=== PATIENT | female | born 1990 | race Caucasian/White ===

== ENCOUNTER 2020-05-23 05:09 | Outpatient (CLI) | payer BC, MEDICAID, OTHER ==
[~2020-05-23] VITALS: Ht 160 cm; Wt 60.9 kg
[~2020-05-23 05:09] MED LIST: CODE-54 PO; CPR500T PO; FERR325C PO; FRS325T PO; IBP600T1 PO; IBP800T PO; MUPI1OIN6 TP; NAPR-915 PO; ONDA4TAB11 PO; PREN1TAB39; PREN1TAB39 PO; SULF1TAB35 PO
--- NOTE | 2020-05-23 05:18 | NUR ---
TOMAS OGDEN presented to unit via ambulation from ED, accompanied by s/o, with c/o CONTRACTIONS. TOMAS OGDEN weighed, gowned, voided, and to bed. EFHM and TOCO applied, VS taken. TOMAS OGDEN oriented to bed controls, call light, TV, heat, and A/C controls. above details and further assessments carried out per VINH ARTHUR.
[2020-05-23 05:24] VITALS: BP 123/75
[2020-05-23 05:37] VITALS: BP 123/75
--- NOTE | 2020-05-23 06:33 | NUR ---
This RN called Dr Strickland to notify of patient arrival with complaints of contractions since 1999 last night. Notified of SVE upon arrival and latest SVE, contraction pattern, gestational age and FHR variability. New orders for discharge home received.
--- NOTE | 2020-05-23 06:50 | NUR ---
Discharge instructions reviewed and given to patient. Noted to patient that Dr Strickland would like her to schedule an appointment this week to be seen at this office. Patient verbalized understanding.
--- NOTE | 2020-05-23 06:56 | NUR ---
Patient and ambulating off of unit to private vehicle.
--- NOTE | 2020-05-24 08:53 | Physician Query-Final Dx ---
JANET CABRALES 05/24/20 0853: Clinic Account Progress/Dx Physician Query: Please give diagnosis Please include # weeks gestation Date of Service May 23, 2020 at 05:09 JESÚS SCHWARTZ DO 05/24/20 1345: Clinic Account Progress/Dx Physician Query: Please give diagnosis DIAGNOSIS: Diagnosis Intrauterine at 39 2/7 weeks 2. Contractions JANET CABRALES May 24, 2020 08:53 JESÚS SCHWARTZ DO May 24, 2020 13:45
== END 2020-05-23 06:56 | disposition home or self-care (01) ==
LOC: WSo 05:09 → LDRP 05:09 → WSo 06:56
PROVIDERS: ATTEND Obstetrics & Gynecology
DX: O62.9 Abnormality of forces of labor, unspecified (principal); Z3A.39 39 weeks gestation of pregnancy
CPT/HCPCS: 99213

== ENCOUNTER 2020-06-02 21:42 | Observation (INO) | payer MEDICAID ==
[~2020-06-02] VITALS: Ht 160 cm; Wt 59.6 kg
--- NOTE | 2020-06-02 21:50 | NUR ---
TOMAS OGDEN presented to unit via ambulatory from ED, accompanied by s.o., with c/o DECREASED MOVEMENT. TOMAS OGDEN weighed, gowned, voided, and to bed. EFHM and TOCO applied, VS taken. TOMAS OGDEN oriented to bed controls, call light, TV, heat, and A/C controls.
[2020-06-02 22:03] VITALS: BP 130/74
[2020-06-02 22:07] VITALS: BP 130/74
--- NOTE | 2020-06-02 22:14 | NUR ---
pt states she has not had care since dec 2019 due to covid-19.
[2020-06-02 22:22] LABS: BILIRUBIN,URINE NEGATIVE (NEGATIVE); COLOR,URINE YELLOW; GLUCOSE, URINE (UA) NEGATIVE (NEGATIVE); KETONES,URINE NEGATIVE (NEGATIVE); LEUKOCYTE ESTERASE ,URINE NEGATIVE (NEGATIVE); NITRITE,URINE NEGATIVE (NEGATIVE); PROTEIN,URINE NEGATIVE (NEGATIVE)
[2020-06-02 22:26] LABS: CLARITY,URINE SL CLOUDY
[2020-06-02 22:29] LABS: BACTERIA,URINE TRACE /HPF
[2020-06-02 23:00] VITALS: BP 114/72
--- NOTE | 2020-06-02 23:17 | NUR ---
Dr Strickland notified of pt arrival and status. Informed that she hasn't had PNC since dec. no GBS on file. New orders received. Will monitor pt overnight. Give IV fluids and notify him of any changes.
[2020-06-02] MEDS: D5 LR IV SOLUTION 1,000 ML IV SCH (23:42)
[2020-06-03] VITALS: BP 108/58
[2020-06-03 00:02] VITALS: BP 108/58
--- NOTE | 2020-06-03 00:15 | NUR ---
pt lying on left side. resting comfortably. states she feels occasional ctx
[2020-06-03 02:00] VITALS: BP 104/50
--- NOTE | 2020-06-03 02:00 | NUR ---
up to bathroom to void. denies any pain or ctx.
--- NOTE | 2020-06-03 05:45 | NUR ---
up to bathroom to void. no c/o of pain or ctx.
[2020-06-03 06:00] VITALS: BP 95/54
[2020-06-03] MEDS: D5 LR IV SOLUTION 1,000 ML IV SCH (06:07)
--- NOTE | 2020-06-03 06:30 | NUR ---
Dr Strickland called for update on pt. informed of sleeping all night with no c/o of ctx. Informed of variable decel at 0530 while pt sleeping. new orders received for pt to be dc'd and follow up with dr strickland in his clinic at 10. Pt states she is unable to drive to [facility]. dr strickland notified. instructed to go to [facility] at 10:00. pt informed and states she will go to clinic.
--- NOTE | 2020-06-03 06:55 | NUR ---
External monitors dc'd. IV removed, cath tip intact.
[2020-06-03 07:01] LABS: BASOPHILS % (AUTO) 0 % (0-10); EOSINOPHILS # (AUTO) 0.1 10^3/uL (0.0-0.3); EOSINOPHILS % (AUTO) 1 % (0-10); HEMATOCRIT 34 % (35-52); HEMOGLOBIN 10.9 G/DL (11.5-16.0); LYMPHOCYTES # (AUTO) 3.2 X 10^3 (1.0-4.0); LYMPHOCYTES % (AUTO) 29 % (12-44); MEAN CORPUSCULAR HEMOGLOBIN 29 PG (25-34); MEAN CORPUSCULAR HGB CONC 32 G/DL (32-36); MEAN CORPUSCULAR VOLUME 89 FL (80-99); MEAN PLATELET VOLUME 13.1 FL (7.4-10.4); MONOCYTES # (AUTO) 0.9 X 10^3 (0.0-1.0); MONOCYTES % (AUTO) 8 % (0-12); NEUTROPHILS # (AUTO) 6.7 X 10^3 (1.8-7.8); NEUTROPHILS % (AUTO) 61 % (42-75); PLATELET COUNT 216 10^3/uL (130-400); RED CELL DISTRIBUTION WIDTH 14.8 % (10.0-14.5); WHITE BLOOD COUNT 10.9 10^3/uL (4.3-11.0)
--- OUTSIDE RECORDS SUMMARY | 2020-06-03 08:34 | XMS REPORT ---
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 [employer] Address [address] [address] Care Team Providers Care Software Applications Designer Name Role Phone RAINER FOOTE Unavailable Unavailable LATOYA MICHELE Unavailable Unavailable KIA GRAYSON Unavailable Unavailable JIHAN, HAYLEE Unavailable Unavailable [facility] Unavailable [phone] LATOYA MICHELE Unavailable [facility] Unavailable SURAJ DUDLEY Unavailable JACK DO, NAILA C Unavailable Unavailable JACK DO, NAILA C Unavailable Unavailable Migration, Doctor Unavailable Unavailable Migration, Doctor Unavailable Unavailable Migration, Doctor Unavailable Unavailable DANILO [place] A BUSINESS ADMINISTRATION PROFESSOR Unavailable Unavailable SEAN CATES BUSINESS ADMINISTRATION PROFESSOR Unavailable Unavailable PEREA DO, DOMONIQUE K Unavailable Unavailable PEREA DO, DOMONIQUE K Unavailable Unavailable zzHEIMAN, HAYLEE Unavailable PEREA, DOMONIQUE Unavailable zzDANILO [place]FR[place] Unavailable zzHEIMAN, HAYLEE Unavailable PCP, OUTSIDE Unavailable Unavailable Unavailable Unavailable PEREA, DOMONIQUE Unavailable PEREA, DOMONIQUE Unavailable Migration, Doctor Unavailable Unavailable SEALS DO, JESÚS E Unavailable Unavailable JACK DO, NAILA C Unavailable Unavailable JACK DO, NAILA C Unavailable Unavailable ARUNA DO KATHY K Unavailable Unavailable VASU WEINSTEIN MD Unavailable Unavailable VASU WEINSTEIN MD Unavailable Unavailable Unavailable Unavailable Unavailable Unavailable Unavailable Unavailable Unavailable Unavailable Allergies The data below is from unstructured sources Substance Reaction Event Type N.K.D.A. Info Not Available Non Drug Allergy Allergen Type Severity Reaction Status Last Updated No Known Drug Allergies Active 12/11/07 No Information Encounters Encounter Date Encounter Type Encounter Diagnosis Care Provider Facility Start: Patient encounter JESÚS E SEALS DO [facility] 06-02-2020 procedure [facility] Start: Patient encounter JESÚS E SEALS DO [facility] 05-23-2020 procedure [facility] End: 05-23-2020 Start: Patient encounter NA NA [facility] 01-06-2020 procedure [facility] Start: [facility] Encounter for JESÚS SEALS [facility] 01-06-2020 supervision of other normal , first trimester Start: Telephone encounter JESÚS SEALS [facility] 12-24-2019 Start: Telephone [facility] 12-16-2019 Start: Patient encounter NA NA [facility] 12-01-2019 procedure [facility] ([id number]) Start: [facility] Encounter for JESÚS SEALS [facility] 12-01-2019 supervision of other normal , first trimester Start: Emergency department KATHY Robison ARUNA Not Avai lable ([id number]) 07-09-2018 patient visit End: 07-09-2018 Start: Patient encounter NA NA Not Availab le ([id number]) 07-09-2018 procedure Start: Emergency department KATHY VALDOVINOS DO [facility] 07-08-2018 patient visit [facility] End: 07-08-2018 Start: Patient encounter OUTSIDE [facility] 05-13-2018 procedure [facility] ([id number]) Start: Evaluation and DOMONIQUE PEREA DO Not Available ([id number]) 05-23-2012 management of inpatient End: 05-24-2012 Start: Patient encounter SEAN CATES Not Availab le ([id number]) 03-21-2012 procedure Start: Patient encounter AFRICA AQUILINOLATOYAMarlon Not Availab le ([id number]) 02-05-2012 procedure Start: Evaluation and VASU WEINSTEIN MD Not Availab le ([id number]) 08-01-2010 management of inpatient End: 08-02-2010 Start: Evaluation and VASU WEINSTEIN MD [facility] 08-01-2010 management of [facility] inpatient End: 08-01-2010 Medical Equipment No Information Goals No Information Immunizations Immunizatio Immunization Notes Care Provider Facility n Date Vaccination ; [facility] aguilera Translations: Work Phone: Marisol ([id number]) [vaccine] Interventions No Information Medications Medication Drug Dates Sig Sig (Original) Class(es) (Normalized) Ferrous Sulfate (Iron) Start: take 1 capsule Ferrou s Sulfate (Iron) 325 ( 65 )Mg 325 ( 65 )Mg Capsule.sa 05-13-2015 by mouth once Capsu le.sa 325 Mg ORAL Daily 90 Cap (1 source) daily 05/13/15 Ibuprofen (Motrin End: Ibuprofen (Motrin T ablet) 800 Mg Tablet, Tablet) 800 Mg Tablet, 1 05-23-2012 1 Each Oral As Needed Discontinued Each Oral (1 source) mupirocin 0.02 mg/mg RNA Start: apply 1 g Mupir ocin 1 Gm Oin.pf.juan 1 Gm TOPICAL topical ointment Synthetase 07-09-2018 topically twice Twice A Day 22 Tube 07/09/18 (1 source) Inhibitor daily Antibacter ial Start: 07-09-2018 apply 1 g Mupirocin 1 Gm topically Oin.pf.juan 1 twice Gm TOPICAL daily Twice A Day 22 Tube 07/09/18 naproxen 500 mg oral Nonsteroid Start: take 1 tablet Nap roxen 500 Mg Tablet 500 Mg ORAL Twice tablet al 07-09-2018 by mouth twice A Day 20 Ta b 07/09/18 (1 source) Anti-infla daily mmatory Drug Start: 07-09-2018 take 1 Naproxen 500 tablet by Mg Tablet 500 mouth Mg ORAL Twice twice A Day 20 Tab daily 07/09/18 Ondansetron (Ondansetron Start: Ondansetron (Ondansetron Odt) 4 Mg Odt) 4 Mg Tab.rapdis, 4 11-21-2010 Tab.rapdis, 4 Mg Oral Every 6 Hours as Mg Oral needed 11/21/10 Discontinued (1 source) End: 05-23-2012 Vits Vits W-Ca,Fe,Fa( N OT APPLICABLE W-Ca,Fe,Fa(<1MG) () 1 Each Tablet (1 source) sulfamethoxazole 800 mg Dihydrofol Start: Sulfam ethoxazole/Trimethoprim (Bactrim / trimethoprim 160 mg ate 07-09-2018 Ds Table t) 1 Each Tablet 1 Each ORAL oral tablet Reductase Twice A Day 20 Tab 07/09/18 (1 source) Inhibitor Antibacter ial, Sulfonamid e Antimicrob ial Start: 07-09-2018 Sulfamethoxazo le/Trimethopri m (Bactrim Ds Tablet) 1 Each Tablet 1 Each ORAL Twice A Day 20 Tab 07/09/18 Payers No Information Plan of Treatment Date Care Activity Detail Author Start: Radiography of hand X-ray of left hand, three [facility] 07-09-2018 views [place] ([id number]) Problems Active Problems Problem Problem Date Last Documented Episodic/Chr Provider Classificati Recorded Date onic on E Codes: Contact with other sharp object(s), 05-23-2020 Epi sodic KATHY ARUNA DO Cut/pierceb not elsewhere classified, i nitial (6 sources) encounter Early or Threatened premature labor, 06-02-2020 Pieter LEONE threatened antepartum condition or JS SANTIAGO labor complication (2 sources) Abnormality of forces of labor, 05-24-2020 Episodi c JESÚS SEALS distress and unspecified DO abnormal forces of labor (1 source) Fluid and Dehydration 06-02-2020 Episodic VASU electrolyte JS SANTIAGO disorders (2 sources) Open wounds Laceration without foreign body of 05-23-2020 Epis odic KATHY ARUNA DO of left hand, initial encounte r ; extremities Translations: [Puncture wou nd (9 sources) without foreign body of lef t hand, initial encounter] Other Anemia of mother, delivered, with Chronic DOMONIQUE PEREA complication mention of complication DO s of ; puerperium affecting management of mother (3 sources) Other Other specified complications of 06-02-2020 Episod ic VASU complication , antepartum condition or JS SANTIAGO s of complication (2 sources) Residual 39 weeks gestation of 05-24-2020 Episodi c JESÚS SEALS codes; DO unclassified (1 source) Substance-re Nicotine dependence, unspecified, 05-23-2020 Roll Scale Worker karen KATHY ARUNA DO lated uncomplicated disorders (6 sources) Past or Other Problems Problem Problem Date Last Documented Episodic/Chr Provider Classificati Recorded Date onic on Deficiency Anemia, unspecified Episodic DOMONIQUE BE AN and other DO anemia (3 sources) Fetopelvic Shoulder (girdle) dystocia, Episodic DOMONIQUE PEREA disproportio delivered, with or without mention DO n; of antepartum condition obstruction (3 sources) OB-related Second-degree perineal laceration, Episodic DOMONIQUE PEREA trauma to delivered, with or without mention DO perineum and of antepartum condition vulva (3 sources) Procedures Date Procedure Procedure Detail Performing Cl inician Start: Other manually NAILA JACK DO 05-12-2015 assisted delivery Start: Urnls dip Doctor Migration 05-21-2012 stick/tablet rgnt non-auto w/o micrscp Start: Urnls dip DOMONIQUE PEREA 05-14-2012 stick/tablet rgnt Other Phone: non-auto w/o micrscp Start: Urnls dip DOMONIQUE PEREA 05-01-2012 stick/tablet rgnt Other Phone: non-auto w/o micrscp Other manually NAILA JACK DO assisted delivery Repair of other DOMONIQUE PEREA DO current obstetric laceration Results Test Name Value Interpreta Reference Facilit Date tion Range y Time not yet categorized on 2020-06-03 WRISTBAND NUMBER [id number] Invalid PENDING Interpreta LOCATIO 020 tion Code [facility] 03:34-0 ([id number]) 400 laboratory on 2020-06-03 ABO and Rh group Nom OP Invalid PENDING 06-03 (Bld) Interpreta LOCATIO 020 tion Code N [facility] 03:35-0 ([id number]) 400 Blood group antibody Negative Invalid PENDING 06-03 screen Ql Interpreta LOCATIO 020 tion Code N [facility] 03:44-0 ([id number]) 400 laboratory on 2020-06-02 Bacteria LM Ql TRACE Invalid PENDING (Urine sed) Interpreta LOCATIO 020 tion Code N [facility] 17:50-0 ([id number]) 400 Basophils (Bld) 0.0 10*3/uL Negative 0.0-0.1 PENDING 06-02 [#/Vol] 10*3/uL LOCATIO 020 [facility] 19:30-0 ([id number]) 400 Basophils/100 WBC 0 % Negative 0-10 % PENDING 06-02 (Bld) LOCATIO 020 [facility] 19:30-0 ([id number]) 400 Bilirubin Ql (U) Negative Invalid NEGATIVE PENDING Interpreta LOCATIO 020 tion Code N [facility] 17:50-0 ([id number]) 400 Casts LM Ql (Urine NONE Invalid PENDING sed) Interpreta LOCATIO 020 tion Code N [facility] 17:50-0 ([id number]) 400 Clarity (U) SL CLOUDY Invalid PENDING Interpreta LOCATIO 020 tion Code N [facility] 17:50-0 ([id number]) 400 Color (U) YELLOW Invalid PENDING Interpreta LOCATIO 020 tion Code N [facility] 17:50-0 ([id number]) 400 Crystals LM Ql NONE Invalid PENDING (Urine sed) Interpreta LOCATIO 020 tion Code N [facility] 17:50-0 ([id number]) 400 Eosinophils (Bld) 0.1 10*3/uL Negative 0.0-0.3 PENDING [#/Vol] 10*3/uL LOCATIO 020 [facility] 19:30-0 ([id number]) 400 Eosinophils/100 WBC 1 % Negative 0-10 % PENDING (Bld) LOCATIO 020 [facility] 19:30-0 ([id number]) 400 Epithelial 10-25 Abnormal PENDING cells.squamous LM Ql LOCATIO 020 (Urine sed) N [facility] 17:50-0 ([id number]) 400 Erythrocyte 14.8 % High 10.0-14.5 PENDING distribution width % LOCATIO 020 (RBC) [Ratio] N [facility] 19:30-0 ([id number]) 400 Glucose Auto test Negative Invalid NEGATIVE PENDING 06-02 strip Ql (U) Interpreta LOCATIO 020 tion Code N [facility] 17:50-0 ([id number]) 400 Hematocrit (Bld) 34 % Low 35-52 % PENDING [Volume fraction] LOCATIO 020 [facility] 19:30-0 ([id number]) 400 Hemoglobin (Bld) 10.9 g/dL Low 11.5-16.0 PENDING [Mass/Vol] g/dL LOCATIO 020 [facility] 19:30-0 ([id number]) 400 Ketones Auto test Negative Invalid NEGATIVE PENDING 06-02 strip Ql (U) Interpreta LOCATIO 020 tion Code N [facility] 17:50-0 ([id number]) 400 Leukocyte esterase Negative Invalid NEGATIVE PENDING 05-19 Test strip Ql (U) Interpreta LOCATIO Tres tion Code N [facility] 17:50-0 ([id number]) 400 Lymphocytes (Bld) 3.2 10*3/uL Negative 1.0-4.0 PENDING [#/Vol] 10*3 LOCATIO Tres [facility] 19:30-0 ([id number]) 400 Lymphocytes/100 WBC 29 % Negative 12-44 % PENDING (Bld) LOCATIO 020 [facility] 19:30-0 ([id number]) 400 MCH (RBC) [Entitic 29 pg Negative 25-34 pg PENDING 05-19- mass] [place] 020 [facility] 19:30-0 ([id number]) 400 MCHC (RBC) 32 g/dL Negative 32-36 g/dL PENDING [Mass/Vol] [facility] 19:30-0 ([id number]) 400 MCV (RBC) [Entitic 89 Negative 80-99 PENDING 05-19-2 vol] [foz_us] [facility] 19:30-0 ([id number]) 400 Monocytes (Bld) 0.9 10*3/uL Negative 0.0-1.0 PENDING 06-02 [#/Vol] 10*3 [facility] 19:30-0 ([id number]) 400 Monocytes/100 WBC 8 % Negative 0-12 % PENDING 06-02 (Bld) [place] Tres [facility] 19:30-0 ([id number]) 400 Mucus Ql (Urine sed) SMALL Abnormal PENDING 06-02 LOCATIO Tres [facility] 17:50-0 ([id number]) 400 Neutrophils (Bld) 6.7 10*3/uL Negative 1.8-7.8 PENDING [#/Vol] 10*3 LOCATIO Tres [facility] 19:30-0 ([id number]) 400 Neutrophils/100 WBC 61 % Negative 42-75 % PENDING - (Bld) LOCATIO Tres [facility] 19:30-0 ([id number]) 400 Nitrite Ql (U) Negative Invalid NEGATIVE PENDING Interpreta LOCATIO 020 tion Code N [facility] 17:50-0 ([id number]) 400 pH (U) 7.0 [pH] Invalid 5-9 PENDING Interpreta LOCATIO 020 tion Code N [facility] 17:50-0 ([id number]) 400 Platelet mean volume 13.1 High 7.4-10.4 PENDING (Bld) [Entitic vol] [foz_us] LOCATIO 020 [facility] 19:30-0 ([id number]) 400 Platelets (Bld) 216 10*3/uL Negative 130-400 PENDING 06-02 [#/Vol] 10*3/uL LOCATIO 020 [facility] 19:30-0 ([id number]) 400 Protein Ql (U) Negative Invalid NEGATIVE PENDING Interpreta LOCATIO 020 tion Code N [facility] 17:50-0 (15394) 400 RBC (Bld) [#/Vol] 3.79 10*6/uL Low 4.35-5.85 PENDING 10*6/uL LOCATIO 020 [facility] 19:30-0 (17614) 400 RBC LM.HPF (Urine NONE Invalid PENDING sed) [#/Area] Interpreta LOCATIO 020 tion Code N [facility] 17:50-0 ([id number]) 400 RBC Ql (U) Negative Invalid NEGATIVE PENDING Interpreta LOCATIO 020 tion Code N [facility] 17:50-0 ([id number]) 400 Specific gravity (U) 1.010 Low 1.016-1.02 PENDING 0 [Rel density] 2 LOCATIO 020 [facility] 17:50-0 ([id number]) 400 Urinalysis complete NO Invalid PENDING W Reflex Culture Interpreta LOCATIO 020 panel - Urine tion Code N [facility] 17:50-0 ([id number]) 400 Urobilinogen (U) 0.2 mg/dL Invalid < = 1.0 PENDING [Mass/Vol] Interpreta mg/dL LOCATIO 020 tion Code N [facility] 17:50-0 (84022) 400 WBC (Bld) [#/Vol] 10.9 10*3/uL Negative 4.3-11.0 PENDING 10*3/uL LOCATIO 020 [facility] 19:30-0 (16925) 400 WBC LM.HPF (Urine Invalid [HPF] PENDING sed) [#/Area] Interpreta LOCATIO 020 tion Code N [facility] 17:50-0 ([id number]) 400 not yet categorized on 2019-12-01 CLINICAL Communi INFORMATION: ty [facility] (32975) COMMENT Invalid Communi Interpreta ty tion Code [facility] (29168) COMMENT Invalid Communi Interpreta ty tion Code [facility] (85890) Date of previous Communi biopsy [facility] (47716) Date of previous PAP Communi smear [facility] (52548) Last menstrual Communi period start date [facility] (29159) laboratory on 2019-12-01 ABO group Nom (Bld) O Invalid Communi Interpreta ty tion [facility] (33154) Basophils (Bld) 0.028 10*3/uL Normal 0-200 Communi [#/Vol] cells/uL [facility] (89919) Basophils/100 WBC 0.3 % Normal % Communi (Bld) [facility] (79258) Blood group antibody Detected Normal Communi screen Ql [facility] (49685) C. trachomatis rRNA Not detected Normal NOT Commu ni MACARIO+probe Ql (Unsp DETECTED ty spec) [facility] (56784) Seals Engraver Cyto Communi stain Nom (Cvx/Vag) ty [ID] [facility] (33571) Cytology study Invalid Communi comment Cyto stain Interpreta ty Eric (Cvx/Vag) tion [facility] [Interp] [facility] (61417) Eosinophils (Bld) 0.084 10*3/uL Normal 15-500 Commun i [#/Vol] cells/uL [facility] (47037) Eosinophils/100 WBC 0.9 % Normal % Commun i (Bld) [facility] (59712) Erythrocyte 12.5 % Normal 11.0-15.0 Communi distribution width % ty (RBC) [Ratio] [facility] (11916) General categories Invalid Communi Cyto stain (Cvx/Vag) Interpreta ty [Interp] tion Code [facility] (01296) HAV IgM IA Ql NON-REACTIVE Normal NON-REACTI Communi VE [facility] (16899) HBV core IgM IA Ql NON-REACTIVE Normal NON-REACTI Commun i VE [facility] (54838) HBV surface Ag IA Ql NON-REACTIVE Normal NON-REACTI Comm uni VE [facility] (37133) HCV Ab IA Ql NON-REACTIVE Normal NON-REACTI Communi VE [facility] (56578) HCV Ab Signal/Cutoff 0.02 {ratio} Normal <1.00 Comm uni IA [Rel units/Vol] [facility] (03045) Hematocrit (Bld) 37.9 % Normal 35.0-45.0 Communi [Volume fraction] % [facility] (20111) Hemoglobin (Bld) 13.0 g/dL Normal 11.7-15.5 Communi [Mass/Vol] g/dL [facility] (66912) HIV 1+2 Ab+HIV1 p24 NON-REACTIVE Normal NON-REACTI Commu ni Ag IA Ql VE [facility] (40622) Lymphocytes (Bld) 2.502 10*3/uL Normal 850-3900 Commun i [#/Vol] cells/uL [facility] (58991) Lymphocytes/100 WBC 26.9 % Normal % Commun i (Bld) [facility] (45471) MCH (RBC) [Entitic 31.6 pg Normal 27.0-33.0 Communi mass] pg [facility] (65751) MCHC (RBC) 34.3 g/dL Normal 32.0-36.0 Communi [Mass/Vol] g/dL ty [facility] (62973) MCV (RBC) [Entitic 92.2 fL Normal 80.0-100.0 Communi vol] fL ty [facility] (33160) Microorganism Invalid Communi identified Cyto Interpreta ty stain [facility] Microscopic Communi observation Cyto ty stain Nom (Cvx) [facility] (43583) Monocytes (Bld) 0.558 10*3/uL Normal 200-950 Communi [#/Vol] cells/uL ty [facility] (75172) Monocytes/100 WBC 6.0 % Normal % Communi (Bld) [facility] (85095) N. gonorrhoeae rRNA Not detected Normal NOT Commu ni MACARIO+probe Ql (Unsp DETECTED ty spec) [facility] (84590) Neutrophils (Bld) 6.129 10*3/uL Normal 4092-3385 Commun i [#/Vol] cells/uL ty [facility] (39785) Neutrophils/100 WBC 65.9 % Normal % Commun i (Bld) [facility] (23021) Pathologist Cyto Invalid Communi stain Nom (Cvx/Vag) Interpreta ty [ID] [facility] (77635) Platelet mean volume 12.2 fL Normal 7.5-12.5 Commu ni (Bld) [Entitic vol] fL ty [facility] (63739) Platelets (Bld) 231 10*3/uL Normal 140-400 Communi [#/Vol] Thousand/u ty L [facility] (17923) RBC (Bld) [#/Vol] 4.11 10*6/uL Normal 3.80-5.10 Communi Million/uL [facility] (49477) Reagin Ab RPR Ql (S) NON-REACTIVE Normal NON-REACTI Comm uni VE [facility] (43303) Rh Nom (Bld) Positive Invalid Communi Interpreta ty [facility] (76929) Rubella virus IgG Qn 6.84 Normal index Commu ni (S) ty [facility] (80242) Service comment Invalid Communi (Unsp spec) [Interp] Interpreta ty tion Code [facility] (86309) Specimen source Cyto Communi stain Nom (Cvx/Vag) ty [facility] (66961) Statement of Communi adequacy Cyto stain ty (Cvx/Vag) [Interp] [facility] (78709) WBC (Bld) [#/Vol] 9.3 10*3/uL Normal 3.8-10.8 Communi Thousand/u ty L [facility] (80353) Social History No Information Vital Signs Date Time Vital Sign Value Performing Clinician Facil it 05-21-2012 Body height 160.02 cm Doctor Migration [facility] 11:15-0400 [facility] (85446) 05-21-2012 Body temperature 98.3 [degF] Doctor Migration [facility] 11:15 [facility] (99547) 05-21-2012 Body weight 54.43 kg Doctor Migration [facility] 11:150 [facility] (97752) 05-14-2012 Body height 160.02 cm Pure [employer] [facility] 11:57-0400 Other Phone: [facility] (34886) 05-14-2012 Body temperature 97.9 [degF] [facility] [employer] [facility] 11:57-0400 Other Phone: [facility] ([id number]) 05-14-2012 Body weight 54.66 kg DOMONIQUEAdsame [facility] 11:57-0400 Other Phone: [facility] ([id number]) 05-01-2012 Body height 160.02 cm [employer] [facility] 15:-0400 Other Phone: [facility] ([id number]) 05-01-2012 Body temperature 99.1 [degF] DOMONIQUE [employer] [facility] [id number] Other Phone: [facility] ([id number]) 05-01-2012 Body weight 53.98 kg DOMONIQUE PEREA [facility] [id number] Other Phone: [facility] ([id number]) Functional Status The data below is from unstructured sourcesNo functional status results.No functional status information available.No functional status information available. Mental Status No Information Summary Purpose eClinicalWorks SubmissioneClinicalWorks SubmissioneClinicalWorks SubmissioneClinicalWorks SubmissioneClinicalWorks SubmissioneClinicalWorks SubmissioneClinicalWorks Submission Advance Directives Directive Response Recor ded Date/Time Advance Directives No 9:50pm Health Care Power of Area Relief Pilot No 05/11/15 9:50pm Organ Donor Yes 05/11/15 9:50pm Resuscitation Status Full Code 05/11/15 9:50pm Directive Response Recor ded Date/Time Advance Directives No 11:56pm Health Care Power of Area Relief Pilot No 07/08/18 11:56pm Organ Donor Yes 07/08/18 11:56pm Resuscitation Status Full Code 07/08/18 11:56pm Discharge Instructions Patient Instructions Physician Instructions New, Converted or Re-Newed RX: RX on Chart Additional Follow Up: Yes (6 weeks with Jack/Cyndee. No care. Needs contraception) Activity: Activity as Tolerated Driving Instructions: You May Drive NO SMOKING: NO SMOKING Nothing Inside Vagina: No Douching, No [place], No Tampons Discharge Diet: No Restrictions Symptoms to Report to : Swelling Increased, Bleeding Excessive, Fever Over 101 Degrees F, Cramps in Feet or Legs, Vaginal Discharge Foul For Any Problems or Questions: Contact Your Physician No hospital discharge instruction information available. Additional Source Comments This clinical document has been generated using [employer] software that has been certified by the Office of the National Coordinator for Health Information Technology (ONC 15.99.04.3023.Diam.31.00.0.614900) and the National Committee for Gaming Associate (NCQA, as an eMeasure certified technology). FOR RECORDS PERTAINING TO PATIENTS WHO ARE OR HAVE BEEN ENROLLED IN A CHEMICAL D EPENDENCY/SUBSTANCE ABUSE PROGRAM, SOME INFORMATION MAY BE OMITTED. This clinica l summary was aggregated from multiple sources. Caution should be exercised in using it in the provision of clinical care. This summary normalizes information from multiple sources, and as a consequence, information in this document may ma terially change the coding, format and clinical context of patient data. In bran tion, data may be omitted in some cases. CLINICAL DECISIONS SHOULD BE BASED ON T HE PRIMARY CLINICAL RECORDS. [employer] provides no warranty or guara ntee of the accuracy or completeness of information in this document.The followi information is based on time limited clinical information UNRECOGNIZED CONTENT PROVIDED BELOW FOR UNRECOGNIZED SECTION REASON FOR VISIT right lower back dental pain since yesterday. pt has had a broken tooth for [facility] hs...but just got bad yesterday. [id number]
--- OUTSIDE RECORDS SUMMARY | 2020-06-03 08:35 | XMS REPORT ---
Author Author Alfreda Cooper Doctor Organization [facility] Address Unknown Phone Unavailable Care Team Providers Care Jewelry Consultant Name Role Phone Migration, Doctor Unavailable Unavailable PROBLEMS Type Condition ICD9-CM Code AFU39-OD Code Onset Dates Condition S tatus SNOMED Code Problem Supervision of other normal V22.1 Active 664047597 Problem Maternal anemia of mother, c omplicating , childbirth, or the puerperium, unspecified as to episode of care 648.20 Active 05924298 Problem Screening for diabetes mellitus V77.1 Active 349334819 Problem Screening examination for venereal disease V74.5 Active 315538518 Problem Routine gynecological examination V72.31 Active 274401517721906 Problem Insufficient care V23.7 Act evelyn [id number] ALLERGIES No Information ENCOUNTERS Encounter Location Date Diagnosis [facility] [address] [id number] [address] [place] [address] Apr, Jaw pain R68.84 and Open fra cture of tooth, initial encounter S02.5XXB [place] [address] [place] [address] Oct, Encounter for Depo-Provera c ontraception Z30.42 [place] [address] [address] [id number] [address] [place] [address] Aug, Encounter for Depo-Provera c ontraception Z30.42 [place] [address] [place] [address] Aug, [place] [address] [place] [address] [id number] [place] [address] Aug, control counseling Z30 .9 [facility] [address] [id number] [address] [place] [address] Jun, Sore throat J02.9 and Strep pharyngitis J02.0 [facility] [address] [place] [id number] 57 Oct, Hematuria R31.9 [facility] [address] [id number] [address] [place] [address] Jul, [facility] [address] [facility] [id number] [address] [place] [address] Jul, Headache 784.0 and Back pain 724.5 [facility] [address] [id number] [address] [place] [address] Jun, Routine follow-up V24.2 [facility] [address] [id number] [address] [place] [address] Feb, [facility] [address] [id number] [address] [place] [address] Feb, [facility] [address] [id number] [address] [place] [address] Dec, [facility] [address] [id number] [address] [place] [address] Dec, [facility] [address] [id number] [address] [place] [address] Jun, [facility] [address] [facility] [id number] [address] [place] [address] Jun, [facility] [address] [id number] [address] [place] [address] Jun, [facility] [address] [id number] [address] [place] [address] May, [facility] [address] [id number] [address] [place] [address] Apr, [facility] [address] [id number] [address] [place] [address] Apr, [facility] [address] [id number] [address] [place] [address] Apr, [facility] [address] [id number] [address] [place] [address], [place] [address] 07 Apr, 2012 [facility] [address] [id number] [address] [place] [address], [place] [address] 05 Apr, 2012 [facility] [address] [id number] [address] [place] [address], [place] [address] March, [facility] [address] [id number] [address] [place] [address], [place] [address] March, [facility] [address] [id number] [address] [place] [address], [place] [address] March, [facility] [address] [id number] [address] [place] [address], [place] [address] March, [facility] [address] [id number] [address] [place] [address], [place] [address] Feb, [facility] [address] [id number] [address] [place] [address], [place] [address] 04 Feb, 2012 [facility] [address] [id number] [address] [place] [address], [place] [address] 03 Feb, 2012 [facility] [address] [id number] [address] [place] [address], [place] [address] 23 Jan, 2012 [facility] [address] [id number] [address] [place] [address], [place] [address] 16 Jan, 2012 [facility] [address] [id number] [address] [place] [address], [place] [address] 15 Jan, 2012 [facility] [address] [id number] [address] [place] [address], [place] [address] 14 Jan, 2012 [facility] [address] [id number] [address] [place] [address], [place] [address] 13 Jan, 2012 [facility] [address] [id number] [address] [place] [address], [place] [address] 13 Jan, 2012 [facility] [address] [id number] [address] [place] [address] Oct, [facility] [address] [facility] [id number] [address] [place] [address] Oct, [facility] [address] [facility] [id number] [address] [place] [address] Aug, [facility] [address] [facility] [id number] [address] [place] [address] Aug, [facility] [address] [facility] [id number] [address] [place] [address] Jun, [facility] [address] [facility] [id number] [address] [place] [address] May, [facility] [address] [facility] [id number] [address] [place] [address] Apr, IMMUNIZATIONS No Known Immunizations SOCIAL HISTORY Never Assessed REASON FOR VISIT EMR-[facility] PLAN OF CARE VITAL SIGNS MEDICATIONS Unknown Medications RESULTS No Results PROCEDURES No Known procedures INSTRUCTIONS MEDICATIONS ADMINISTERED No Known Medications MEDICAL (GENERAL) HISTORY Type Description Date Medical History Depression Medical History ADHD Hospitalization History childbirth x 3
--- OUTSIDE RECORDS SUMMARY | 2020-06-03 08:35 | XMS REPORT ---
Author Author Alfreda Robbins Organization [facility] Address [address] [place] [address] Care Team Providers Care Aviation Consultant Name Role Phone HAYLEE Robbins Unavailable PROBLEMS Type Condition ICD9-CM Code KHX18-NM Code Onset Dates Condition S tatus SNOMED Code Problem Supervision of other normal V22.1 Active 103162493 Problem Maternal anemia of mother, c omplicating , childbirth, or the puerperium, unspecified as to episode of care 648.20 Active 92430909 Problem Screening for diabetes mellitus V77.1 Active 279665768 Problem Screening examination for venereal disease V74.5 Active 386983799 Problem Routine gynecological examination V72.31 Active 644830440508278 Problem Insufficient care V23.7 Act evelyn [id number] ALLERGIES No Information ENCOUNTERS Encounter Location Date Diagnosis [facility] [address] [address] Apr, Jaw pain R68.84 and Open fra cture of tooth, initial encounter S02.5XXB [facility] [address] [place] [address] [id number] [address] [place] [address] Oct, Encounter for Depo-Provera c ontraception Z30.42 [facility] [address] [id number] [address] [place] [address] Aug, Encounter for Depo-Provera c ontraception Z30.42 [facility] [address] [place] [address] [id number] [address] [place] [address] Aug, [facility] [address] [place] [address] [id number] [address] [place] [address] Aug, control counseling Z30 .9 [facility] [address] [id number] [address] [place] [address] Jun, Sore throat J02.9 and Strep pharyngitis J02.0 [facility] [address] [place] [id number] Oct, Hematuria R31.9 [facility] [address] [id number] [address] [place] [address] Jul, [facility] [address] [id number] [address] [place] [address] Jul, Headache 784.0 and Back pain 724.5 [facility] [address] [id number] [address] [place] [address] Jun, Routine follow-up V24.2 [facility] [address] [id number] [address] [place] [address] Feb, [facility] [address] [id number] [address] [place] [address] Feb, [facility] [address] [id number] [address] [place] [address] Dec, [facility] [address] [id number] [address] [place] [address] Dec, [facility] [address] [id number] [address] [place] [address] Jun, [facility] [address] [id number] [address] [place] [address] Jun, [facility] [address] [id number] [address] [place] [address] Jun, [facility] [address] [id number] [address] [place] [address] May, [facility] [address] [id number] [address] [place] [address] Apr, [facility] [address] [id number] [address] [place] [address] Apr, [facility] [address] [id number] [address] [place] [address], [place] [address] 13 Apr, 2012 [facility] [address] [id number] [address] [place] [address], [place] [address] 07 Apr, 2012 [facility] [address] [id number] [address] [place] [address], [place] [address] 05 Apr, 2012 [facility] [address] [id number] [address] [place] [address], [place] [address] March, [facility] [address] [id number] [address] [place] [address], [place] [address] March, [facility] [address] [id number] [address] [place] [address], [place] [address] March, [facility] [address] [id number] [address] [place] [address], [place] [address] March, [facility] [address] [id number] [address] [place] [address], [place] [address] 25 Feb, 2012 [facility] [address] [id number] [address] [place] [address], [place] [address] 04 Feb, 2012 [facility] [address] [id number] [address] [place] [address], [place] [address] 03 Feb, 2012 [facility] [address] [id number] [address] [place] [address], [place] [address] 23 Jan, 2012 [facility] [address] [id number] [address] [place] [address], [place] [address] 16 Jan, 2012 [facility] [address] [id number] [address] [place] [address], [place] [address] 15 Jan, 2012 [facility] [address] [id number] [address] [place] [address], [place] [address] 14 Jan, 2012 [facility] [address] [id number] [address] [place] [address], [place] [address] 13 Jan, 2012 [facility] [address] [id number] [address] [place] [address] Jan, [facility] [address] [id number] [address] [place] [address] Oct, [facility] [address] [facility] [id number] [address] [place] [address] Oct, [facility] [address] [facility] [id number] [address] [place] [address] Aug, [facility] [address] [facility] [id number] [address] [place] [address] Aug, [facility] [address] [facility] [id number] [address] [place] [address] Jun, [facility] [address] [facility] [id number] [address] [place] [address] May, [facility] [address] [facility] [id number] [address] [place] [address] Apr, IMMUNIZATIONS No Known Immunizations SOCIAL HISTORY Never Assessed REASON FOR VISIT PLAN OF CARE VITAL SIGNS MEDICATIONS Unknown Medications RESULTS No Results PROCEDURES No Known procedures INSTRUCTIONS MEDICATIONS ADMINISTERED No Known Medications MEDICAL (GENERAL) HISTORY Type Description Date Medical History Depression Medical History ADHD Hospitalization History childbirth x 3
--- OUTSIDE RECORDS SUMMARY | 2020-06-03 08:35 | XMS REPORT ---
Author Author Alfreda Cooper Doctor Organization [facility] Address Unknown Phone Unavailable Care Team Providers Care Computer Peripheral Equipment Operator Name Role Phone Migration, Doctor Unavailable Unavailable PROBLEMS Type Condition ICD9-CM Code WRP21-IQ Code Onset Dates Condition S tatus SNOMED Code Problem Supervision of other normal V22.1 Active 002058140 Problem Maternal anemia of mother, c omplicating , childbirth, or the puerperium, unspecified as to episode of care 648.20 Active 56722905 Problem Screening for diabetes mellitus V77.1 Active 560751049 Problem Screening examination for venereal disease V74.5 Active 097593900 Problem Routine gynecological examination V72.31 Active 277231636017382 Problem Insufficient care V23.7 Act evelyn [id number] ALLERGIES No Information ENCOUNTERS Encounter Location Date Diagnosis [facility] [address] [place] [id number] [address] [place] [address] Apr, Jaw pain R68.84 and Open fra cture of tooth, initial encounter S02.5XXB [place] [address] [place] [address] Oct, Encounter for Depo-Provera c ontraception Z30.42 [place] [address] [place] [id number] [address] [place] [address] Aug, Encounter for Depo-Provera c ontraception Z30.42 [place] [address] [place] [address] Aug, [place] [address] [place] [address] [id number] [address] [place] [address] Aug, control counseling Z30 .9 [facility] [address] [id number] [address] [place] [address] Jun, Sore throat J02.9 and Strep pharyngitis J02.0 [facility] [address] [place] [id number] Oct, Hematuria R31.9 [facility] [address] [id number] [address] [place] [address] Jul, [facility] [address] [facility] [id number] [address] [place] [address] Jul, Headache 784.0 and Back pain 724.5 [facility] [address] [id number] [address] [place] [address] Jun, Routine follow-up V24.2 [facility] [address] [id number] [address] [place] [address] Feb, [facility] [address] [id number] [address] [place] [address] Feb, [facility] [address] [id number] [address] [place] [address] Dec, [facility] [address] [id number] [address] [place] [address] Dec, [facility] [address] [id number] [address] [place] [address] Jun, [facility] [address] [facility] [id number] [address] [place] [address] Jun, [facility] [address] [id number] [address] [place] [address] Jun, [facility] [address] [id number] [address] [place] [address] May, [facility] [address] [id number] [address] [place] [address] Apr, [facility] [address] [id number] [address] [place] [address] Apr, [facility] [address] [id number] [address] [place] [address] Apr, [facility] [address] [id number] [address] [place] [address], [place] [address] 07 Apr, 2012 [facility] [address] [id number] [address] [place] [address], [place] [address] 05 Apr, 2012 [facility] [address] [id number] [address] [place] [address], [place] [address] March, [facility] [address] [id number] [address] [place] [address], [place] [address] March, [facility] [address] [id number] [address] [place] [address], [place] [address] March, [facility] [address] [id number] [address] [place] [address], [place] [address] March, [facility] [address] [id number] [address] [place] [address], [place] [address] Feb, [facility] [address] [id number] [address] [place] [address], [place] [address] 04 Feb, 2012 [facility] [address] [id number] [address] [place] [address], [place] [address] 03 Feb, 2012 [facility] [address] [id number] [address] [place] [address], [place] [address] 23 Jan, 2012 [facility] [address] [id number] [address] [place] [address], [place] [address] 16 Jan, 2012 [facility] [address] [id number] [address] [place] [address], [place] [address] 15 Jan, 2012 [facility] [address] [id number] [address] [place] [address], [place] [address] 14 Jan, 2012 [facility] [address] [id number] [address] [place] [address], [place] [address] 13 Jan, 2012 [facility] [address] [id number] [address] [place] [address], [place] [address] 13 Jan, 2012 [facility] [address] [id number] [address] [place] [address] Oct, [facility] [address] [facility] [id number] [address] [place] [phone] Oct, [facility] [address] [facility] [id number] [address] [place] [phone] Aug, [facility] [address] [facility] [id number] [address] [place] [phone] Aug, [facility] [address] [facility] [id number] [address] [place] [address] Jun, [facility] [address] [facility] [id number] [address] [place] [phone] May, [facility] [address] [facility] [id number] [address] [place] [phone] Apr, IMMUNIZATIONS No Known Immunizations SOCIAL HISTORY Never Assessed REASON FOR VISIT [facility] [place] C[place] VITAL SIGNS MEDICATIONS Medication Instructions Dosage Frequency Start Date End Date Duration S tatus Ferrous Sulfate 325 mg (65 mg iron) 1 tablet by Oral r oute 2 times per day Apr, Active RESULTS No Results PROCEDURES No Known procedures INSTRUCTIONS MEDICATIONS ADMINISTERED No Known Medications MEDICAL (GENERAL) HISTORY Type Description Date Medical History Depression Medical History ADHD Hospitalization History childbirth x 3
--- OUTSIDE RECORDS SUMMARY | 2020-06-03 08:35 | XMS REPORT ---
Author Author Alfreda PEREA [facility] Address [address] [place] [address] Care Team Providers Care Medical Office Representative Name Role Phone DOMONIQUE PEREA Unavailable PROBLEMS Type Condition ICD9-CM Code PAW23-SU Code Onset Dates Condition S tatus SNOMED Code Problem Supervision of other normal V22.1 Active 806613428 Problem Maternal anemia of mother, c omplicating , childbirth, or the puerperium, unspecified as to episode of care 648.20 Active 81662710 Problem Screening for diabetes mellitus V77.1 Active 279478027 Problem Screening examination for venereal disease V74.5 Active 991389478 Problem Routine gynecological examination V72.31 Active [id number] Problem Insufficient care V23.7 Act evelyn [id number] ALLERGIES No Information ENCOUNTERS Encounter Location Date Diagnosis [facility] [address] [id number] [address] [place] [address] Apr, Jaw pain R68.84 and Open fra cture of tooth, initial encounter S02.5XXB [facility] [address] [id number] [address] [place] [address] Oct, Encounter for Depo-Provera c ontraception Z30.42 [facility] [address] [facility] [id number] [address] [place] [address] Aug, Encounter for Depo-Provera c ontraception Z30.42 [facility] [address] [facility] [id number] [address] [place] [address] Aug, [facility] [address] [id number] [address] [place] [address] Aug, control counseling Z30 .9 [facility] [address] [id number] [address] [place] [address] Jun, Sore throat J02.9 and Strep pharyngitis J02.0 [facility] [address] [place] [id number] 57 Oct, Hematuria R31.9 [facility] [address] [facility] [id number] [address] [place] [address] Jul, [facility] [address] [facility] [id number] [address] [place] [address] Jul, Headache 784.0 and Back pain 724.5 [facility] [address] [facility] [id number] [address] [place] [address] Jun, Routine follow-up V24.2 [facility] [address] [facility] [id number] [address] [place] [address] Feb, [facility] [address] [facility] [id number] [address] [place] [address] Feb, [facility] [address] [facility] [id number] [address] [place] [address] Dec, [facility] [address] [facility] [id number] [address] [place] [address] Dec, [facility] [address] [facility] [id number] [address] [place] [address] Jun, [facility] [address] [facility] [id number] [address] [place] [address] Jun, [facility] [address] [facility] [id number] [address] [place] [address] Jun, [facility] [address] [id number] [address] [place] [address] May, [facility] [address] [facility] [id number] [address] [place] [address] Apr, [facility] [address] [id number] [address] [place] [address] Apr, [facility] [address] [id number] [facility] [address] 13 Apr, 2012 [facility] [address] [id number] [address] [place] [address], [place] [address] Apr, [facility] [address] [id number] [address] [place] [address], [place] [address] Apr, [facility] [address] [id number] [address] [place] [address], [place] [address] March, [facility] [address] [id number] [address] [place] [address], [place] [address] March, [facility] [address] [id number] [address] [place] [address], [place] [address] March, [facility] [address] [id number] [address] [place] [address], [place] [address] March, [facility] [address] [id number] [address] [place] [address], [place] [address] Feb, [facility] [address] [id number] [address] [place] [address], [place] [address] Feb, [facility] [address] [id number] [address] [place] [address], [place] [address] Feb, [facility] [address] [id number] [address] [place] [address], [place] [address] 23 Jan, 2012 [facility] [address] [id number] [address] [place] [address], [place] [address] 16 Jan, 2012 [facility] [address] [id number] [address] [place] [address], [place] [address] 15 Jan, 2012 [facility] [address] [id number] [address] [place] [address], [place] [address] 14 Jan, 2012 [facility] [address] [id number] [address] [place] [address], [place] [address] 13 Jan, 2012 [facility] [address] [id number] [address] [place] [address], [place] [address] 13 Jan, 2012 [facility] [address] [id number] [address] [place] [address] 08 Oct, 2010 [facility] [address] [id number] [address] [place] [address] Oct, [facility] [address] [id number] [address] [place] [address] Aug, [facility] [address] [id number] [address] [place] [address] Aug, [facility] [address] [id number] [address] [place] [address] Jun, [facility] [address] [id number] [address] [place] [address] May, [facility] [address] [id number] [address] [place] [address] Apr, IMMUNIZATIONS No Known Immunizations SOCIAL HISTORY Never Assessed REASON FOR VISIT PLAN OF CARE VITAL SIGNS Height 63 in 2012-05-07 Weight 121 lbs 2012-05-07 Temperature 98.2 degrees Fahrenheit 2012-05-07 Heart Rate 90 bpm 2012-05-07 Respiratory Rate 18 2012-05-07 Blood pressure systolic 90 mmHg 2012-05-07 Blood pressure diastolic 60 mmHg 2012-05-07 MEDICATIONS Unknown Medications RESULTS No Results PROCEDURES Procedure Date Ordered Result Body Site URINE-NO MICRO May 07, 2012 INSTRUCTIONS MEDICATIONS ADMINISTERED No Known Medications MEDICAL (GENERAL) HISTORY Type Description Date Medical History Depression Medical History ADHD Hospitalization History childbirth x 3
--- OUTSIDE RECORDS SUMMARY | 2020-06-03 08:35 | XMS REPORT ---
Author Author Alfreda Cooper Doctor Organization [facility] Address Unknown Phone Unavailable Care Team Providers Care Rabbit Fancier Name Role Phone Migration, Doctor Unavailable Unavailable PROBLEMS Type Condition ICD9-CM Code PNS63-FU Code Onset Dates Condition S tatus SNOMED Code Problem Supervision of other normal V22.1 Active 897637770 Problem Maternal anemia of mother, c omplicating , childbirth, or the puerperium, unspecified as to episode of care 648.20 Active 12256119 Problem Screening for diabetes mellitus V77.1 Active 504219782 Problem Screening examination for venereal disease V74.5 Active 806451936 Problem Routine gynecological examination V72.31 Active 489698297585977 Problem Insufficient care V23.7 Act evelyn [id number] ALLERGIES No Information ENCOUNTERS Encounter Location Date Diagnosis [facility] [address] [id number] [address] [place] [address] Apr, Jaw pain R68.84 and Open fra cture of tooth, initial encounter S02.5XXB [place] [address] [place] [address] Oct, Encounter for Depo-Provera c ontraception Z30.42 [place] [address] [id number] [address] [place] [address] Aug, Encounter for Depo-Provera c ontraception Z30.42 [place] [address] [place] [address] Aug, [place] [address] [id number] [address] [place] [address] Aug, control counseling Z30 .9 [facility] WALK IN [facility] [address] [id number] [address] [place] [address] Jun, Sore throat J02.9 and Strep pharyngitis J02.0 [facility] [address] [place] [id number] 57 Oct, Hematuria R31.9 [facility] [address] [id number] [address] [place] [address] Jul, [facility] [address] [facility] [id number] [address] [place] [address] Jul, Headache 784.0 and Back pain 724.5 [facility] [address] [id number] [address] [place] [address] Jun, Routine follow-up V24.2 [facility] [address] [id number] [address] [place] [address] Feb, [facility] [address] [id number] [address] [place] [address] Feb, [facility] [address] [id number] [address] [place] [address] Dec, [facility] [address] [id number] [address] [place] [address] Dec, [facility] [address] [id number] [address] [place] [address] Jun, [facility] [address] [facility] [id number] [address] [place] [address] Jun, [facility] [address] [id number] [address] [place] [address] Jun, [facility] [address] [id number] [address] [place] [address] May, [facility] [address] [id number] [address] [place] [address] Apr, [facility] [address] [id number] [address] [place] [address] Apr, [facility] [address] [id number] [address] [place] [address] Apr, [facility] [address] [id number] [address] [place] [address], [place] [address] 07 Apr, 2012 [facility] [address] [id number] [address] [place] [address], [place] [address] 05 Apr, 2012 [facility] [address] [id number] [address] [place] [address], [place] [address] March, [facility] [address] [id number] [address] [place] [address], [place] [address] March, [facility] [address] [id number] [address] [place] [address], [place] [address] March, [facility] [address] [id number] [address] [place] [address], [place] [address] March, [facility] [address] [id number] [address] [place] [address], [place] [address] Feb, [facility] [address] [id number] [address] [place] [address], [place] [address] 04 Feb, 2012 [facility] [address] [id number] [address] [place] [address], [place] [address] 03 Feb, 2012 [facility] [address] [id number] [address] [place] [address], [place] [address] 23 Jan, 2012 [facility] [address] [id number] [address] [place] [address], [place] [address] 16 Jan, 2012 [facility] [address] [id number] [address] [place] [address], [place] [address] 15 Jan, 2012 [facility] [address] [id number] [address] [place] [address], [place] [address] 14 Jan, 2012 [facility] [address] [id number] [address] [place] [address], [place] [address] 13 Jan, 2012 [facility] [address] [id number] [address] [place] [address], [place] [address] 13 Jan, 2012 [facility] [address] [id number] [address] [place] [address] Oct, [facility] [address] [facility] [id number] [address] [place] [phone] Oct, [facility] [address] [facility] [id number] [address] [place] [address] Aug, [facility] [address] [facility] [id number] [address] [place] [address] Aug, [facility] [address] [facility] [id number] [address] [place] [address] Jun, [facility] [address] [facility] [id number] [address] [place] [address] May, [facility] [address] [facility] [id number] [address] [place] [address] Apr, IMMUNIZATIONS No Known Immunizations SOCIAL HISTORY Never Assessed REASON FOR VISIT [facility]MR[facility] PLAN OF CARE VITAL SIGNS MEDICATIONS Unknown Medications RESULTS No Results PROCEDURES No Known procedures INSTRUCTIONS MEDICATIONS ADMINISTERED No Known Medications MEDICAL (GENERAL) HISTORY Type Description Date Medical History Depression Medical History ADHD Hospitalization History childbirth x 3
--- OUTSIDE RECORDS SUMMARY | 2020-06-03 08:35 | XMS REPORT ---
Author Author Alfreda PEREA [facility] Address [address] [place] [address] Care Team Providers Care Parts Puller Name Role Phone DOMONIQUE PEREA Unavailable PROBLEMS Type Condition ICD9-CM Code AIS65-VR Code Onset Dates Condition S tatus SNOMED Code Problem Supervision of other normal V22.1 Active 117972340 Problem Maternal anemia of mother, c omplicating , childbirth, or the puerperium, unspecified as to episode of care 648.20 Active 52010797 Problem Screening for diabetes mellitus V77.1 Active 219344121 Problem Screening examination for venereal disease V74.5 Active 177375744 Problem Routine gynecological examination V72.31 Active 851339400718579 Problem Insufficient care V23.7 Act evelyn [id number] ALLERGIES No Information ENCOUNTERS Encounter Location Date Diagnosis [place] [address] [id number] [address] [place] [address] 18 Dec, 2019 Encounter for supervision of other normal in first trimester Z34.81 [place] [address] [id number] [address] [place] [address] 05 Dec, 2019 [place] [address] [place] [address] Nov, [place] [address] [address] [id number] [address] [place] [address] Nov, Encounter for supervision of other normal in first trimester Z34.81 [facility] [address] [id number] [address] [place] [address] Apr, Jaw pain R68.84 and Open fra cture of tooth, initial encounter S02.5XXB [facility] [address] [id number] [address] [place] [address] Oct, Encounter for Depo-Provera c ontraception Z30.42 [facility] [address] [facility] [id number] [address] [place] [address] Aug, Encounter for Depo-Provera c ontraception Z30.42 [facility] [address] [facility] [id number] [address] [place] [address] Aug, [facility] [address] [facility] [id number] [address] [place] [address] Aug, control counseling Z30 .9 [facility] [address] [facility] [id number] [address] [place] [address] Jun, Sore throat J02.9 and Strep pharyngitis J02.0 [facility] [address] [place], [place] [id number] 57 Oct, Hematuria R31.9 [facility] [address] [facility] [id number] [address] [place] [address] Jul, [facility] [address] [facility] [id number] [address] [place] [address] Jul, Headache 784.0 and Back pain 724.5 [facility] [address] [facility] [id number] [address] [place] [address] Jun, Routine follow-up V24.2 [facility] [address] [facility] [id number] [address] [place] [address] Feb, [facility] [address] [facility] [id number] [address] [place] [phone] Feb, [facility] [address] [facility] [id number] [address] [place] [address] Dec, [facility] [address] [facility] [id number] [address] [place] [address] Dec, [facility] [address] [facility] [id number] [address] [place] [address] Jun, [facility] [address] [id number] [address] [place] [address], [place] [address] Jun, [facility] [address] [id number] [address] [place] [address], [place] [address] Jun, [facility] [address] [id number] [address] [place] [address], [place] [address] May, [facility] [address] [id number] [address] [place] [address], [place] [address] Apr, [facility] [address] [id number] [address] [place] [address], [place] [address] Apr, [facility] [address] [id number] [address] [place] [address], [place] [address] Apr, [facility] [address] [id number] [address] [place] [address], [place] [address] Apr, [facility] [address] [id number] [address] [place] [address], [place] [address] Apr, [facility] [address] [id number] [address] [place] [address], [place] [address] March, [facility] [address] [id number] [address] [place] [address], [place] [address] March, [facility] [address] [id number] [address] [place] [address], [place] [address] March, [facility] [address] [id number] [address] [place] [address], [place] [address] March, [facility] [address] [id number] [address] [place] [address], [place] [address] Feb, [facility] [address] [id number] [address] [place] [address], [place] [address] Feb, [facility] [address] [id number] [address] [place] [address], [place] [address] Feb, [facility] [address] [id number] [address] [place] [address] [address] 23 Jan, 2012 [facility] [address] [id number] [address] [place] [address] 16 Jan, 2012 [facility] [address] [id number] [address] [place] [address] 15 Jan, 2012 [facility] [address] [id number] [address] [place] [address] 14 Jan, 2012 [facility] [address] [id number] [address] [place] [address] 13 Jan, 2012 [facility] [address] [id number] [address] [place] [address] 13 Jan, 2012 [facility] [address] [id number] [address] [place] [address] 08 Oct, 2010 [facility] [address] [id number] [address] [place] [phone] Oct, [facility] [address] [id number] [address] [place] [phone] Aug, [facility] [address] [id number] [address] [place] [phone] Aug, [facility] [address] [id number] [address] [place] [phone] Jun, [facility] [address] [id number] [address] [place] [phone] 15 May, 2010 [facility] [address] [id number] [address] [place] [phone] 15 Apr, 2010 IMMUNIZATIONS No Known Immunizations SOCIAL HISTORY Never Assessed REASON FOR VISIT PLAN OF CARE VITAL SIGNS Height 63 in 2012-05-01 Weight 119 lbs 2012-05-01 Temperature 99.1 degrees Fahrenheit 2012-05-01 Heart Rate 92 bpm 2012-05-01 Respiratory Rate 16 2012-05-01 Blood pressure systolic 110 mmHg 2012-05-01 Blood pressure diastolic 58 mmHg 2012-05-01 MEDICATIONS Unknown Medications RESULTS No Results PROCEDURES Procedure Date Ordered Result Body Site URINE-NO MICRO May 01, 2012 INSTRUCTIONS MEDICATIONS ADMINISTERED No Known Medications MEDICAL (GENERAL) HISTORY Type Description Date Medical History Depression Medical History ADHD Hospitalization History childbirth x 3
--- OUTSIDE RECORDS SUMMARY | 2020-06-03 08:35 | XMS REPORT ---
Author Author Alfreda Cooper Doctor Organization [facility] Address Unknown Phone Unavailable Care Team Providers Care Clinical Medical Assistant Name Role Phone Migration, Doctor Unavailable Unavailable PROBLEMS Type Condition ICD9-CM Code [id number] Code Onset Dates Condition S tatus SNOMED Code Problem Supervision of other normal V22.1 Active 254493601 Problem Maternal anemia of mother, c omplicating , childbirth, or the puerperium, unspecified as to episode of care 648.20 Active 02714861 Problem Screening for diabetes mellitus V77.1 Active 391424715 Problem Screening examination for venereal disease V74.5 Active 333630854 Problem Routine gynecological examination V72.31 Active [id number] Problem Insufficient care V23.7 Act evelyn [id number] ALLERGIES No Information ENCOUNTERS Encounter Location Date Diagnosis [place] [address] [place] [id number] [address] [place] [phone] 18 Dec, 2019 Encounter for supervision of other normal in first trimester Z34.81 [place] [address] [place] [id number] [address] [place] [address] 05 Dec, 2019 [place] [address] [place] [id number] [address] [place] [address] 28 Nov, 2019 [place] [address] [place] [id number] [address] [place] [address] 13 Nov, 2019 Encounter for supervision of other normal in first trimester Z34.81 [facility] [address] [id number] [address] [place] [address] Apr, Jaw pain R68.84 and Open fra cture of tooth, initial encounter S02.5XXB [place] [address] [place] [id number] [address] [place] [address] Oct, Encounter for Depo-Provera c ontraception Z30.42 [place] [address] [facility] [id number] [address] [place] [phone] Aug, Encounter for Depo-Provera c ontraception Z30.42 [facility] [address] [id number] [address] [place] [phone] 06 Aug, 2016 [facility] [address] [facility] [id number] [address] [place] [phone] Aug, control counseling Z30 .9 [facility] [address] [facility] [id number] [address] [place] [phone] Jun, Sore throat J02.9 and Strep pharyngitis J02.0 [facility] [address] [place], [place] [id number] 57 Oct, Hematuria R31.9 [facility] [address] [facility] [id number] [address] [place] [phone] Jul, [facility] [address] [facility] [id number] [address] [place] [phone] Jul, Headache 784.0 and Back pain 724.5 [facility] [address] [id number] [address] [place] [phone] Jun, Routine follow-up V24.2 [facility] [address] [facility] [id number] [address] [place] [phone] Feb, [facility] [address] [facility] [id number] [address] [place] [phone] Feb, [facility] [address] [facility] [id number] [address] [place] [phone] Dec, [facility] [address] [facility] [id number] [address] [place] [phone] Dec, [facility] [address] [facility] [id number] [address] [place] [phone] Jun, [facility] [address] [facility] [id number] [address] [place] [address] Jun, [facility] [address] [id number] [address] [place] [address], [place] [address] Jun, [facility] [address] [id number] [address] [place] [address], [place] [address] May, [facility] [address] [id number] [address] [place] [address], [place] [address] Apr, [facility] [address] [id number] [address] [place] [address], [place] [address] Apr, [facility] [address] [id number] [address] [place] [address], [place] [address] Apr, [facility] [address] [id number] [address] [place] [address], [place] [address] Apr, [facility] [address] [id number] [address] [place] [address], [place] [address] Apr, [facility] [address] [id number] [address] [place] [address], [place] [address] March, [facility] [address] [id number] [address] [place] [address], [place] [address] March, [facility] [address] [id number] [address] [place] [address], [place] [address] March, [facility] [address] [id number] [address] [place] [address], [place] [address] March, [facility] [address] [id number] [address] [place] [address], [place] [address] Feb, [facility] [address] [id number] [address] [place] [address], [place] [address] Feb, [facility] [address] [id number] [address] [place] [address], [place] [address] Feb, [facility] [address] [id number] [address] [place] [address], [place] [address] Jan, [facility] [address] [id number] [address] [place] [phone] 16 Jan, 2012 [facility] [address] [id number] [address] [place] [phone] 15 Jan, 2012 [facility] [address] [id number] [address] [place] [address] 14 Jan, 2012 [facility] [address] [id number] [address] [place] [address] 13 Jan, 2012 [facility] [address] [id number] [address] [place] [address] 13 Jan, 2012 [facility] [address] [id number] [address] [place] [address] 08 Oct, 2010 [facility] [address] [id number] [address] [place] [address] Oct, [facility] [address] [id number] [address] [place] [phone] Aug, [facility] [address] [id number] [address] [place] [phone] Aug, [facility] [address] [id number] [address] [place] [phone] Jun, [facility] [address] [id number] [address] [place] [address] May, [facility] [address] [id number] [address] [place] [address] Apr, IMMUNIZATIONS No Known Immunizations SOCIAL HISTORY Never Assessed REASON FOR VISIT PLAN OF CARE VITAL SIGNS Height 63 in 2012-05-21 Weight 120 lbs 2012-05-21 Temperature 98.3 degrees Fahrenheit 2012-05-21 Heart Rate 92 bpm 2012-05-21 Respiratory Rate 16 2012-05-21 Blood pressure systolic 110 mmHg 2012-05-21 Blood pressure diastolic 70 mmHg 2012-05-21 MEDICATIONS Unknown Medications RESULTS No Results PROCEDURES Procedure Date Ordered Result Body Site URINE-NO MICRO May 21, 2012 INSTRUCTIONS MEDICATIONS ADMINISTERED No Known Medications MEDICAL (GENERAL) HISTORY Type Description Date Medical History Depression Medical History ADHD Hospitalization History childbirth x 3
--- OUTSIDE RECORDS SUMMARY | 2020-06-03 08:35 | XMS REPORT ---
Author Author Alfreda Gutiérrez [facility] Address [address] [place] [address] Care Team Providers Care Hedge Fund Trader Name Role Phone AFRICA Gutiérrez Unavailable PROBLEMS Type Condition ICD9-CM Code [id number] Code Onset Dates Condition S tatus SNOMED Code Problem Supervision of other normal V22.1 Active 564536995 Problem Maternal anemia of mother, c omplicating , childbirth, or the puerperium, unspecified as to episode of care 648.20 Active 35184206 Problem Screening for diabetes mellitus V77.1 Active 813247315 Problem Screening examination for venereal disease V74.5 Active 965285002 Problem Routine gynecological examination V72.31 Active 543098844085124 Problem Insufficient care V23.7 Act evelyn [id number] ALLERGIES No Information ENCOUNTERS Encounter Location Date Diagnosis [facility] [address] [place] [id number] [address] [place] [phone] Apr, Jaw pain R68.84 and Open fra cture of tooth, initial encounter S02.5XXB [facility] [address] [place] [address] [id number] [address] [place] [address] Oct, Encounter for Depo-Provera c ontraception Z30.42 [facility] [address] [place] [address] [id number] [address] [place] [address] Aug, Encounter for Depo-Provera c ontraception Z30.42 [facility] [address] [place] [id number] [address] [place] [phone] Aug, [facility] [address] [place] [id number] [address] [place] [phone] Aug, control counseling Z30 .9 [facility] [address] [place] [address] [id number] [address] [place] [phone] Jun, Sore throat J02.9 and Strep pharyngitis J02.0 [facility] [address] [place] [id number] 57 Oct, Hematuria R31.9 [facility] [address] [facility] [id number] [address] [place] [phone] Jul, [facility] [address] [id number] [address] [place] [phone] Jul, Headache 784.0 and Back pain 724.5 [facility] [address] [id number] [address] [place] [phone] Jun, Routine follow-up V24.2 [facility] [address] [facility] [id number] [address] [place] [phone] Feb, [facility] [address] [id number] [address] [place] [phone] Feb, [facility] [address] [id number] [address] [place] [phone] Dec, [facility] [address] [id number] [address] [place] [phone] Dec, [facility] [address] [facility] [id number] [address] [place] [phone] Jun, [facility] [address] [id number] [address] [place] [phone] Jun, [facility] [address] [id number] [address] [place] [phone] Jun, [facility] [address] [id number] [address] [place] [phone] May, [facility] [address] [facility] [id number] [address] [place] [phone] Apr, [facility] [address] [id number] [address] [place] [phone] Apr, [facility] [address] [id number] [address] [place] [address], [place] [address] 13 Apr, 2012 [facility] [address] [id number] [address] [place] [address], [place] [address] 07 Apr, 2012 [facility] [address] [id number] [address] [place] [address], [place] [address] 05 Apr, 2012 [facility] [address] [id number] [address] [place] [address], [place] [address] March, [facility] [address] [id number] [address] [place] [address], [place] [address] March, [facility] [address] [id number] [address] [place] [address], [place] [address] March, [facility] [address] [id number] [address] [place] [address], [place] [address] March, [facility] [address] [id number] [address] [place] [address], [place] [address] Feb, [facility] [address] [id number] [address] [place] [address], [place] [address] 04 Feb, 2012 [facility] [address] [id number] [address] [place] [address], [place] [address] 03 Feb, 2012 [facility] [address] [id number] [address] [place] [address], [place] [address] 23 Jan, 2012 [facility] [address] [id number] [address] [place] [address], [place] [address] 16 Jan, 2012 [facility] [address] [id number] [address] [place] [address], [place] [address] 15 Jan, 2012 [facility] [address] [id number] [address] [place] [address], [place] [address] 14 Jan, 2012 [facility] [place] [facility] [address] [id number] [address] [place] [address], [place] [address] 13 Jan, 2012 [facility] [address] [id number] [address] [place] [phone] 13 Jan, 2012 [facility] [address] [facility] [id number] [address] [place] [phone] Oct, [facility] [address] [facility] [id number] [address] [place] [phone] Oct, [facility] [address] [facility] [id number] [address] [place] [phone] Aug, [facility] [address] [facility] [id number] [address] [place] [phone] Aug, [facility] [address] [facility] [id number] [address] [place] [phone] Jun, [facility] [address] [facility] [id number] [address] [place] [phone] May, [facility] [address] [facility] [id number] [address] [place] [address] Apr, IMMUNIZATIONS No Known Immunizations SOCIAL HISTORY Never Assessed REASON FOR VISIT PLAN OF CARE VITAL SIGNS MEDICATIONS Unknown Medications RESULTS No Results PROCEDURES No Known procedures INSTRUCTIONS MEDICATIONS ADMINISTERED No Known Medications MEDICAL (GENERAL) HISTORY Type Description Date Medical History Depression Medical History ADHD Hospitalization History childbirth x 3
--- OUTSIDE RECORDS SUMMARY | 2020-06-03 08:35 | XMS REPORT ---
Author Author Alfreda DUDLEY Organization [facility] Address [address] [place] [address] Care Team Providers Care Truck Chauffeur Name Role Phone SURAJ DUDLEY Unavailable PROBLEMS Type Condition ICD9-CM Code FCH63-GI Code Onset Dates Condition S tatus SNOMED Code Problem Maternal anemia of mother, c omplicating , childbirth, or the puerperium, unspecified as to episode of care 648.20 Active 08465866 Problem Supervision of other normal V22.1 Active 352976601 Problem Screening examination for venereal disease V74.5 Active 497736450 Problem Screening for diabetes mellitus V77.1 Active 239061706 Problem Insufficient care V23.7 Act evelyn 7531746973488 Problem Routine gynecological examination V72.31 Active [id number] ALLERGIES No Known Allergies ENCOUNTERS Encounter Location Date Diagnosis [facility] [address] [address] Apr, Jaw pain R68.84 and Open fra cture of tooth, initial encounter S02.5XXB [facility] [address] [place] [id number] [address] [place] [address] Oct, Encounter for Depo-Provera c ontraception Z30.42 [facility] [address] [place] [address] [id number] [address] [place] [address] Aug, Encounter for Depo-Provera c ontraception Z30.42 [facility] [address] [place] [address] [id number] [address] [place] [address] Aug, [facility] [address] [place] [address] [id number] [address] [place] [address] Aug, control counseling Z30 .9 [facility] [address] [place] [id number] [place] [address] Jun, Sore throat J02.9 and Strep pharyngitis J02.0 [facility] [address] [place] [id number] 57 Oct, Hematuria R31.9 [facility] [address] [facility] [id number] [address] [place] [address] Jul, [facility] [address] [id number] [address] [place] [address] Jul, Headache 784.0 and Back pain 724.5 [facility] [address] [id number] [address] [place] [address] Jun, Routine follow-up V24.2 [facility] [address] [id number] [address] [place] [phone] Feb, [facility] [address] [id number] [address] [place] [address] Feb, [facility] [address] [id number] [address] [place] [phone] Dec, [facility] [address] [id number] [address] [place] [phone] Dec, [facility] [address] [facility] [id number] [address] [place] [address] Jun, [facility] [address] [id number] [address] [place] [phone] Jun, [facility] [address] [id number] [address] [place] [phone] Jun, [facility] [address] [id number] [address] [place] [phone] May, [facility] [address] [facility] [id number] [address] [place] [phone] Apr, [facility] [address] [id number] [address] [place] [phone] Apr, [facility] [address] [id number] [address] [place] [address], [place] [address] 13 Apr, 2012 [facility] [address] [id number] [address] [place] [address], [place] [address] 07 Apr, 2012 [facility] [address] [id number] [address] [place] [address], [place] [address] 05 Apr, 2012 [facility] [address] [id number] [address] [place] [address], [place] [address] March, [facility] [address] [id number] [address] [place] [address], [place] [address] March, [facility] [address] [id number] [address] [place] [address], [place] [address] March, [facility] [address] [id number] [address] [place] [address], [place] [address] March, [facility] [address] [id number] [address] [place] [address], [place] [address] Feb, [facility] [address] [id number] [address] [place] [address], [place] [address] 04 Feb, 2012 [facility] [address] [id number] [address] [place] [address], [place] [address] 03 Feb, 2012 [facility] [address] [id number] [address] [place] [address], [place] [address] 23 Jan, 2012 [facility] [address] [id number] [address] [place] [address], [place] [address] 16 Jan, 2012 [facility] [address] [id number] [address] [place] [address], [place] [address] 15 Jan, 2012 [facility] [address] [id number] [address] [place] [address], [place] [address] 14 Jan, 2012 [facility] [address] [id number] [address] [place] [address], [place] [address] 13 Jan, 2012 [facility] [address] [id number] [address] [place] [phone] Jan, [facility] [address] [id number] [address] [place] [phone] Oct, [facility] [address] [id number] [address] [place] [phone] Oct, [facility] [address] [facility] [id number] [address] [place] [phone] Aug, [facility] [address] [id number] [address] [place] [phone] Aug, [facility] [address] [facility] [id number] [address] [place] [phone] Jun, [facility] [address] [facility] [id number] [address] [place] [address] May, [facility] [address] [facility] [id number] [address] [place] [phone] Apr, IMMUNIZATIONS Vaccine Route Administration Date Status ROCEPHIN 1 GM (IM) IM Intramuscular May 13, 2018 Administered SOCIAL HISTORY Never Assessed REASON FOR VISIT right lower back dental pain since yesterday. pt has had a broken tooth for jordan hs...but just got bad yesterday. kori PLAN OF CARE Activity Details Follow Up get in to see Dental Reason: VITAL SIGNS Height 63 in 2018-05-13 Weight 102.0 lbs 2018-05-13 Temperature 98.2 degrees Fahrenheit 2018-05-13 Heart Rate 90 bpm 2018-05-13 Respiratory Rate 20 2018-05-13 BMI 18.07 kg/m2 2018-05-13 Blood pressure systolic 110 mmHg 2018-05-13 Blood pressure diastolic 68 mmHg 2018-05-13 MEDICATIONS Medication Instructions Dosage Frequency Start Date End Date Duration S tatus One Daily 27-0.8 MG Not-Taking Ferrous Sulfate 325 mg (65 mg iron) 1 tablet by Oral r oute 2 times per day Apr, Not-Taking Wellbutrin 100 MG Orally Twice a day 1 tablet 12h Not-Taking Amoxicillin 500 mg Orally twice a day 2 capsules 12h Apr, 201 8 5 May, 2018 10 day(s) Active Trazodone HCl 100 MG Orally Once a day 1 tablet at bedtime 24h Not-Taking Topamax 50 MG Orally at bedtime 1 tablet Jul, 30 day(s) Not-Taking RESULTS No Results PROCEDURES Procedure Date Ordered Result Body Site ROCEPHIN 1 GM (IM) May 13, 2018 THER/PROPH/DIAG INJ, SC/IM May 13, 2018 INSTRUCTIONS MEDICATIONS ADMINISTERED No Known Medications MEDICAL (GENERAL) HISTORY Type Description Date Medical History Depression Medical History ADHD Hospitalization History childbirth x 3
--- OUTSIDE RECORDS SUMMARY | 2020-06-03 08:35 | XMS REPORT ---
Author Author Alfreda PEREA [facility] Address [address] [place] [address] Care Team Providers Care Shovel Operator Name Role Phone DOMONIQUE PEREA Unavailable PROBLEMS Type Condition ICD9-CM Code [id number] Code Onset Dates Condition S tatus SNOMED Code Problem Supervision of other normal V22.1 Active 552892192 Problem Maternal anemia of mother, c omplicating , childbirth, or the puerperium, unspecified as to episode of care 648.20 Active 58452337 Problem Screening for diabetes mellitus V77.1 Active 138910279 Problem Screening examination for venereal disease V74.5 Active 335708740 Problem Routine gynecological examination V72.31 Active [id number] Problem Insufficient care V23.7 Act evelyn [id number] ALLERGIES No Information ENCOUNTERS Encounter Location Date Diagnosis [place] [address] [place] [id number] [address] [place] [phone] 18 Dec, 2019 Encounter for supervision of other normal in first trimester Z34.81 [place] [address] [place] [id number] [address] [place] [phone] Dec, [place] [id number] [place] [phone] Nov, [place] [address] [place] [id number] [address] [place] [phone] Nov, Encounter for supervision of other normal in first trimester Z34.81 [facility] [address] [place] [id number] [address] [place] [phone] Apr, Jaw pain R68.84 and Open fra cture of tooth, initial encounter S02.5XXB [facility] [address] [place] [id number] [address] [place] [phone] Oct, Encounter for Depo-Provera c ontraception Z30.42 [facility] [address] [facility] [place] [id number] [address] [place] [phone] Aug, Encounter for Depo-Provera c ontraception Z30.42 [facility] [address] [facility] [place] [id number] [address] [place] [phone] Aug, [facility] [address] [facility] [place] [id number] [address] [place] [phone] Aug, control counseling Z30 .9 [facility] [address] [facility] [place] [id number] [address] [place] [phone] Jun, Sore throat J02.9 and Strep pharyngitis J02.0 [facility] [address] [place], [place] [id number] [address] Oct, [address]31[address] [facility] [address] [facility] [place] [id number] [address] [place] [phone] Jul, [facility] [address] [facility] [place] [id number] [address] [place] [phone] Jul, Headache 784.[address] [facility] [address] [facility] [place] [id number] [address] [place] [phone] Jun, Routine follow-up V24.2 [facility] [address] [facility] [place] [id number] [address] [place] [phone] Feb, [facility] [address] [facility] [place] [id number] [address] [place] [phone] Feb, [facility] [address] [facility] [place] [id number] [address] [place] [phone] Dec, [facility] [address] [facility] [place] [id number] [address] [place] [phone] Dec, [facility] [address] [facility] [place] [id number] [address] [place] [phone] Jun, [facility] [address] [id number] [address] [place] [address], [place] [address] Jun, [facility] [address] [id number] [address] [place] [address], [place] [address] Jun, [facility] [address] [id number] [address] [place] [address], [place] [address] May, [facility] [address] [id number] [address] [place] [address], [place] [address] Apr, [facility] [address] [id number] [address] [place] [address], [place] [address] Apr, [facility] [address] [id number] [address] [place] [address], [place] [address] Apr, [facility] [address] [id number] [address] [place] [address], [place] [address] Apr, [facility] [address] [id number] [address] [place] [address], [place] [address] Apr, [facility] [address] [id number] [address] [place] [address], [place] [address] March, [facility] [address] [id number] [address] [place] [address], [place] [address] March, [facility] [address] [id number] [address] [place] [address], [place] [address] March, [facility] [address] [id number] [address] [place] [address], [place] [address] March, [facility] [address] [id number] [address] [place] [address], [place] [address] Feb, [facility] [address] [id number] [address] [place] [address], [place] [address] Feb, [facility] [address] [id number] [address] [place] [address], [place] [address] Feb, [facility] [address] [id number] [address] [place] [address] [address] [address], [address] [facility] [address] [id number] [address] [place] [phone] [address], [address] [facility] [address] [id number] [address] [place] [phone] [address], [address] [facility] [address] [id number] [address] [place] [phone] [address], [address] [facility] [address] [id number] [address] [place] [phone] [address], [address] [facility] [address] [id number] [address] [place] [phone] [address], [address] [facility] [address] [id number] [address] [place] [phone] [address], [address] [facility] [address] [id number] [address] [place] [phone] Oct, [facility] [address] [id number] [address] [place] [phone] Aug, [facility] [address] [id number] [address] [place] [phone] Aug, [facility] [address] [id number] [address] [place] [phone] Jun, [facility] [address] [id number] [address] [place] [phone] [address], [address] [facility] [address] [id number] [address] [place] [phone] 15 Apr, 2010 IMMUNIZATIONS No Known Immunizations SOCIAL HISTORY Never Assessed REASON FOR VISIT PLAN OF CARE VITAL SIGNS Height 63 in 2012-05-14 Weight 120.5 lbs 2012-05-14 Temperature 97.9 degrees Fahrenheit 2012-05-14 Heart Rate 80 bpm 2012-05-14 Respiratory Rate 18 2012-05-14 Blood pressure systolic 94 mmHg 2012-05-14 Blood pressure diastolic 62 mmHg 2012-05-14 MEDICATIONS Unknown Medications RESULTS No Results PROCEDURES Procedure Date Ordered Result Body Site URINE-NO MICRO May 14, 2012 INSTRUCTIONS MEDICATIONS ADMINISTERED No Known Medications MEDICAL (GENERAL) HISTORY Type Description Date Medical History Depression Medical History ADHD Hospitalization History childbirth x 3
--- OUTSIDE RECORDS SUMMARY | 2020-06-03 08:35 | XMS REPORT ---
Author Author Alfreda Robbins Organization [facility] Address [address] [place] [address] Care Team Providers Care Clay Mixer Name Role Phone HAYELE Robbins Unavailable PROBLEMS Type Condition ICD9-CM Code LXF50-QS Code Onset Dates Condition S tatus SNOMED Code Problem Supervision of other normal V22.1 Active 999392872 Problem Maternal anemia of mother, c omplicating , childbirth, or the puerperium, unspecified as to episode of care 648.20 Active 25989740 Problem Screening for diabetes mellitus V77.1 Active 492370619 Problem Screening examination for venereal disease V74.5 Active 025862270 Problem Routine gynecological examination V72.31 Active 259558183190207 Problem Insufficient care V23.7 Act evelyn [id number] ALLERGIES No Information ENCOUNTERS Encounter Location Date Diagnosis [facility] [address] [address] Apr, Jaw pain R68.84 and Open fra cture of tooth, initial encounter S02.5XXB [facility] [address] [place] [id number] [address] [place] [phone] Oct, Encounter for Depo-Provera c ontraception Z30.42 [facility] [address] [place] [id number] [address] [place] [phone] Aug, Encounter for Depo-Provera c ontraception Z30.42 [facility] [address] [place] [id number] [address] [place] [address] Aug, [facility] [address] [place] [id number] [address] [place] [phone] Aug, control counseling Z30 .9 [facility] [address] [place] [id number] [address] [place] [phone] Jun, Sore throat J02.9 and Strep pharyngitis J02.0 [facility] [address] [place] [id number] Oct, Hematuria R31.9 [facility] [address] [id number] [address] [place] [phone] Jul, [facility] [address] [id number] [address] [place] [phone] Jul, Headache 784.0 and Back pain 724.5 [facility] [address] [id number] [address] [place] [phone] Jun, Routine follow-up V24.2 [facility] [address] [id number] [address] [place] [phone] Feb, [facility] [address] [id number] [address] [place] [phone] Feb, [facility] [address] [id number] [address] [place] [phone] Dec, [facility] [address] [id number] [address] [place] [phone] Dec, [facility] [address] [id number] [address] [place] [phone] Jun, [facility] [address] [id number] [address] [place] [phone] Jun, [facility] [address] [id number] [address] [place] [phone] Jun, [facility] [address] [id number] [address] [place] [phone] May, [facility] [address] [id number] [address] [place] [phone] Apr, [facility] [address] [id number] [address] [place] [phone] Apr, [facility] [address] [id number] [address] [place] [address], [place] [id number] 13 Apr, 2012 [facility] [address] [id number] [address] [place] [address], [place] [id number] 07 Apr, 2012 [facility] [address] [id number] [address] [place] [address], [place] [id number] 05 Apr, 2012 [facility] [address] [id number] [address] [place] [address], [place] [id number] March, [facility] [address] [id number] [address] [place] [address], [place] [id number] March, [facility] [address] [id number] [address] [place] [address], [place] [id number] March, [facility] [address] [id number] [address] [place] [address], [place] [id number] March, [facility] [address] [id number] [address] [place] [address], [place] [id number] 25 Feb, 2012 [facility] [address] [id number] [address] [place] [address], [place] [id number] 04 Feb, 2012 [facility] [address] [id number] [address] [place] [address], [place] [id number] 03 Feb, 2012 [facility] [address] [id number] [address] [place] [address], [place] [id number] 23 Jan, 2012 [facility] [address] [id number] [address] [place] [address], [place] [id number] 16 Jan, 2012 [facility] [address] [id number] [address] [place] [address], [place] [id number] 15 Jan, 2012 [facility] [address] [id number] [address] [place] [address], [place] [id number] 14 Jan, 2012 [facility] [address] [id number] [address] [place] [address], [place] [id number] 13 Jan, 2012 [facility] [address] [id number] [address] [place] [id number] Jan, [facility] [address] [id number] [address] [place] [phone] Oct, [facility] [address] [facility] [id number] [address] [place] [phone] Oct, [facility] [address] [facility] [id number] [address] [place] [phone] Aug, [facility] [address] [facility] [id number] [address] [place] [phone] Aug, [facility] [address] [facility] [id number] [address] [place] [phone] Jun, [facility] [address] [facility] [id number] [address] [place] [phone] May, [facility] [address] [facility] [id number] [address] [place] [phone] Apr, IMMUNIZATIONS No Known Immunizations SOCIAL HISTORY Never Assessed REASON FOR VISIT PLAN OF CARE VITAL SIGNS MEDICATIONS Unknown Medications RESULTS No Results PROCEDURES No Known procedures INSTRUCTIONS MEDICATIONS ADMINISTERED No Known Medications MEDICAL (GENERAL) HISTORY Type Description Date Medical History Depression Medical History ADHD Hospitalization History childbirth x 3
--- OUTSIDE RECORDS SUMMARY | 2020-06-03 08:36 | XMS REPORT | Continuity of Care Document ---
Author Organization Unknown Address Unknown Phone Unavailable Allergies Active Description Code Type Severity Reaction Onset Reported/Identified Relationship to Patient Clinical Status Yes No Known Drug Allergies [id number] Drug Allergy Unknown N/A 07/09/2018 Medications There is no data. Problems Date Dx Coded Attending Type Code Diagnosis Diagnosed By 05/27/2008 DOMONIQUE PEREA DO V20.2 Well Child, Routine 08/14/2008 DOMONIQUE PEREA DO 784.0 Headache 08/14/2008 DOMONIQUE PEREA DO 787.01 Nausea With Vomiting 08/18/2008 DOMONIQUE PEREA DO 309.4 AD ADJ D/O W DIST OF EMOT 08/27/2008 DOMONIQUE PEREA DO 079.99 Viral Syndrome 09/09/2008 DOMONIQUE PEREA DO 789.00 Abdominal Pain Unspecified Site 03/12/2009 DOMONIQUE PEREA DO 787.03 Vomiting 01/21/2010 DOMONIQUE PEREA DO V72.42 Test Positive Result 01/25/2010 DOMONIQUE PEREA DO V22.0 Pc Normal First 03/14/2010 Ot 625.9 03/14/2010 Ot 646.83 08/02/2010 Ot 276.51 DEH YDRATION 08/02/2010 Ot 644.03 THR T KERON LABOR- ANTEPART 08/02/2010 Ot 646.83 PRE G COMPL NEC- ANTEPART 08/09/2010 Ot 644.13 08/09/2010 Ot 655.73 08/26/2010 Ot 644.13 09/02/2010 Ot 285.9 09/02/2010 Ot 645.11 09/02/2010 Ot 648.22 09/02/2010 Ot V27.0 10/21/2010 DOMONIQUE PEREA DO V24.2 Routine Follow-up 11/21/2010 Ot 599.0 11/21/2010 Ot 787.03 11/21/2010 Ot 787.91 01/30/2012 DOMONIQUE PEREA DO V23.7 , HIGH RISK W/ INSUFFICIENT CARE 02/02/2012 PEREA DOMONIQUE 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, 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 02/02/2012 DOMONIQUE PEREA DO V74.5 Std Screen 03/27/2012 DOMONIQUE PEREA DO 648.20 COMPL OF - ANEMIA 03/27/2012 BRIT ERNSTDOMONIQUE V77.1 Diabetes Screening 05/01/2012 PEREA DOMONIQUE V22.1 , NORMAL OTHER 05/24/2012 Ot 285.9 ANEM IA NOS 05/24/2012 Ot 648.22 ANE AMANUEL-DELIVERED W P/P 05/24/2012 Ot 660.41 RADHA ULDER DYSTOCIA-DELIV 05/24/2012 Ot 664.11 DEL W 2 DEG LACERAT-DEL 05/24/2012 Ot V06.1 [id number], COMBINED [ 05/24/2012 Ot V27.0 DELI JAMES-SINGLE LIVEBORN 05/13/2015 NAILA JACK DO Ot 650 NORMAL DELIVERY 05/13/2015 NAILA JACK DO Ot V06.1 [id number], COMBINED [ 05/13/2015 NAILA JACK DO Ot V23.7 INSUFFICIENT CARE 05/13/2015 NAILA JACK DO Ot V27.0 DELIVER-SINGLE LIVEBORN 05/17/2015 Ot V28.89 05/17/2015 Ot V22.0 05/17/2015 Ot V89.03 07/06/2015 Ot V28.89 07/06/2015 Ot V22.0 07/06/2015 Ot V89.03 02/05/2017 Ot V23.7 INSU FFICIENT CARE 02/05/2017 Ot V23.7 INSU FFICIENT CARE 02/05/2017 Ot V28.89 OT ER SPECIFIED SCREENING 05/21/2017 Ot V23.7 INSU FFICIENT CARE 05/21/2017 Ot V23.7 INSU FFICIENT CARE 05/21/2017 Ot V28.89 OT ER SPECIFIED SCREENING 06/14/2017 Ot V23.7 INSU FFICIENT CARE 06/14/2017 Ot V23.7 INSU FFICIENT CARE 06/14/2017 Ot V28.89 OT ER SPECIFIED SCREENING 07/09/2018 ARUNA DO, KATHY K Ot F17.200 NICOTINE DEPENDENCE, UNSPECIFIED, UNCOMP 07/09/2018 ARUNA DO, KATHY K Ot S61.412 A LACERATION WITHOUT FOREIGN BODY OF LEFT 07/09/2018 ARUNA DO, KATHY K Ot S61.432 A PUNCTURE WOUND W/O FOREIGN BODY OF LEFT 07/09/2018 ARUNA DO, KATHY K Ot W26.8XX A CONTACT WITH OTHER SHARP OBJECT(S), NEC, 07/10/2018 ARUNA DO, KATHY K Ot F17.200 NICOTINE DEPENDENCE, UNSPECIFIED, UNCOMP 07/10/2018 ARUNA DO, KATHY K Ot S61.412 A LACERATION WITHOUT FOREIGN BODY OF LEFT 07/10/2018 ARUNA DO, KATHY K Ot S61.432 A PUNCTURE WOUND W/O FOREIGN BODY OF LEFT 07/10/2018 ARUNA DO, KATHY K Ot W26.8XX A CONTACT WITH OTHER SHARP OBJECT(S), NEC, 07/10/2018 ARUNA DO, KATHY K Ot F17.200 NICOTINE DEPENDENCE, UNSPECIFIED, UNCOMP 07/10/2018 ARUNA DO, KATHY K Ot S61.412 A LACERATION WITHOUT FOREIGN BODY OF LEFT 07/10/2018 ARUNA DO, KATHY K Ot S61.432 A PUNCTURE WOUND W/O FOREIGN BODY OF LEFT 07/10/2018 ARUNA DO, KATHY Robison Ot W26.8XX A CONTACT WITH OTHER SHARP OBJECT(S), NEC, 05/24/2020 SEALS JSEÚS ERNST Ot O62.9 ABNORMALITY OF FORCES OF LABOR, UNSPECIF 05/24/2020 SEALS DOJESÚS Ot Z3A.3 9 39 WEEKS GESTATION OF Procedures Code Description Performed By Per formed On 75.69 REPA IR OB LACERATION NEC 05/23/2012 73.59 MANU AL ASSIST DELIV NEC 05/12/2015 Results Test Result Range Pap Lb, rfx HPV ASCU - 08/22/16 15:15 DIAGNOSIS: Comment Specimen adequacy: Comment Clinician provided ICD10: Comment Performed by: Comment Electronically signed by: Comment . . Pathologist provided ICD10: Comment Note: Comment . Comment Genital Culture, Routine - 08/22/16 15:1 5 Genital Culture, Routine Note SYPHILIS (RPR W/ REFLEX CONFIRMATION) - 12/01/19 16:03 RPR (DX) W/REFL TITER AND CONFIRMATORY TESTING NON-REACTIVE NON-REACTIVE RUBELLA IMMUNE STATUS - 12/01/19 16:03 RUBELLA ANTIBODY (IGG) 6.84 index NRG GC/CHLAMYDIA (SWAB OR URINE)-RAPID - 16:10 CHLAMYDIA TRACHOMATIS RNA, TMA NOT DETECTED NOT DETECTED NEISSERIA GONORRHOEAE RNA, TMA NOT DETECTED NOT DETECTED COMMENT NRG SUREPATH PAP RFX HPV mRNA E6/E7 - 16:10 CLINICAL INFORMATION: NRG LMP: NONE GIVEN NRG PREV. PAP: NONE GIVEN NRG PREV. BX: NONE GIVEN NRG SOURCE: Cervix NRG STATEMENT OF ADEQUACY: NRG INTERPRETATION/RESULT: NRG PROCESS EXCELLENCE MANAGER: NRG COMMENT NRG Blood type T Indirect antibody screen pa livia - 06/02/20 00:00 WRISTBAND NUMBER [id number] NRG ABO+Rh group OP NRG Blood group antibody screen NEGATIVE NR G Complete urinalysis with reflex to cultu re - 06/02/20 21:50 Urine color determination YELLOW NRG Urine clarity determination SL CLOUDY N RG Urine pH measurement by test strip 7.0 5-9 Specific gravity of urine by test strip 1.010 1.016-1.022 Urine protein assay by test strip, semi-quantitative NEGATIVE NEGATIVE Urine glucose detection by automated test strip NE GATIVE NEGATIVE Erythrocytes detection in urine sediment by light micr oscopy NEGATIVE NEGATIVE Urine ketones detection by automated test strip NE GATIVE NEGATIVE Urine nitrite detection by test strip NEGATIVE NEGATIVE Urine total bilirubin detection by test strip NEGA TIVE NEGATIVE Urine urobilinogen measurement by automated test strip (mass/volume) 0.2 mg/dL < = 1.0 Urine leukocyte esterase detection by dipstick NEG ATIVE NEGATIVE Automated urine sediment erythrocyte cou nt by microscopy (number/high power field) NONE NRG Automated urine sediment leukocyte count by microscopy (number/high power field) [HPF] NRG Bacteria detection in urine sediment by light microsco py TRACE NRG Squamous epithelial cells detection in u rine sediment by light microscopy 10-25 NRG Crystals detection in urine sediment by light microsco py NONE NRG Casts detection in urine sediment by light microscopy NONE NRG Mucus detection in urine sediment by light microscopy SMALL NRG Complete urinalysis with reflex to culture NO NRG Complete blood count (CBC) with automate d white blood cell (WBC) differential - 06/02/20 23:30 Blood leukocytes automated count (number/volume) 10.9 10*3/uL 4.3-11.0 Blood erythrocytes automated count (number/volume) 3.79 10*6/uL 4.35-5.85 Venous blood hemoglobin measurement (mass/volume) 10.9 g/dL 11.5-16.0 Blood hematocrit (volume fraction) 34 % 35-52 Automated erythrocyte mean corpuscular volume 89 [ foz_us] 80-99 Automated erythrocyte mean corpuscular h emoglobin (mass per erythrocyte) 29 pg 25-34 Automated erythrocyte mean corpuscular h emoglobin concentration measurement (mass/volume) 32 g/dL 32-36 Automated erythrocyte distribution width ratio 14. 8 % 10.0- 14.5 Automated blood platelet count (count/volume) 216 10*3/uL 130-400 Automated blood platelet mean volume measurement 13.1 [foz_us] 7.4-10.4 Automated blood neutrophils/100 leukocytes 61 % 42-75 Automated blood lymphocytes/100 leukocytes 29 % 12-44 Blood monocytes/100 leukocytes 8 % 0-12 Automated blood eosinophils/100 leukocytes 1 % 0-10 Automated blood basophils/100 leukocytes 0 % 0-10 Blood neutrophils automated count (number/volume) 6.7 10*3 1.8-7.8 Blood lymphocytes automated count (number/volume) 3.2 10*3 1.0-4.0 Blood monocytes automated count (number/volume) 0. 9 10*3 0.0-1.0 Automated eosinophil count 0.1 10*3/uL 0 .0-0.3 Automated blood basophil count (count/volume) 0.0 10*3/uL 0.0-0.1 Encounters ACCT No. Visit Date/Time Discharge Status Pt. Type Provider Facility Loc./Unit Complaint [id number] 06/26/2012 15:11:00 06/26/2012 23:59: 59 CLS Outpatient BRIT ERNST DOMONIQUE Robison [id number] 08/26/2016 13:05:00 Document Registration [id number] 08/26/2016 13:05:00 Document Registration [id number] 12/01/2019 14:45:00 12/01/2019 23:59:5 9 CLS Outpatient [facility] [id number] 12/01/2019 14:45:00 Document Registration [id number] 05/23/2020 05:09:00 020 06:56:00 DIS Outpatient JESÚS SCHWARTZ DO Via [facility] WSo CONTRACTIONS [id number] 07/08/2018 23:47:00 018 01:49:00 DIS Emergency ARUNAKATHY Granados DO Vi [facility] ER L HAND PAIN [id number] 05/12/2015 00:00:00 015 19:00:00 DIS Inpatient NAILA JACK DO [facility] LDRP LABOR [id number] 06/02/2020 22:29:00 Document Registration [id number] 05/17/2015 15:39:00 Document Registration [id number] 05/17/2015 15:39:00 Document Registration [id number] 05/17/2015 15:39:00 Document Registration [id number] 05/17/2015 15:39:00 Document Registration [id number] 05/17/2015 15:39:00 Document Registration [id number] 05/23/2012 17:55:00 Document Registration [id number] 03/21/2012 10:50:00 Document Registration [id number] 02/05/2012 11:20:00 Document Registration [id number] 11/20/2010 22:58:00 Document Registration [id number] 08/31/2010 17:50:00 Document Registration [id number] 08/09/2010 19:35:00 Document Registration [id number] 01/28/2010 09:42:00 Document Registration
--- NOTE | 2020-06-03 09:55 | Physician Query-Final Dx ---
MASOUD RUIZ 06/03/20 0955: Final Diagnosis Give Final Diagnosis Please give Final Diagnosis JESÚS SCHWARTZ DO 06/03/20 1907: Final Diagnosis Give Final Diagnosis Intrauterine at 39 6/7 weeks 2. Contractions 3. Poor Care 4. Dehydration MASOUD RUIZ Jun 03, 2020 09:55 JESÚS SCHWARTZ DO Jun 03, 2020 19:07
[2020-06-03] MEDS ORDERED: OXYTOCIN PRE-MIX DRIP 500 ML IV SCH (20:52)
[2020-06-03] MEDS ORDERED: BENZOCAINE/MENTHOL (DERMOPLAST) 60 ML CAN TP PRN (21:00)
[2020-06-03] MEDS ORDERED: WITCH HAZEL(TUCKS) 40 EA JAR TOP PRN (21:00)
[2020-06-03] MEDS ORDERED: TETANUS,DIPTH,PERTUSS P/F (BOOSTRIX) 0.5 ML VIAL IM ONE (21:00)
[2020-06-03] MEDS ORDERED: MEASLES,MUMPS,RUBELLA 1 EA INJ SQ ONE (21:00)
[2020-06-03] MEDS ORDERED: DIBUCAINE (NUPERCAINAL) 1% OINT 30 GM TOP PRN (21:00)
[2020-06-03] MEDS ORDERED: DOCUSATE SODIUM 100 MG (COLACE) CAP PO SCH (21:00)
[2020-06-03] MEDS ORDERED: CATHETER FLUSH 10 ML SYR IV SCH (22:00)
[2020-06-03] MEDS ORDERED: IBUPROFEN 800 MG (MOTRIN) TAB PO SCH (22:00)
[2020-06-04] MEDS ORDERED: ACETAMINOPHEN 500 MG TAB (TYLENOL) PO SCH
[2020-06-04 05:42] LABS: BASOPHILS % (AUTO) 0 % (0-10); EOSINOPHILS # (AUTO) 0.1 10^3/uL (0.0-0.3); EOSINOPHILS % (AUTO) 1 % (0-10); HEMATOCRIT 29 % (35-52); HEMOGLOBIN 9.6 G/DL (11.5-16.0); LYMPHOCYTES # (AUTO) 2.2 X 10^3 (1.0-4.0); LYMPHOCYTES % (AUTO) 17 % (12-44); MEAN CORPUSCULAR HEMOGLOBIN 29 PG (25-34); MEAN CORPUSCULAR HGB CONC 33 G/DL (32-36); MEAN CORPUSCULAR VOLUME 88 FL (80-99); MEAN PLATELET VOLUME 12.3 FL (7.4-10.4); MONOCYTES # (AUTO) 0.8 X 10^3 (0.0-1.0); MONOCYTES % (AUTO) 6 % (0-12); NEUTROPHILS # (AUTO) 9.6 X 10^3 (1.8-7.8); NEUTROPHILS % (AUTO) 76 % (42-75); PLATELET COUNT 176 10^3/uL (130-400); RED CELL DISTRIBUTION WIDTH 14.7 % (10.0-14.5); WHITE BLOOD COUNT 12.6 10^3/uL (4.3-11.0)
[2020-06-04] MEDS ORDERED: OXYC5TAB96 PO (06:15)
[2020-06-04] MEDS ORDERED: ACET-93 PO (06:15)
[2020-06-04] MEDS ORDERED: DCS100C PO (06:15)
[2020-06-04] MEDS ORDERED: IBUP-1780 PO (06:15)
[2020-06-04] MEDS ORDERED: PRENATAL VITAMIN 1 EA TAB PO SCH (07:00)
== END 2020-06-03 07:10 | disposition home or self-care (01) ==
LOC: WSo 21:42 → LDRP 21:43 → WSo 21:50 → LDRP 21:50
PROVIDERS: ADMIT Obstetrics & Gynecology; ATTEND Obstetrics & Gynecology
DX: O36.8191 Decreased fetal movements, unspecified trimester, fetus 1 (principal)
CPT/HCPCS: 81000; 85025 ×2; 86762; 86780; 86850; 86900; 86901; 87340; 87491; 87591; 96360; 96361; G0378; G0379; 36415; 99211

== ENCOUNTER 2020-06-03 10:29 | Inpatient (IN) | payer MEDICAID ==
[~2020-06-03] VITALS: Ht 160 cm; Wt 59.9 kg
[2020-06-03] VITALS (76 sets, daily range): BP systolic 72–144; BP diastolic 37–91
--- NOTE | 2020-06-03 10:35 | NUR ---
TOMAS OGDEN presented to unit via AMBULATORY from HOME, accompanied by S/O FOR INDUCTION OF LABOR. TOMAS OGDEN weighed, gowned, voided, and to bed. EFHM and TOCO applied, VS taken. TOMAS OGDEN oriented to bed controls, call light, TV, heat, and A/C controls.
[2020-06-03] MEDS ORDERED: D5 LR IV SOLUTION 1,000 ML IV SCH (11:20)
[2020-06-03 12:33] LABS: BASOPHILS % (AUTO) 0 % (0-10); EOSINOPHILS # (AUTO) 0.1 10^3/uL (0.0-0.3); EOSINOPHILS % (AUTO) 1 % (0-10); HEMATOCRIT 31 % (35-52); LYMPHOCYTES # (AUTO) 2.3 X 10^3 (1.0-4.0); LYMPHOCYTES % (AUTO) 26 % (12-44); MEAN CORPUSCULAR HEMOGLOBIN 28 PG (25-34); MEAN CORPUSCULAR HGB CONC 33 G/DL (32-36); MEAN CORPUSCULAR VOLUME 88 FL (80-99); MEAN PLATELET VOLUME 12.9 FL (7.4-10.4); MONOCYTES # (AUTO) 0.6 X 10^3 (0.0-1.0); MONOCYTES % (AUTO) 7 % (0-12); NEUTROPHILS # (AUTO) 5.9 X 10^3 (1.8-7.8); NEUTROPHILS % (AUTO) 66 % (42-75); PLATELET COUNT 190 10^3/uL (130-400); RED CELL DISTRIBUTION WIDTH 14.6 % (10.0-14.5); WHITE BLOOD COUNT 8.9 10^3/uL (4.3-11.0)
[2020-06-03] MEDS ORDERED: OXYTOCIN PRE-MIX DRIP 500 ML IV SCH ×2 (12:34→20:59)
[2020-06-03] MEDS ORDERED: fentaNYL 2 mcg/ml BUPIVA 0.125 100 ML ONE (13:34)
--- NOTE | 2020-06-03 13:51 | NUR ---
1351 Nikole LOPEZ CRNA here for epidural placement. Procedure explained, consent reviewed and signed by anesthesia. Questions answered to patient's satisfaction. Time out taken to verify correct patient/procedure. 1358 Patient up to side of bed, assisted into sitting position. 1401 Betadine prep done x3 and sterile drape applied. 1404 Local done, see anesthesia record. 1407 Test dose given, see anesthesia record for drug and dosage. 1409 Test dose #2 given, see anesthesia record for drug and dosage. Epidural catheter secured in place. Epidural placement complete. 1412 Assisted back into bed, monitors adjusted. Epidural dosed, see anesthesia record. Epidural infusing @12cc/hr stated per pump; see EMAR for further. Patient tolerated procedure well.
[2020-06-03] MEDS ORDERED: CATHETER FLUSH 10 ML SYR IV SCH ×2 (14:00→22:00)
[2020-06-03] MEDS ORDERED: LACTATED RINGERS 1,000 ML IV SCH (14:19)
[2020-06-03] MEDS ORDERED: NALOXONE 0.4 MG/ML 1 ML (NARCAN) VIAL IV PRN ×2 (14:30)
[2020-06-03] MEDS ORDERED: METOCLOPRAMIDE INJ 10 MG/2 ML (REGLAN) IV PRN (14:30)
[2020-06-03] MEDS ORDERED: ONDANSETRON 4 MG/2 ML (SDV) Z0FRAN IV PRN (14:30)
[2020-06-03] MEDS ORDERED: diphenhydrAMINE 50 MG/ML INJ (BENADRYL) IV PRN (14:30)
[2020-06-03] MEDS ORDERED: EPIDURAL (fentaNYL 2 MCG/ML BUPIVA 0.125%)100 ML BAG EPI SCH (14:30)
[2020-06-03] MEDS ORDERED: AMPICILLIN FOR IV USE 2,000 MG in WATER (STERILE) FOR INJECTION 14.8 ML IV SCH (14:32)
[2020-06-03] MEDS ORDERED: AMPICILLIN FOR IV USE 2,000 MG VIAL ONE (14:34)
[2020-06-03] MEDS ORDERED: WATER (STERILE) FOR INJECTION 20 ML ONE (14:35)
[2020-06-03] MEDS ORDERED: AMPICILLIN FOR IV USE 1,000 MG in WATER (STERILE) FOR INJECTION 7.4 ML IV SCH (18:45)
--- NOTE | 2020-06-03 19:04 | History & Physical-OB/GYN ---
History of Present Illness History of Present Illness Reason for visit/HPI Ms. Tierney, 39 6/7 weeks, presents to Labor & Delivery for Pitocin Induction of Labor. Ms. Tierney has had very poor Care (one visit) and an unknown GBS status. Date of Admission Jun 03, 2020 at 10:29 Date Seen by a Provider: Jun 03, 2020 Time Seen by a Provider: 18:50 I consulted on this patient on 06/03/20 18:59 Attending Physician Ancelmo Strickland DO Admitting Physician Ancelmo Strickland DO Consult Allergies and Home Medications Allergies Coded Allergies: No Known Drug Allergies (Verified , 06/02/20) Patient Home Medication List Home Medication List Reviewed: Yes Past Qguactd-Akebhi-Gnghwv Hx Patient Social History Number of Children: 3 Number of living children: 3 Alcohol Use: Denies Use Recreational Drug Use: No Smoking Status: Current Everyday Smoker Type Used: Cigarettes 2nd Hand Smoke Exposure: Yes Physical Abuse Screen: No Sexual Abuse: No Recent Foreign Travel: No Contact w/other who traveled: No Recent Hopitalizations: No Immunizations Up To Date Tetanus Booster (TDap): Unknown Pediatric: Yes Seasonal Allergies Seasonal Allergies: No Surgeries No Respiratory No Cardiovascular No Neurological No Reproductive System Expected Date of Delivery: Jun 03, 2020 Hx Reproductive Disorders: No Sexually Transmitted Disease: No HIV/AIDS: No Gastrointestinal No Musculoskeletal No Endocrine History of Endocrine Disorders: No HEENT History of HEENT Disorders: Yes (contacts/glasses) Cancer No Psychosocial History of Psychiatric Problem: No Integumentary History of Skin or Integumenta: No Blood Transfusions History of Blood Disorders: No Adverse Reaction to a Blood Tr: No Family Medical History Family Hx: Cardiovascular disease 19 FATHER Myocardial infarction 19 FATHER Review of Systems Constitutional: see HPI Physical Exam Physical Exam Vital Signs Vital Signs Date Time Temp Pulse Resp B/P (MAP) Pulse Ox O2 Delivery O2 Flow Rate FiO2 06/03/20 17:10 68 18 107/76 (86) 98 Room Air 06/03/20 17:05 75 18 105/73 (84) 99 Room Air 06/03/20 17:00 71 18 106/74 (85) 99 Room Air 06/03/20 16:55 66 18 103/74 (84) 99 Room Air 06/03/20 16:50 67 18 102/74 (83) 100 Room Air 06/03/20 16:45 65 18 106/75 (85) 100 Room Air 06/03/20 16:40 61 18 117/77 (90) 100 Room Air 06/03/20 16:35 69 18 107/76 (86) 100 Room Air 06/03/20 16:31 74 18 105/71 (82) 98 Room Air 06/03/20 16:27 69 18 107/68 (81) Room Air 06/03/20 16:25 35.0 64 18 100/65 (77) 97 Room Air 06/03/20 16:18 78 18 85/59 (68) 91 Room Air 06/03/20 16:12 78 18 101/65 (77) Room Air 06/03/20 16:08 72 18 99/67 (78) Room Air 06/03/20 16:05 84 18 92/66 (75) 100 Room Air 06/03/20 15:59 84 18 113/77 (89) 99 Room Air 06/03/20 15:54 63 18 101/70 (80) 100 Room Air 06/03/20 15:50 73 18 97/66 (76) 99 Room Air 06/03/20 15:44 70 18 108/74 (85) 100 Room Air 06/03/20 15:38 77 18 103/72 (82) 100 Room Air 06/03/20 15:34 72 18 100/60 (73) 99 Room Air 06/03/20 15:30 85 18 123/60 (81) 98 Room Air 06/03/20 15:25 76 18 112/77 (89) 99 Room Air 06/03/20 15:18 70 18 101/69 (80) 100 Room Air 06/03/20 15:15 69 18 106/74 (85) 100 Room Air 06/03/20 15:08 75 18 106/70 (82) 100 Room Air 06/03/20 15:03 72 18 100/67 (78) 99 Room Air 06/03/20 14:59 76 18 110/76 (87) 99 Room Air 06/03/20 14:53 62 18 108/67 (81) Room Air 06/03/20 14:52 67 18 108/65 (79) Room Air 06/03/20 14:48 65 18 72/37 (49) Room Air 06/03/20 14:45 68 18 88/44 (59) 99 Room Air 06/03/20 14:41 72 18 91/55 (67) 99 Room Air 06/03/20 14:38 61 18 99/56 (70) Room Air 06/03/20 14:34 75 18 105/66 (79) 99 Room Air 06/03/20 14:27 36.8 78 18 106/71 (83) Room Air 06/03/20 14:24 81 18 104/69 (81) 98 Room Air 06/03/20 14:21 85 18 93/55 (68) 98 Room Air 06/03/20 14:18 90 18 93/58 (70) Room Air 06/03/20 14:15 91 18 115/75 (88) 99 Room Air 06/03/20 14:12 87 18 117/76 (90) Room Air 06/03/20 14:09 87 18 125/72 (89) 99 Room Air 06/03/20 14:06 99 18 127/83 (98) 98 Room Air 06/03/20 14:03 88 18 120/79 (93) Room Air 06/03/20 14:00 87 18 133/91 (105) 98 Room Air 06/03/20 13:43 63 18 110/65 (80) Room Air 06/03/20 13:28 36.6 73 18 122/61 (81) Room Air 06/03/20 11:06 36.8 90 18 109/75 (86) 98 Room Air Capillary Refill : Labs Laboratory Tests 06/03/20 12:20: White Blood Count 8.9, Red Blood Count 3.52L, Hemoglobin 10.0L, Hematocrit 31L, Mean Corpuscular Volume 88, Mean Corpuscular Hemoglobin 28, Mean Corpuscular Hemoglobin Concent 33, Red Cell Distribution Width 14.6H, Platelet Count 190, Mean Platelet Volume 12.9H, Neutrophils (%) (Auto) 66, Lymphocytes (%) (Auto) 26, Monocytes (%) (Auto) 7, Eosinophils (%) (Auto) 1, Basophils (%) (Auto) 0, Neutrophils # (Auto) 5.9, Lymphocytes # (Auto) 2.3, Monocytes # (Auto) 0.6, Eosinophils # (Auto) 0.1, Basophils # (Auto) 0.0 General Appearance: No Apparent Distress, WD/WN Respiratory: Chest Non Tender, Lungs Clear, Normal Breath Sounds Cardiovascular: Regular Rate, Rhythm, No Murmur Abdominal: normal bowel sounds, non tender, soft Labia: WNL Vagina: WNL Cervix: WNL Cervix OS: open (Cervix 6 cm/80%/-2 Vertex/Intact) Uterus: WNL, Enlarged (Gravid) Extremity: Normal Inspection, Non Tender, No Calf Tenderness Assessment/Plan Assessment and Plan Assessment: Intrauterine at 39 6/7 weeks 2. Poor Care 3. Unknown GBS Status Plan: Pitocin Induction of Labor. Artificial Rupture of Membranes. Epidural for antepartum pain management. IV antibiotics (Ampicillin). Expectant vaginal delivery Admission Diagnosis Admission Status: Inpatient Order (span 2 midnights) Reason for Inpatient Admission: Pitocin Induction of Labor Clinical Quality Measures DVT/VTE Risk/Contraindication: Risk Factor Score Per Nursin RFS Level Per Nursing on Admit: 2=Moderate ANCELMO STRICKLAND DO Jun 03, 2020 19:04
--- NOTE | 2020-06-03 20:35 | NUR ---
OF MALE OVER INTACT PERINEUM. TO MOM'S ABD AND TO SKIN TO SKIN ON PT'S CHEST AFTER CORD CUT. MOM VERY ANXIOUS AND IS WORRIED THAT THE DOCTOR OR NURSE IS GOING TO DROP THE BABY. PT GIVEN MUCH REASSURANCE.
--- NOTE | 2020-06-03 20:55 | NUR ---
ATTEMPTED ASSIST WITH . PT ASKED ME TO STOP TOUCHING THE 'S HEAD AND TO STOP TRYING TO GET HIM TO BREASTFEED, BECAUSE HE DOESN'T WANT TO. STRESSED THE IMPORTANCE OF INFANT FEEDING IN THE FIRST HOUR OF LIFE. ALSO POINTED OUT INFANT'S CONSTANT ROOTING. PT STATES THAT SHE HASN'T EATEN ALL DAY AND IS MORE CONCERNED AT THIS TIME WITH HER EATING.
[2020-06-03] MEDS: DOCUSATE SODIUM 100 MG (COLACE) CAP PO SCH (21:00)
[2020-06-03] MEDS ORDERED: WITCH HAZEL(TUCKS) 40 EA JAR TOP PRN (21:00)
[2020-06-03] MEDS ORDERED: BENZOCAINE/MENTHOL (DERMOPLAST) 60 ML CAN TP PRN (21:00)
[2020-06-03] MEDS ORDERED: DIBUCAINE (NUPERCAINAL) 1% OINT 30 GM TOP PRN (21:00)
--- NOTE | 2020-06-03 21:06 | OB Labor & Delivery Record ---
Vag Delivery Note Vag Delivery Note Date of Delivery: 06/03/20 Preoperative Diagnosis: Alfreda Tierney is a (29 /Para / ,Gestational Age (wks)40with [Poor Care (one office visit), Unknown GBS Status] Postoperative Diagnosis: Same Surgeon: JESÚS SCHWARTZ Heel Packer: [] Anesthesia: Epidural] Delivery Type: [Normal Spontaneous Vaginal Delivery] Findings: [Male in cephalic presentation] Viable [Male] infant, apgars [], weight [7 lb 12 oz] Lacerations: None Intact placenta with 3 vessel cord. No nuchal cord, body cord or shoulder dystocia Estimated Blood Loss: [300] ml Complications: None Condition: Stable Description of Procedure: The patient is a 29 year old female who presented [for Pitocin Induction of Labor]. She was admitted and informed consent was obtained. Her labor course was unremarkable. She progressed to complete dilatation and began to push. She was then set up for delivery. The infant's head was delivered atraumatically in the [OA] position. The shoulders and remainder of the 's body were then delivered without difficulty. Upon delivery, the head was held below the level of the perineum and the mouth and nares were bulb suctioned. The cord was doubly clamped and cut and the was handed off to the pediatric staff where NRP protocol was followed. An intact placenta with 3-vessel cord delivered via Davion and there was found to be minimal bleeding.~ Vigorous fundal massage was performed and the fundus was found to be firm. IV oxytocin was given. Examination of the vagina and perineum revealed no lacerations. Following the delivery, sponge, instrument and needle counts were correct. Mom and baby were both in stable condition in the labor suite. Vitals - Labs Vital Signs - I&O Vital Signs Date Time Temp Pulse Resp B/P (MAP) Pulse Ox O2 Delivery O2 Flow Rate FiO2 06/03/20 19:00 35.8 68 18 102/65 (77) 100 Room Air 06/03/20 18:55 75 18 114/74 (87) 100 Room Air 06/03/20 18:50 88 18 120/67 (84) 99 Room Air 06/03/20 18:45 78 18 112/78 (89) 99 Room Air 06/03/20 18:40 78 18 104/73 (83) 100 Room Air 06/03/20 18:35 72 18 101/68 (79) 100 Room Air 06/03/20 18:30 75 18 113/74 (87) 100 Room Air 06/03/20 18:25 74 18 107/73 (84) 100 Room Air 06/03/20 18:20 62 18 103/72 (82) 100 Room Air 06/03/20 18:15 84 18 105/73 (84) 99 Room Air 06/03/20 18:05 72 18 119/72 (88) 99 Room Air 06/03/20 18:00 68 18 108/75 (86) 100 Room Air 06/03/20 17:55 90 18 112/75 (87) 99 Room Air 06/03/20 17:50 82 18 104/73 (83) 99 Room Air 06/03/20 17:45 65 18 107/71 (83) 100 Room Air 06/03/20 17:40 77 18 108/71 (83) 100 Room Air 06/03/20 17:35 66 18 122/73 (89) 100 Room Air 06/03/20 17:30 63 18 110/75 (87) 100 Room Air 06/03/20 17:25 65 18 112/73 (86) 100 Room Air 06/03/20 17:20 66 18 118/78 (91) 100 Room Air 06/03/20 17:10 68 18 107/76 (86) 98 Room Air 06/03/20 17:05 75 18 105/73 (84) 99 Room Air 06/03/20 17:00 71 18 106/74 (85) 99 Room Air 06/03/20 16:55 66 18 103/74 (84) 99 Room Air 06/03/20 16:50 67 18 102/74 (83) 100 Room Air 06/03/20 16:45 65 18 106/75 (85) 100 Room Air 06/03/20 16:40 61 18 117/77 (90) 100 Room Air 06/03/20 16:35 69 18 107/76 (86) 100 Room Air 06/03/20 16:31 74 18 105/71 (82) 98 Room Air 06/03/20 16:27 69 18 107/68 (81) Room Air 06/03/20 16:25 35.0 64 18 100/65 (77) 97 Room Air 06/03/20 16:18 78 18 85/59 (68) 91 Room Air 06/03/20 16:12 78 18 101/65 (77) Room Air 06/03/20 16:08 72 18 99/67 (78) Room Air 06/03/20 16:05 84 18 92/66 (75) 100 Room Air 06/03/20 15:59 84 18 113/77 (89) 99 Room Air 06/03/20 15:54 63 18 101/70 (80) 100 Room Air 06/03/20 15:50 73 18 97/66 (76) 99 Room Air 06/03/20 15:44 70 18 108/74 (85) 100 Room Air 06/03/20 15:38 77 18 103/72 (82) 100 Room Air 06/03/20 15:34 72 18 100/60 (73) 99 Room Air 06/03/20 15:30 85 18 123/60 (81) 98 Room Air 06/03/20 15:25 76 18 112/77 (89) 99 Room Air 06/03/20 15:18 70 18 101/69 (80) 100 Room Air 06/03/20 15:15 69 18 106/74 (85) 100 Room Air 06/03/20 15:08 75 18 106/70 (82) 100 Room Air 06/03/20 15:03 72 18 100/67 (78) 99 Room Air 06/03/20 14:59 76 18 110/76 (87) 99 Room Air 06/03/20 14:53 62 18 108/67 (81) Room Air 06/03/20 14:52 67 18 108/65 (79) Room Air 06/03/20 14:48 65 18 72/37 (49) Room Air 06/03/20 14:45 68 18 88/44 (59) 99 Room Air 06/03/20 14:41 72 18 91/55 (67) 99 Room Air 06/03/20 14:38 61 18 99/56 (70) Room Air 06/03/20 14:34 75 18 105/66 (79) 99 Room Air 06/03/20 14:27 36.8 78 18 106/71 (83) Room Air 06/03/20 14:24 81 18 104/69 (81) 98 Room Air 06/03/20 14:21 85 18 93/55 (68) 98 Room Air 06/03/20 14:18 90 18 93/58 (70) Room Air 06/03/20 14:15 91 18 115/75 (88) 99 Room Air 06/03/20 14:12 87 18 117/76 (90) Room Air 06/03/20 14:09 87 18 125/72 (89) 99 Room Air 06/03/20 14:06 99 18 127/83 (98) 98 Room Air 06/03/20 14:03 88 18 120/79 (93) Room Air 06/03/20 14:00 87 18 133/91 (105) 98 Room Air 06/03/20 13:43 63 18 110/65 (80) Room Air 06/03/20 13:28 36.6 73 18 122/61 (81) Room Air 06/03/20 11:06 36.8 90 18 109/75 (86) 98 Room Air Labs Laboratory Tests 06/03/20 12:20: White Blood Count 8.9, Red Blood Count 3.52L, Hemoglobin 10.0L, Hematocrit 31L, Mean Corpuscular Volume 88, Mean Corpuscular Hemoglobin 28, Mean Corpuscular Hemoglobin Concent 33, Red Cell Distribution Width 14.6H, Platelet Count 190, Mean Platelet Volume 12.9H, Neutrophils (%) (Auto) 66, Lymphocytes (%) (Auto) 26, Monocytes (%) (Auto) 7, Eosinophils (%) (Auto) 1, Basophils (%) (Auto) 0, Neutrophils # (Auto) 5.9, Lymphocytes # (Auto) 2.3, Monocytes # (Auto) 0.6, Eosinophils # (Auto) 0.1, Basophils # (Auto) 0.0 JESÚS SCHWARTZ DO Jun 03, 2020 21:06
--- NOTE | 2020-06-03 21:40 | NUR ---
S/O REPORTS INFANT AT THIS TIME.
[2020-06-03] MEDS: IBUPROFEN 800 MG (MOTRIN) TAB PO SCH (22:00)
--- NOTE | 2020-06-03 23:15 | NUR ---
PT UP TO BATHROOM WITH NO DIFFICULTY. VOIDED AND PERICARE DONE. PT REQUESTS BE TAKEN TO NSY SO SHE MAY REST.
[2020-06-04 01:45] VITALS: BP 110/70
[2020-06-04] MEDS ORDERED: DCS100C PO (06:15)
[2020-06-04] MEDS ORDERED: IBUP-1780 PO (06:15)
[2020-06-04] MEDS ORDERED: ACET-93 PO (06:15)
[2020-06-04] MEDS ORDERED: OXYC5TAB96 PO (06:15)
--- NOTE | 2020-06-04 06:21 | Discharge Summary ---
Diagnosis/Chief Complaint Date of Admission Jun 03, 2020 at 10:29 Date of Discharge June 04, 2020 Discharge Date: Jun 04, 2020 Discharge Time: 21:00 Admission Diagnosis Admission Diagnosis Intrauterine at 39 6/7 weeks 2. Poor Care 3. Unknown GBS Status Discharge Diagnosis Intrauterine at 39 6/7 weeks--delivered 2. Poor Care 3. Unknown GBS Status Reason Hospital Visit Ms. Tierney, 39 6/7 weeks, presents to Labor & Delivery for Pitocin Induction of Labor. Ms. Tierney has had very poor Care (one visit) and an unknown GBS status. Discharge Summary Hospital Course Was the Problem List Reviewed?: Yes Hospital Course Ms. Tierney presented to the hospital for Pitocin Induction of Labor. I artificially ruptured her membranes. She received an epidural for antepartum pain management. She progressed to complete. After a short course of pushing delivered a healthy viable . , she was started on pain management and comfort. care. Her vital signs remained stable throughout her hospitalization. The remainder of her hospital stay was unremarkable. I will discharge her to home with prescriptions, instructions and a follow up appointment. Labs Laboratory Tests 06/03/20 12:20: Red Blood Count 3.52L, Hemoglobin 10.0L, Hematocrit 31L, Red Cell Distribution Width 14.6H, Mean Platelet Volume 12.9H Procedures None. Discharge Physical Examination Allergies: Coded Allergies: No Known Drug Allergies (Verified , 06/02/20) Vitals & I&Os Vital Signs Date Time Temp Pulse Resp B/P (MAP) Pulse Ox O2 Delivery O2 Flow Rate FiO2 06/04/20 01:45 36.4 88 16 110/70 (83) Room Air 06/03/20 20:15 100 General Appearance: Alert, Oriented X3, Cooperative HEENT: Atraumatic Respiratory: Clear to Auscultation, Normal Air Movement Cardiovascular: Regular Rate, No Murmurs Abdominal: Normal Bowel Sounds, Soft, No Tenderness Extremities: No Clubbing, No Cyanosis Skin: No Rashes Neuro: Normal Gait, Normal Speech Psych/Mental Status: Mental Status NL Discharge Home Medications Reviewed and agree with Discharge Medication list on patient's Discharge Instruction sheet Instructions to Patient/Family Please see electronic discharge instructions given to patient. Clinical Quality Measures DVT/VTE Risk/Contraindication: Risk Factor Score Per Nursin RFS Level Per Nursing on Admit: 2=Moderate JESÚS SCHWARTZ DO Jun 04, 2020 06:21
[2020-06-04] MEDS ORDERED: PRENATAL VITAMIN 1 EA TAB PO SCH (07:00)
--- NOTE | 2020-06-04 08:54 | NUR ---
CM/SS visited with patient for social service consult for little care. The patient, significant other, and baby (Shaggy) were present in the room during visit. The patient picked baby up to work on breast feeding. Appeared to reed well and appropriately with baby. The patients significant other rolled over and slept during the visit. The patient reports that she has 3 additional children (10, 8, 5) that lives with her mother. After further questioning from this sw, she states that they all live with the patients mother Selin ([phone]). According to the patient she has custody of all children and has not had any in foster care. The patients significant other also has a 5-year-old who he shares custody of. The patient reports that they may stay with her significant others mom after leaving the hospital for a while. care: The patient reports she is a [facility] patient and follows with Dr. Strickland. She reports that she was going to her appointments; however, after the virus hit she did not want to risk going to the doctors office for appointments. She stated "well if you think about it, that's where the sick people are going to go". Therefore, she did not finish her care. CM/SS discussed new born check ups and if she felt comfortable taking baby to appointments. She verbalized that she will and does not have a problem with it. 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 She did not give a time frame of her time in residential. The patient verbalized that she did relapse but found out she was and stopped using. She denies any current substance use. A urinary toxicology is being ran. Resources: The patient reports that she "has everything she needs" for baby. She states that she has plenty of clothes and diapers. She states she has a crib and car seat. The patient has Medicaid as insurance but is not receiving any food stamps or anna assistance. She is not currently on [facility] but gave this sw verbal permission to make a referral. CM/SS will contact [facility] to speak with patient. MIRIAN/SS discussed different resources such as parents as teachers, to three, healthy families, and [facility] diaper stock. She states she does not want this sw to make any referrals for those resources at this time. The patient is not currently employed and reports that her significant other is not working either. The significant other is not receiving any assistance at this time according to patient. CM/SS will continue to follow for UDS screen results. Addendum: 06/04/20 at 0928 by KARINA GUERRA CM/SS received call from patients nurse in OB reporting UDS was negative. No DCF report needed at this time. No further needs.
[2020-06-04 09:21] LABS: AMPHETAMINE SCREEN, URINE NEGATIVE (NEGATIVE); BARBITURATE SCREEN URINE NEGATIVE (NEGATIVE); BENZODIAZEPINES SCREEN URINE NEGATIVE (NEGATIVE); CANNABINOID SCREEN, URINE NEGATIVE (NEGATIVE); COCAINE SCREEN URINE NEGATIVE (NEGATIVE); METHADONE STAT NEGATIVE (NEGATIVE); METHAMPHETAMINE SCREEN URINE S NEGATIVE (NEGATIVE); OPIATE SCREEN URINE NEGATIVE (NEGATIVE); OXYCODONE STAT NEGATIVE (NEGATIVE); PROPOXYPHENE STAT NEGATIVE (NEGATIVE); TRICYCLIC ANTIDEPRESSANTS SCRE NEGATIVE (NEGATIVE)
[2020-06-04 10:14] VITALS: BP 114/62
[2020-06-04] MEDS: DOCUSATE SODIUM 100 MG (COLACE) CAP PO SCH (10:18)
[2020-06-04] MEDS: IBUPROFEN 800 MG (MOTRIN) TAB PO SCH ×2 (10:32→13:20)
[2020-06-04] MEDS: ACETAMINOPHEN 500 MG TAB (TYLENOL) PO SCH ×3 (10:33→14:10)
[2020-06-04 12:55] VITALS: BP 108/68
--- NOTE | 2020-06-04 15:25 | NUR ---
PT CALLED OUT REQUESTING A SANDWICH TRAY. NO FURTHER NEEDS VOICED.
--- NOTE | 2020-06-04 15:49 | Anesthesia-Regional Post-Op ---
Regional Patient Condition Mental Status: Alert, Oriented x3 Circulation: Same as Pre-Op Headache: Absent Sensation: Full Recovery Motor Block: Absent Post Op Complications Complications None Follow Up Care/Instructions Patient Instructions None needed. Anesthesia/Patient Condition Patient is doing well, no complaints, stable vital signs, no apparent adverse anesthesia problems. TIANA GRANGER DO Jun 04, 2020 15:49
[2020-06-04 19:00] VITALS: BP 109/68
--- NOTE | 2020-06-04 19:07 | NUR ---
DISCHARGE PAPERS PROVIDED AND REVIEWED WITH PT, PT VERBALIZES UNDERSTANDING. QUESTIONS ANSWERED. PAPER SIGNED.
--- NOTE | 2020-06-04 19:10 | NUR ---
PT DISCHARGED FROM -[facility] TO [facility] STATUS IN STABLE CONDITION.
== END 2020-06-04 19:10 | disposition home or self-care (01) | DRG 807 ==
LOC: LDRP 10:29
PROVIDERS: ADMIT Obstetrics & Gynecology; ATTEND Obstetrics & Gynecology
PROC: 10E0XZZ Delivery of Products of Conception, External Approach (ICD-10-PCS; principal; 2020-06-03)
DX: O80 Encounter for full-term uncomplicated delivery (principal); Z37.0 Single live birth; Z3A.39 39 weeks gestation of pregnancy
CPT/HCPCS: 36415; 80306; 85025; 86703; 86850; 86900; 86901

== ENCOUNTER 2022-05-09 17:31 | Outpatient (CLI) | payer MEDICAID ==
[~2022-05-09] VITALS: Ht 163 cm; Wt 60.7 kg
[~2022-05-09 17:31] MED LIST changes: +ACET-93 PO; +DOCU-239 PO; +IBUP-1780 PO; +OXC5T PO; -SULF1TAB35 PO; +SULF1TAB38 PO
[2022-05-09 17:49] VITALS: BP 115/70
[2022-05-09 18:26] VITALS: BP 113/71
[2022-05-09 18:30] VITALS: BP 113/71
[2022-05-09 18:30] LABS: BILIRUBIN,URINE NEGATIVE (NEGATIVE); CLARITY,URINE CLOUDY; COLOR,URINE YELLOW; GLUCOSE, URINE (UA) NEGATIVE (NEGATIVE); KETONES,URINE NEGATIVE (NEGATIVE); LEUKOCYTE ESTERASE ,URINE TRACE (NEGATIVE); NITRITE,URINE NEGATIVE (NEGATIVE); PH,URINE 5.5 (5-9); PROTEIN,URINE NEGATIVE (NEGATIVE)
[2022-05-09 18:40] VITALS: BP 113/71
[2022-05-09 18:42] LABS: AMPHETAMINE SCREEN, URINE POSITIVE (NEGATIVE); BARBITURATE SCREEN URINE NEGATIVE (NEGATIVE); BENZODIAZEPINES SCREEN URINE NEGATIVE (NEGATIVE); CANNABINOID SCREEN, URINE NEGATIVE (NEGATIVE); COCAINE SCREEN URINE NEGATIVE (NEGATIVE); METHADONE STAT NEGATIVE (NEGATIVE); OPIATE SCREEN URINE NEGATIVE (NEGATIVE); OXYCODONE STAT NEGATIVE (NEGATIVE); PROPOXYPHENE STAT NEGATIVE (NEGATIVE); TRICYCLIC ANTIDEPRESSANTS SCRE NEGATIVE (NEGATIVE)
[2022-05-09 18:48] LABS: BACTERIA,URINE MODERATE /HPF
== END 2022-05-09 18:40 | disposition home or self-care (01) ==
LOC: WSo 17:31 → LDRP 17:31 → WSo 18:40
PROVIDERS: ATTEND Family Medicine
DX: O36.8130 Decreased fetal movements, third trimester, not applicable or unspecified (principal); Z3A.38 38 weeks gestation of pregnancy
CPT/HCPCS: 80306; 81000; 87088

== ENCOUNTER 2022-05-16 21:09 | Inpatient (IN) | payer MEDICAID ==
[~2022-05-16] VITALS: Ht 160 cm; Wt 61.7 kg
[2022-05-16 21:20] VITALS: BP 116/79
[2022-05-16 21:42] LABS: BILIRUBIN,URINE NEGATIVE (NEGATIVE); CLARITY,URINE CLEAR; COLOR,URINE YELLOW; GLUCOSE, URINE (UA) NEGATIVE (NEGATIVE); KETONES,URINE NEGATIVE (NEGATIVE); LEUKOCYTE ESTERASE ,URINE TRACE (NEGATIVE); NITRITE,URINE NEGATIVE (NEGATIVE); PROTEIN,URINE NEGATIVE (NEGATIVE)
[2022-05-16 21:51] LABS: BACTERIA,URINE MODERATE /HPF; RBC,URINE 0-2 /HPF
[2022-05-16 22:01] LABS: AMPHETAMINE SCREEN, URINE POSITIVE (NEGATIVE); BARBITURATE SCREEN URINE NEGATIVE (NEGATIVE); BENZODIAZEPINES SCREEN URINE NEGATIVE (NEGATIVE); CANNABINOID SCREEN, URINE NEGATIVE (NEGATIVE); COCAINE SCREEN URINE NEGATIVE (NEGATIVE); METHADONE STAT NEGATIVE (NEGATIVE); OPIATE SCREEN URINE NEGATIVE (NEGATIVE); OXYCODONE STAT NEGATIVE (NEGATIVE); PROPOXYPHENE STAT NEGATIVE (NEGATIVE); TRICYCLIC ANTIDEPRESSANTS SCRE NEGATIVE (NEGATIVE)
[2022-05-16] MEDS ORDERED: D5 LR IV SOLUTION 1,000 ML IV SCH (23:15)
[2022-05-16 23:18] VITALS: BP 120/76
[2022-05-16 23:46] LABS: BASOPHILS % (AUTO) 0 % (0-10); EOSINOPHILS # (AUTO) 0.1 10^3/uL (0.0-0.3); EOSINOPHILS % (AUTO) 1 % (0-10); HEMATOCRIT 30 % (35-52); HEMOGLOBIN 9.5 g/dL (11.5-16.0); LYMPHOCYTES # (AUTO) 2.5 10^3/uL (1.0-4.0); LYMPHOCYTES % (AUTO) 24 % (12-44); MEAN CORPUSCULAR HEMOGLOBIN 27 pg (25-34); MEAN CORPUSCULAR HGB CONC 32 g/dL (32-36); MEAN CORPUSCULAR VOLUME 85 fL (80-99); MEAN PLATELET VOLUME 13.4 fL (9.0-12.2); MONOCYTES # (AUTO) 0.6 10^3/uL (0.0-1.0); MONOCYTES % (AUTO) 6 % (0-12); NEUTROPHILS # (AUTO) 7.3 10^3/uL (1.8-7.8); NEUTROPHILS % (AUTO) 68 % (42-75); PLATELET COUNT 176 10^3/uL (130-400); WHITE BLOOD COUNT 10.7 10^3/uL (4.3-11.0)
[2022-05-17] VITALS (35 sets, daily range): BP systolic 76–156; BP diastolic 45–84
[2022-05-17] MEDS ORDERED: MEPIVACAINE (CARBOCAINE) 2% 50 ML VIAL INJ PRN (02:45)
[2022-05-17] MEDS ORDERED: AMPICILLIN FOR IV USE 2,000 MG in NS (IVPB) 50 ML IV SCH (03:00)
[2022-05-17] MEDS ORDERED: CATHETER FLUSH 10 ML SYR IV SCH ×2 (06:00→14:00)
--- NOTE | 2022-05-17 07:36 | History & Physical-OB ---
OB - Chief Complaint & HPI Date/Time Date of Admission: Date of Admission: May 16, 2022 at 22:56 Date seen by a Provider: May 17, 2022 Time Seen by a Provider: 06:30 Chief Complaint/History OB-Reason for Admission/Chief: contractions Hx : 5 Hx Para: 4 Expected Date of Delivery: May 14, 2022 Gestational Age in Weeks: 40 Gestational Age in Days: 2 Other reason for admission: GBS status unknown Admission Nurse Assessment Rev: Yes History of Labs May 16, 2022: urine screen positive for amphetamines and methamphetamines Allergies and Home Medications Allergies Coded Allergies: No Known Drug Allergies (Verified , 06/02/20) Patient Home Medication List Home Medication List Reviewed: Yes Vits W-Ca,Fe,Fa(<1MG) () 1 Each Tablet, (Reported) Entered as Reported by: RAMU ROA on 03/14/102222 Last Action: Reviewed OB - History Hx of Present Care: Yes Ultrasounds: Normal mid trimester US (performed at 29 weeks gestation) Obstetrical Complications: Other (lack of care one visit only) Medical Complications: None, Other Obstetrical History Hx : 5 Hx Para: 4 Hx Termination: No Hx Total # of Abortions (Spona: 0 Hx Multiple Gestation: No Hx Stillbirth: No Hx Complication: No Hx Induced Hypertens: No Hx Maternal Gestational Diabet: No Delivery History Hx Dystocia: No Hx Large For Gestational Age I: No Hx Small for Gestational Age I: No Hx Section: No Hx Vaginal Delivery Post C-Sec: No Hx Blood Disorders: No Adverse Rxn to Tranfusion: No Patient Past Medical History History of SVT at age 17 Social History/Family History Alcohol Use: Denies Use Recreational Drug Use: Yes 2nd Hand Smoke Exposure: Yes Immunizations Hepatitis A: Yes Hepatitis B: Yes Tetanus Booster (TDap): Unknown OB - Admission Exam Physical Exam Vitals: Vital Signs 05/17/22 06:15 Temp 36.4 Pulse 82 Resp 18 B/P (MAP) 104/53 (70) O2 Delivery Room Air HEENT: Moist Membranes Cervical Dilatation: 4cm (by nurses evaluation) Amniotic Fluid: Other (intact membranes) Labs Laboratory Tests Test 05/16/22 21:12 05/16/22 21:26 05/16/22 21:30 05/16/22 23:20 Range/Units Urine Color YELLOW Urine Clarity CLEAR Urine pH 6.0 5-9 Urine Specific [place] 1.025 H 1.016-1.022 Urine Protein NEGATIVE NEGATIVE Urine Glucose (UA) NEGATIVE NEGATIVE Urine Ketones NEGATIVE NEGATIVE Urine Nitrite NEGATIVE NEGATIVE Urine Bilirubin NEGATIVE NEGATIVE Urine Urobilinogen 0.2 < = 1.0 MG/DL Urine Leukocyte Esterase TRACE H NEGATIVE Urine RBC (Auto) NEGATIVE NEGATIVE Urine RBC 0-2 /HPF Urine WBC 5-10 H /HPF Urine Squamous Epithelial Cells 5-10 /HPF Urine Renal Epithelial Cells NONE /HPF Urine Crystals NONE /LPF Urine Bacteria MODERATE H /HPF Urine Casts NONE /LPF Urine Mucus MODERATE H /LPF Urine Culture Indicated YES Membranes Rupture NEGATIVE Urine Opiates Screen NEGATIVE NEGATIVE Urine Oxycodone Screen NEGATIVE NEGATIVE Urine Methadone Screen NEGATIVE NEGATIVE Urine Propoxyphene Screen NEGATIVE NEGATIVE Urine Barbiturates Screen NEGATIVE NEGATIVE Ur Tricyclic Antidepressants Screen NEGATIVE NEGATIVE Urine Phencyclidine Screen NEGATIVE NEGATIVE Urine Amphetamines Screen POSITIVE H NEGATIVE Urine Methamphetamines Screen POSITIVE H NEGATIVE Urine Benzodiazepines Screen NEGATIVE NEGATIVE Urine Cocaine Screen NEGATIVE NEGATIVE Urine Cannabinoids Screen NEGATIVE NEGATIVE White Blood Count 10.7 4.3-11.0 10^3/uL Red Blood Count 3.56 L 3.80-5.11 10^6/uL Hemoglobin 9.5 L 11.5-16.0 g/dL Hematocrit 30 L 35-52 % Mean Corpuscular Volume 85 80-99 fL Mean Corpuscular Hemoglobin 27 25-34 pg Mean Corpuscular Hemoglobin Concent 32 32-36 g/dL Red Cell Distribution Width 13.9 10.0-14.5 % Platelet Count 176 130-400 10^3/uL Mean Platelet Volume 13.4 H 9.0-12.2 fL Immature Granulocyte % (Auto) 1 % Neutrophils (%) (Auto) 68 42-75 % Lymphocytes (%) (Auto) 24 12-44 % Monocytes (%) (Auto) 6 0-12 % Eosinophils (%) (Auto) 1 0-10 % Basophils (%) (Auto) 0 0-10 % Neutrophils # (Auto) 7.3 1.8-7.8 10^3/uL Lymphocytes # (Auto) 2.5 1.0-4.0 10^3/uL Monocytes # (Auto) 0.6 0.0-1.0 10^3/uL Eosinophils # (Auto) 0.1 0.0-0.3 10^3/uL Basophils # (Auto) 0.0 0.0-0.1 10^3/uL Immature Granulocyte # (Auto) 0.1 0.0-0.1 10^3/uL OB - Assessment/Plan/Diagnosis Assessment Assessment: observation (at this point. She is at 40 weeks gestation) Admission Dx 1. Intrauterine at 40 weeks gestation and possible early labor 2. Lack of care 3. Urine drug screen positive for amphetamines and methamphetamines Admission Status: Observation (until patient agrees to stay) Plan Other Plan At this point patient refuses to admit to using any methamphetamines. She claims the only medication she has taken is melatonin. When confronted she was ready for release from hospital. She does not want me to check her cervix until she knows 100% sure she can have an epidural if in labor. We'll check with anesthesia and I suspect they will evaluate her with her recommendations. She understands that a psych social worker consult will be obtained provided she stays in patient. SAVANA KELLER MD May 17, 2022 07:36
[2022-05-17] MEDS: AMPICILLIN FOR IV USE 1,000 MG in NS (IVPB) 50 ML IV SCH ×2 (08:28→12:42)
[2022-05-17] MEDS ORDERED: fentaNYL 2 mcg/ml BUPIVA 0.125 100 ML ONE (08:53)
[2022-05-17] MEDS ORDERED: LACTATED RINGERS 1,000 ML IV ONE (08:53)
[2022-05-17] MEDS ORDERED: diphenhydrAMINE 50 MG/ML INJ (BENADRYL) IV PRN (10:15)
[2022-05-17] MEDS ORDERED: ONDANSETRON 4 MG/2 ML (SDV) Z0FRAN IV PRN (10:15)
[2022-05-17] MEDS ORDERED: METOCLOPRAMIDE INJ 10 MG/2 ML (REGLAN) IV PRN (10:15)
[2022-05-17] MEDS ORDERED: NALOXONE 0.4 MG/ML 1 ML (NARCAN) VIAL IV PRN ×3 (10:15→14:00)
[2022-05-17] MEDS ORDERED: LACTATED RINGERS 1,000 ML IV SCH (10:15)
[2022-05-17] MEDS ORDERED: EPIDURAL (fentaNYL 2 MCG/ML BUPIVA 0.125%)100 ML BAG EPI SCH (10:15)
[2022-05-17] MEDS ORDERED: OXYTOCIN PRE-MIX DRIP 500 ML IV ONE (11:29)
[2022-05-17] MEDS ORDERED: OXYTOCIN PRE-MIX DRIP 500 ML IV SCH ×2 (11:30→14:00)
[2022-05-17] MEDS ORDERED: WITCH HAZEL(TUCKS) 40 EA JAR TOP PRN (14:00)
[2022-05-17] MEDS ORDERED: TETANUS,DIPTH,PERTUSS P/F (BOOSTRIX) 0.5 ML VIAL IM ONE (14:00)
[2022-05-17] MEDS ORDERED: BENZOCAINE/MENTHOL (DERMOPLAST) 56 ML CAN TP PRN (14:00)
[2022-05-17] MEDS ORDERED: MEASLES,MUMPS,RUBELLA 1 EA INJ SQ ONE (14:00)
--- NOTE | 2022-05-17 14:00 | OB Labor & Delivery Record ---
L&D History Date of Service Date of Service: May 17, 2022 History Expected Date of Delivery: May 14, 2022 Gestational Age in Weeks: 40 Hx : 5 Hx Para: 5 Complications Events: No Care (other than first visit) Operative Indications (Cesarea: N/A-Vaginal Delivery Intrapartal Events: None L&D Stage1 Stage One Onset of Labor - Date: May 16, 2022 Onset of Labor - Time: 23:00 Monitors and Tracing Monitor Mode: External Heart Rate: 135 Monitor Accelerations: Uniform Monitor Decelerations: None Station: -1 Manufacturing Industrial Engineer Variability: Average (6-10) Short Term Variability: Present Presentation: Vertex Vital Signs VS - Last 72 Hours, by Label 05/16/22 05/16/22 05/16/22 05/16/22 21:20 21:20 21:20 23:18 Temp 36.7 36.7 36.7 36.4 Pulse 90 90 90 85 Resp 18 18 18 18 B/P (MAP) 116/79 (91) 120/76 (91) Pulse Ox 98 98 98 O2 Delivery Room Air Room Air Room Air Room Air 05/17/22 05/17/22 05/17/22 05/17/22 06:15 09:19 09:49 09:52 Temp 36.4 36.8 Pulse 82 77 85 Resp 18 18 18 B/P (MAP) 104/53 (70) 126/69 (88) 123/76 (92) Pulse Ox 97 O2 Delivery Room Air Room Air Room Air 05/17/22 05/17/22 05/17/22 05/17/22 09:55 09:58 10:02 10:05 Pulse 76 79 96 79 Resp 18 18 18 18 B/P (MAP) 117/76 (90) 115/74 (88) 118/84 (95) 99/54 (69) Pulse Ox 97 97 98 98 O2 Delivery Room Air Room Air Room Air Room Air 05/17/22 05/17/22 05/17/22 05/17/22 10:08 10:11 10:13 10:22 Pulse 76 78 76 85 Resp 18 18 18 18 B/P (MAP) 92/51 (65) 76/45 (55) 98/57 (71) 98/57 (71) Pulse Ox 98 97 97 99 O2 Delivery Room Air Room Air Room Air Room Air 05/17/22 05/17/22 05/17/22 05/17/22 10:36 11:07 11:22 11:36 Pulse 64 71 77 71 Resp 18 18 18 18 B/P (MAP) 113/72 (86) 100/63 (75) 106/68 (81) 101/70 (80) Pulse Ox 99 99 100 99 O2 Delivery Room Air Room Air Room Air Room Air 05/17/22 05/17/22 05/17/22 05/17/22 11:51 12:08 12:22 12:37 Pulse 70 66 74 76 Resp 18 18 18 18 B/P (MAP) 104/71 (82) 110/71 (84) 128/72 (90) 115/77 (90) Pulse Ox 100 100 100 100 O2 Delivery Room Air Room Air Room Air Room Air Signs of Distress by FHT Signs of Distress no Rupture of Membranes Spontaneous Ruture of Membrane: No Amniotic Membrane Rupture Time: 1125 Amniotic Membrane Fluid Desc.: Clear Vaginal Bleeding Description: None Induction/Anesthesia Epidural Cath Placement - Time: 0954 L&D Stage2 Stage Two Stage II Date: May 17, 2022 Stage II Time: 13:48 Monitors and Tracing Monitor Mode: Internal Heart Rate: 135 Monitor Accelerations: Uniform Monitor Decelerations: None Manufacturing Industrial Engineer Variability: Average (6-10) Position: Left Occiput Anterior Presentation: Vertex Signs of Distress by FHT Signs of Distress none Cord Descript/Complications Cord Vessel Description: 3 Vessels Delivery Type Delivery Method: Spontaneous Vaginal Anterior Shoulder: Left Episiotomy/Perineal Laceration Laceraction(s)/Extensions: No Condition of Delivery 1 minute Comment: 8 5 minute Comment: 9 Condition of Condition of : Living Exam: No Observed Abnormalities Resuscitation Resuscitation: N/A - Spontaneous Resp L&D Stage3 Stage Three Stage III Date: May 17, 2022 Stage III Time: 13:53 Pictocin Pitocin Administration mu/min: 2 Pitocin ml/hr: 2 Pitocin Administration Comment: 1135 PITOCIN STARTED @ 2 ML/HR/PUMP PER ORDER. TO FOLLOWING PROTOCOL. Placenta Delivery Placenta Delivery: Spontaneous Delivery Summary Summary Estimated blood loss (mL): 100 Condition of Delivery Examined: Cervix Examined Post Hemorrhage: No Intervention Required none SAVANA KELLER MD May 17, 2022 14:00
[2022-05-17] MEDS: IBUPROFEN 600 MG (MOTRIN) TAB PO SCH ×2 (17:56→23:58)
[2022-05-17] MEDS: ACETAMINOPHEN 500 MG TAB (TYLENOL) PO SCH ×2 (20:41→20:46)
[2022-05-17] MEDS: DOCUSATE SODIUM 100 MG (COLACE) CAP PO SCH ×2 (20:42→20:46)
[2022-05-18 00:08] VITALS: BP_SYST 112; BP_SYST 114; BP_DIAS 58; BP_DIAS 65
[2022-05-18] MEDS: IBUPROFEN 600 MG (MOTRIN) TAB PO SCH ×2 (05:17→13:06)
[2022-05-18 05:23] VITALS: BP 124/69
[2022-05-18 06:04] LABS: BASOPHILS % (AUTO) 0 % (0-10); HEMOGLOBIN 9.1 g/dL (11.5-16.0)
[2022-05-18 06:06] LABS: EOSINOPHILS # (AUTO) 0.1 10^3/uL (0.0-0.3); EOSINOPHILS % (AUTO) 1 % (0-10); HEMATOCRIT 29 % (35-52); LYMPHOCYTES # (AUTO) 2.5 10^3/uL (1.0-4.0); LYMPHOCYTES % (AUTO) 25 % (12-44); MEAN CORPUSCULAR HEMOGLOBIN 27 pg (25-34); MEAN CORPUSCULAR HGB CONC 32 g/dL (32-36); MEAN CORPUSCULAR VOLUME 84 fL (80-99); MEAN PLATELET VOLUME 13.3 fL (9.0-12.2); MONOCYTES # (AUTO) 0.6 10^3/uL (0.0-1.0); MONOCYTES % (AUTO) 6 % (0-12); NEUTROPHILS # (AUTO) 6.7 10^3/uL (1.8-7.8); NEUTROPHILS % (AUTO) 68 % (42-75); PLATELET COUNT 165 10^3/uL (130-400)
--- NOTE | 2022-05-18 07:29 | Discharge Summary ---
Diagnosis/Chief Complaint Date of Admission May 16, 2022 at 22:56 Date of Discharge May 18, 2022 Admission Diagnosis Admission Diagnosis 1. Intrauterine at 40 weeks gestation 2. Anemia--iron deficiency of 3. Maternal urine positive for methamphetamine Discharge Diagnosis 1. Intrauterine at 40 weeks gestation 2. Anemia--iron deficiency of 3. Maternal urine positive for methamphetamine Chief Complaint/HPI Chief Complaint/HPI 31-year-old 5 now term 5 who initially presented to labor and delivery during the late evening of May 16, 2022 with contractions. She had limited care only having first visit for intake at [facility]. Her EDC was noted to be May 08, 2022 based upon late ultrasound but May 14 based on LMP. Discharge Summary-OBS Procedures 1. Epidural per anesthesia 2. Spontaneous vaginal delivery Discharge Physical Examination Allergies: Coded Allergies: No Known Drug Allergies (Verified , 06/02/20) Vitals & I&Os Intake and Output 05/18/22 00:00 Intake Total 1550 ml Balance 1550 ml Vital Sign - Last 12Hours Date Time Temp Pulse Resp B/P (MAP) Pulse Ox O2 Delivery O2 Flow Rate FiO2 05/18/22 05:23 36.3 73 18 124/69 (87) 98 Room Air General Appearance: Alert, No Acute Distress Respiratory: Clear to Auscultation Cardiovascular: Regular Rate Abdominal: Soft Hospital Course Was the Problem List Reviewed?: Yes patient was admitted during the evening of May 16, 2022 for labor. She was mon itored during the real estate developer of May 17 and continued to contract. Ultimately she received epidural per anesthesia. She was noted to be positive on her urine drug screen for methamphetamines. She adamantly denied any use of the methamphetamines. Ultimately she underwent amniotomy later in the morning of May 17. She quickly went on to completion and delivered a term viable female. Delivery was accomplished over an intact perineum and the infant received Apgars of 8 at 1 minute and 9 at 5 minutes. Following delivery she underwent routine care orders. She had no complications during the remainder of hospital stay. She was noted to have hemoglobin in the morning of May 18 of 9.1 compared to admission of 9.5. She had tolerated regular diet and was ambulatory. She denied any shortness of breath or chest pain. She was felt ready for dismissal during the afternoon of May 18, 2022. Social service consult was obtained in the morning of May 18, 2022. Labs Laboratory Tests 05/18/22 05:17: White Blood Count 10.0, Red Blood Count 3.44L, Hemoglobin 9.1L, Hematocrit 29L, Mean Corpuscular Volume 84, Mean Corpuscular Hemoglobin 27, Mean Corpuscular Hemoglobin Concent 32, Red Cell Distribution Width 14.0, Platelet Count 165, Mean Platelet Volume 13.3H, Immature Granulocyte % (Auto) 0, Neutrophils (%) (Auto) 68, Lymphocytes (%) (Auto) 25, Monocytes (%) (Auto) 6, Eosinophils (%) (Auto) 1, Basophils (%) (Auto) 0, Neutrophils # (Auto) 6.7, Lymphocytes # (Auto) 2.5, Monocytes # (Auto) 0.6, Eosinophils # (Auto) 0.1, Basophils # (Auto) 0.0, Immature Granulocyte # (Auto) 0.0, Percent Immature Platelet Fraction 11.5H Microbiology 05/16/22 Urine Culture - Final, Complete Growth Consistent Discharge Instructions to patient/family Please see electronic discharge instructions given to patient. Discharge Medications Reviewed and agree with Discharge Medication list on patient's Discharge Instruction sheet SAVANA KELLER MD May 18, 2022 07:29
--- NOTE | 2022-05-18 07:31 | Discharge Inst-Women's Service ---
Discharge Inst-Women's Serv Depart Medication/Instructions New, Converted or Re-Newed RX: Other Instructions May take upun-[id number] ibuprofen 2 or 3 tablets every 6 hours if needed for uterine cramps Problems Reviewed?: Yes Consults/Follow Up Additional Follow Up: Yes (Dr Keller in [facility] weeks at [facility]) Activity Activity: Activity as Tolerated Driving Instructions: No Driving for 1 Week Nothing Inside Vagina: No [place] (for 6 weeks) Diet Discharge Diet: Regular Diet Return to The Hospital For: as below Symptoms to Report to : Bleeding Excessive, Fever Over 101 Degrees F, Vaginal Discharge Foul For Any Problems or Questions: Contact Your Physician SAVANA KELLER MD May 18, 2022 07:31
[2022-05-18 07:55] VITALS: BP 115/75
--- NOTE | 2022-05-18 08:30 | Anesthesia-Regional Post-Op ---
Regional Patient Condition Mental Status: Alert, Oriented x3 Circulation: Same as Pre-Op Headache: Absent Sensation: Full Recovery Motor Block: Absent Post Op Complications Complications None Follow Up Care/Instructions Patient Instructions None needed. Anesthesia/Patient Condition Patient is doing well, no complaints, stable vital signs, no apparent adverse anesthesia problems. No complications reported per nursing. D/C home per [facility] Criteria: Yes SHERLY ANGELA CRNA May 18, 2022 08:30
[2022-05-18 13:10] VITALS: BP 132/89
== END 2022-05-18 16:00 | disposition home or self-care (01) | DRG 807 ==
LOC: LDRP 21:09 → WSo 21:09 → LDRP 22:56 → WS 05-18 08:36 → LDRP 05-18 08:36
PROVIDERS: ADMIT Family Medicine; ATTEND Family Medicine
PROC: 10E0XZZ Delivery of Products of Conception, External Approach (ICD-10-PCS; principal; 2022-05-17)
PROC: 3E033VJ Introduction of Other Hormone into Peripheral Vein, Percutaneous Approach (ICD-10-PCS; 2022-05-17)
DX: O48.0 Post-term pregnancy (principal); Z37.0 Single live birth; Z3A.40 40 weeks gestation of pregnancy; O99.02 Anemia complicating childbirth; D50.9 Iron deficiency anemia, unspecified
CPT/HCPCS: 36415; 80306; 81000; 84112; 85025; 86850; 86900; 86901; 87088; 99212

== ENCOUNTER 2023-02-17 11:57 | Emergency (ER) | payer MEDICAID ==
[~2023-02-17] VITALS: Ht 160 cm; Wt 54.0 kg
[2023-02-17 12:18] VITALS: BP 112/79
[2023-02-17 13:15] LABS: BASOPHILS % (AUTO) 0 % (0-10); EOSINOPHILS # (AUTO) 0.1 10^3/uL (0.0-0.3); EOSINOPHILS % (AUTO) 1 % (0-10); HEMATOCRIT 37 % (35-52); HEMOGLOBIN 12.1 g/dL (11.5-16.0); LYMPHOCYTES # (AUTO) 1.7 10^3/uL (1.0-4.0); LYMPHOCYTES % (AUTO) 21 % (12-44); MEAN CORPUSCULAR HEMOGLOBIN 28 pg (25-34); MEAN CORPUSCULAR HGB CONC 33 g/dL (32-36); MEAN CORPUSCULAR VOLUME 84 fL (80-99); MEAN PLATELET VOLUME 11.8 fL (9.0-12.2); MONOCYTES # (AUTO) 0.7 10^3/uL (0.0-1.0); MONOCYTES % (AUTO) 9 % (0-12); NEUTROPHILS # (AUTO) 5.7 10^3/uL (1.8-7.8); NEUTROPHILS % (AUTO) 70 % (42-75); PLATELET COUNT 231 10^3/uL (130-400); WHITE BLOOD COUNT 8.2 10^3/uL (4.3-11.0)
[2023-02-17] MEDS ORDERED: KETOROLAC 15 MG/ML VIAL IVP ONE (13:15)
[2023-02-17] MEDS ORDERED: ORPHENADRINE 60 MG/2 ML (NORFLEX) AMP (ED ONLY) IV ONE (13:15)
--- NOTE | 2023-02-17 13:22 | ED Lower Extremity ---
General Chief Complaint: Lower Extremity Stated Complaint: RIGHT LEG PAIN Nursing Triage Note: PT TO TRIAGE W CO OF R LEG PAIN, STATES IS UNABLE TO WALK ON LEG THIS AM D/T PAIN /. STATES IS TENDER BEHIND KNEE AREA. PT DENIES INJURIES AT THIS X Source: patient Exam Limitations: no limitations (SOFÍA CARDENAS APRN) History of Present Illness Date Seen by Provider: Feb 17, 2023 Time Seen by Provider: 12:51 Initial Comments 32-year-old female presents to the ED with complaints of right knee pain starting last night. States that she often has bilateral feet and leg pain after work due to being on her feet all day. States that this pain is much more severe, reports she is unable to walk due to pain. Patient has a very difficult time extending knee, decreased range of motion. Reports the pain is mostly in the back of her knee. Reports some numbness in her skin around the knee. She has not taken any pain medication. She reports the pain shoots into her calf and up into her hip when she is standing. She also reports pain in her hip when flexing her hip. Denies any past medical history. No history of DVTs. Denies fevers, chest pain, shortness of breath, abdominal pain, nausea, vomiting, diarrhea. (SOFÍA CARDENAS APRN) Allergies and Home Medications Allergies Coded Allergies: No Known Drug Allergies (Verified , 06/02/20) Patient Home Medication List Home Medication List Reviewed: Yes (SOFÍA CARDENAS APRN) Ketorolac Tromethamine (Ketorolac Tromethamine) 10 Mg Tablet, 10 MG PO Q6H Prescribed by: Sofía Cardenas on 02/17/23 1533 Vits W-Ca,Fe,Fa(<1MG) () 1 Each Tablet, (Reported) Entered as Reported by: RAMU ROA on 03/14/10 2223 Review of Systems Constitutional: see HPI (SOFÍA CARDENAS APRN) Past Wupgrpw-Yjtvoz-Uzbmcg Hx Patient Social History Tobacco Use?: No Substance use?: No Alcohol Use?: No Pt feels they are or have been: No (SOFÍA CARDENAS APRN) Immunizations Up To Date Tetanus Booster (TDap): Unknown PED Vaccines UTD: Yes (SOFÍA CARDENAS APRN) Seasonal Allergies Seasonal Allergies: No (SOFÍA CARDENAS APRN) Past Medical History Surgery/Hospitalization HX: TUBES REMOVED. Surgeries: No Respiratory: No Cardiac: No Neurological: No Last Menstrual Period: Feb 14, 2023 Reproductive Disorders: No Sexually Transmitted Disease: No HIV/AIDS: No Gastrointestinal: No Musculoskeletal: No Endocrine: No HEENT: Yes (contacts/glasses) Cancer: No Psychosocial: No Integumentary: No Blood Disorders: No Adverse Reaction/Blood Tranf: No (SOFÍA ACRDENAS APRN) Family Medical History Cardiovascular disease 19 FATHER Myocardial infarction 19 FATHER Physical Exam Vital Signs Vital Signs - First Documented 02/17/23 12:18 Temp 37.6 Pulse 99 Resp 16 B/P (MAP) 112/79 (90) Pulse Ox 100 O2 Delivery Room Air (RADHA SOLIZ MD) Vital Signs Capillary Refill : Less Than 3 Seconds (SOFÍA CARDENAS APRN) Height, Weight, BMI Height: 5'3.00" Weight: 115lbs. oz. 52.278551wr; 21.00 BMI Method:Stated General Appearance: WD/WN, no apparent distress, moderate distress (Moderate distress with range of motion) Neck: supple, normal inspection Cardiovascular: regular rate, rhythm, no edema, no gallop, no JVD, no murmur Respiratory: lungs clear, normal breath sounds, no respiratory distress, no accessory muscle use Back: normal inspection, no vertebral tenderness Hips: right hip non-tender, right hip normal inspection, right hip limited range of motion, right hip pain (With range of motion) Knees: right knee non-tender, right knee normal inspection, right knee pain, right knee other (Decreased range of motion) Feet: right foot non-tender, right foot normal inspection, right foot normal range of motion, right foot no evidence of injury, right foot other (Sensation i ntact distally, cap refill less than 2 seconds) Neurologic/Psychiatric: alert, normal mood/affect Skin: normal color, warm/dry (SOFÍA CARDENAS APRN) Progress/Results/Core Measures Results/Orders Lab Results Laboratory Tests Test 02/17/23 13:09 Range/Units White Blood Count 8.2 4.3-11.0 10^3/uL Red Blood Count 4.37 3.80-5.11 10^6/uL Hemoglobin 12.1 11.5-16.0 g/dL Hematocrit 37 35-52 % Mean Corpuscular Volume 84 80-99 fL Mean Corpuscular Hemoglobin 28 25-34 pg Mean Corpuscular Hemoglobin Concent 33 32-36 g/dL Red Cell Distribution Width 13.6 10.0-14.5 % Platelet Count 231 130-400 10^3/uL Mean Platelet Volume 11.8 9.0-12.2 fL Immature Granulocyte % (Auto) 0 % Neutrophils (%) (Auto) 70 42-75 % Lymphocytes (%) (Auto) 21 12-44 % Monocytes (%) (Auto) 9 0-12 % Eosinophils (%) (Auto) 1 0-10 % Basophils (%) (Auto) 0 0-10 % Neutrophils # (Auto) 5.7 1.8-7.8 10^3/uL Lymphocytes # (Auto) 1.7 1.0-4.0 10^3/uL Monocytes # (Auto) 0.7 0.0-1.0 10^3/uL Eosinophils # (Auto) 0.1 0.0-0.3 10^3/uL Basophils # (Auto) 0.0 0.0-0.1 10^3/uL Immature Granulocyte # (Auto) 0.0 0.0-0.1 10^3/uL Erythrocyte Sedimentation Rate 29 H 0-20 MM/HR Sodium Level 136 135-145 MMOL/L Potassium Level 4.1 3.6-5.0 MMOL/L Chloride Level 105 98-107 MMOL/L Carbon Dioxide Level 22 21-32 MMOL/L Anion Gap 9 5-14 MMOL/L Blood Urea Nitrogen 10 7-18 MG/DL Creatinine 0.76 0.60-1.30 MG/DL Estimat Glomerular Filtration Rate 108 BUN/Creatinine Ratio 13 Glucose Level 93 70-105 MG/DL Calcium Level 9.1 8.5-10.1 MG/DL Corrected Calcium 9.0 8.5-10.1 MG/DL Total Bilirubin 0.4 0.1-1.0 MG/DL Aspartate Amino Transf (AST/SGOT) 19 5-34 U/L Alanine Aminotransferase (ALT/SGPT) 21 0-55 U/L Alkaline Phosphatase 90 40-136 U/L C-Reactive Protein High Sensitivity 0.67 H 0.00-0.50 MG/DL Total Protein 7.3 6.4-8.2 GM/DL Albumin 4.1 3.2-4.5 GM/DL (RADHA SOLIZ MD) My Orders Orders - RADHA SOLIZ MD Us Venous Lower Ext Rt (02/17/23 14:35) (RADHA SOLIZ MD) Vital Signs/I&O 02/17/23 02/17/23 12:18 15:39 Temp 37.6 Pulse 99 96 Resp 16 18 B/P (MAP) 112/79 (90) Pulse Ox 100 100 O2 Delivery Room Air Room Air (RADHA SOLIZ MD) Blood Pressure Mean: 90 Progress Progress Note : Time: 13:21 Progress Note Patient seen and evaluated, resting comfortably in bed, moderate distress with range of motion of knee. Based on exam and symptoms, differential diagnosis includes septic joint, bursitis, sciatica, DVT. Work-up initiated including CBC, CMP, CRP, ESR, knee x-ray. Toradol, Norflex, Decadron ordered. 1435 fentanyl was ordered for patient, due to no improvement in pain. Patient declined fentanyl because she does not want to take narcotic. Labs reviewed. CBC shows normal WBC 8.2, normal hemoglobin 12.1. ESR slightly elevated 29. CMP grossly negative. CRP slightly elevated 0.67. X-ray reviewed. No acute bony abnormality. Ultrasound of leg ordered to rule out DVT and assess for Landin's cyst. 1525 ultrasound reviewed. Slightly complex fluid collection posterior medial popliteal fossa. Negative for DVT. Results discussed with patient. Will discharge with Toradol. Patient does not want narcotic pain medication. Discharge instructions and return precautions provided. (SOFÍA CARDENAS APRN) Diagnostic Imaging Diagonstic Imaging: Xray Plain Films/CT/US/NM/MRI: knee Comments [facility]. [place], [place] NAME: TOMAS OGDEN Sunil MED REC#: [id number] PT STATUS: REG ER : 1990 PHYSICIAN: SOFÍA CARDENAS APRN ADMIT DATE: 02/17/23/ER Signed Date of Exam:02/17/23 KNEE, RIGHT, 3 VIEWS INDICATION: knee pain TECHNIQUE: 3 views of the right knee CORRELATION STUDY: None FINDINGS: The joint spaces are maintained. The articular surfaces are smooth and preserved. There is no acute bony abnormality. Soft tissues are unremarkable. IMPRESSION: 1. Negative for acute bony abnormality of the knee. Dictated by: Dictated on workstation # [id number] Dict: 02/17/23 1354 Trans: 02/17/23 1503 DO [id number] Interpreted by: MANUELA RIVERA DO Electronically signed by: MANUELA RIVERA DO 02/17/23 1503 Diagonstic Imaging: Ultrasound Plain Films/CT/US/NM/MRI: leg Comments [facility] [place], [place] NAME: TOMAS OGDEN [facility] REC#: [id number] PT STATUS: DEP ER : 1990 PHYSICIAN: RADHA SOLIZ MD ADMIT DATE: 02/17/23/ER Signed Date of Exam:02/17/23 US VENOUS LOWER EXT RT INDICATION: Posterior knee pain TECHNIQUE: Multiple real-time grayscale images were obtained over the right lower extremity in various projections, bilaterally. Additional duplex Doppler and color Doppler images were also obtained. CORRELATION STUDY: None FINDINGS: Color and grayscale sonographic images demonstrate no intraluminal defect within the visualized portion of the common femoral, superficial femoral and/or popliteal veins to suggest thrombus formation. These vessels demonstrate normal response to compression and augmentation. Slightly complex fluid collection posterior medial popliteal fossa, 2.6 x 0.8 x 1.2 cm. IMPRESSION: 1. Negative for deep venous thrombosis of the right leg. 2. Complex fluid collection medial popliteal fossa. Could reflect a complex landin's cyst. Dictated by: Dictated on workstation # [id number] Dict: 02/17/23 1518 Trans: 02/17/23 1608 DO [id number] Interpreted by: MANUELA RIVERA DO Electronically signed by: MANUELA RIVERA DO 02/17/23 1608 (SOFÍA CARDENAS APRN) Departure Impression Primary Impression: Landin cyst Disposition: 01 HOME, SELF-CARE Condition: Stable Departure-Patient Inst. Decision time for Depature: 15:29 (SOFÍA CARDENAS APRN) Referrals: [facility] (PCP/Family) Primary Care Physician BASSEM YAP MD Patient Instructions: Landin's (Popliteal) Cyst Add. Discharge Instructions: Call orthopedics on Sunday to set up a follow-up appointment. Take Toradol every 6 hours as needed for pain with food. Wear Brock bandage and use crutches for comfort. Apply ice for 20 minutes at a time several times a day. Return for severe pain, or any other new, concerning, or worsening symptoms. All discharge instructions reviewed with patient and/or family. Voiced understanding. Scripts Ketorolac Tromethamine (Ketorolac Tromethamine) 10 Mg Tablet 10 MG PO Q6H, #28 TAB 0 Refills Prov: SOFÍA CARDENAS APRN 02/17/23 ATTENDING PHYSICIAN NOTE: I was physically present as attending physician in the emergency department during the care of this patient. I discussed clinical presentation with SENIOR ANALYST and recommended US for suspicion of Landin's cyst and rule out of DVT because US was available at that time. I did not personally interview or examine this patient. We discussed pain management and need for referral to orthopedics. I was not otherwise directly involved in the decision making or delivery of care fo (RADHA SOLIZ MD) SOFÍA CARDENAS APRN Feb 17, 2023 13:22 RADHA SOLIZ MD Feb 19, 2023 14:28
[2023-02-17 13:26] LABS: ALBUMIN 4.1 GM/DL (3.2-4.5); POTASSIUM 4.1 MMOL/L (3.6-5.0)
[2023-02-17 13:27] LABS: CALCIUM 9.1 MG/DL (8.5-10.1)
[2023-02-17 13:28] LABS: TOTAL PROTEIN 7.3 GM/DL (6.4-8.2)
[2023-02-17 13:30] LABS: BILIRUBIN,TOTAL 0.4 MG/DL (0.1-1.0)
[2023-02-17 13:32] LABS: CREATININE SERUM 0.76 MG/DL (0.60-1.30)
--- NOTE | 2023-02-17 13:55 | Diagnostic Imaging Report ---
INDICATION: knee pain TECHNIQUE: 3 views of the right knee CORRELATION STUDY: None FINDINGS: The joint spaces are maintained. The articular surfaces are smooth and preserved. There is no acute bony abnormality. Soft tissues are unremarkable. IMPRESSION: 1. Negative for acute bony abnormality of the knee. Dictated by: Dictated on workstation # [id number]
[2023-02-17 13:59] LABS: ERYTHROCYTE SEDIMENTATION RATE 29 MM/HR (0-20)
[2023-02-17] MEDS ORDERED: fentaNYL INJ 100 MCG/2 ML AMP IVP ONE (14:00)
--- NOTE | 2023-02-17 15:19 | Diagnostic Imaging Report ---
INDICATION: Posterior knee pain TECHNIQUE: Multiple real-time grayscale images were obtained over the right lower extremity in various projections, bilaterally. Additional duplex Doppler and color Doppler images were also obtained. CORRELATION STUDY: None FINDINGS: Color and grayscale sonographic images demonstrate no intraluminal defect within the visualized portion of the common femoral, superficial femoral and/or popliteal veins to suggest thrombus formation. These vessels demonstrate normal response to compression and augmentation. Slightly complex fluid collection posterior medial popliteal fossa, 2.6 x 0.8 x 1.2 cm. IMPRESSION: 1. Negative for deep venous thrombosis of the right leg. 2. Complex fluid collection medial popliteal fossa. Could reflect a complex posadas's cyst. Dictated by: Dictated on workstation # [id number]
[2023-02-17] MEDS ORDERED: KETO10TA PO (15:33)
== END 2023-02-17 15:37 | disposition home or self-care (01) ==
LOC: EDUNIT# 11:57 → ER 12:03
DX: M71.21 Synovial cyst of popliteal space [Baker], right knee (principal); R70.0 Elevated erythrocyte sedimentation rate; R79.82 Elevated C-reactive protein (CRP)
CPT/HCPCS: 36415; 73562; 80053; 85025; 85652; 86141

== ENCOUNTER 2023-02-22 12:17 | Inpatient (IN) | payer MEDICAID ==
[2023-02-22] VITALS (8 sets, daily range): BP systolic 105–133; BP diastolic 61–90
[~2023-02-22] VITALS: Ht 160 cm; Wt 59.0 kg
[~2023-02-22 12:17] MED LIST changes: +KETO10TA PO
[2023-02-22 12:58] LABS: BASOPHILS % (AUTO) 0 % (0-10); EOSINOPHILS % (AUTO) 0 % (0-10); HEMATOCRIT 33 % (35-52); HEMOGLOBIN 10.9 g/dL (11.5-16.0); LYMPHOCYTES # (AUTO) 0.5 10^3/uL (1.0-4.0); LYMPHOCYTES % (AUTO) 4 % (12-44); MEAN CORPUSCULAR HEMOGLOBIN 28 pg (25-34); MEAN CORPUSCULAR HGB CONC 33 g/dL (32-36); MEAN CORPUSCULAR VOLUME 84 fL (80-99); MEAN PLATELET VOLUME 11.7 fL (9.0-12.2); MONOCYTES # (AUTO) 0.5 10^3/uL (0.0-1.0); MONOCYTES % (AUTO) 4 % (0-12); NEUTROPHILS # (AUTO) 11.8 10^3/uL (1.8-7.8); NEUTROPHILS % (AUTO) 91 % (42-75); PLATELET COUNT 244 10^3/uL (130-400); WHITE BLOOD COUNT 12.9 10^3/uL (4.3-11.0)
[2023-02-22 12:59] LABS: ALBUMIN 3.6 GM/DL (3.2-4.5); POTASSIUM 3.4 MMOL/L (3.6-5.0)
[2023-02-22] MEDS ORDERED: fentaNYL INJ 100 MCG/2 ML AMP IVP ONE ×2 (13:00→14:45)
[2023-02-22 13:02] LABS: TOTAL PROTEIN 7.2 GM/DL (6.4-8.2)
[2023-02-22 13:04] LABS: BILIRUBIN,TOTAL 0.4 MG/DL (0.1-1.0)
[2023-02-22 13:06] LABS: CREATININE SERUM 0.75 MG/DL (0.60-1.30)
[2023-02-22 13:08] LABS: URIC ACID 2.4 MG/DL (2.6-7.2)
--- NOTE | 2023-02-22 13:08 | ED Lower Extremity ---
General Chief Complaint: Lower Extremity Stated Complaint: LT FOOT PAIN | SWELLING Nursing Triage Note: pt woke up yesterday morning with redness, pain, and swelling to left foot. pt seen at [facility] and diagnosed with gout and prescribed prednisone. today, pain and swelling is worse. heat present on palpation. Source: patient Exam Limitations: no limitations (SOFÍA CARDENAS APRN) History of Present Illness Date Seen by Provider: Feb 22, 2023 Time Seen by Provider: 12:40 Initial Comments 32-year-old female presents to the ED with complaints of left foot swelling and pain which started upon awakening 3 days ago. She states she was seen at the [facility] clinic 2 days ago and diagnosed with gout. She was started on prednisone. Reports that the swelling and pain has gotten worse over the last 2 days. Reports limited range of motion, states she can barely move her toes. She states that when she walks, it feels like her foot is going to explode. Denies any injury to the foot or ankle. Denies fevers. Reports some nausea, thinks is due to the prednisone. States she has tried [place], Toradol, Reglan, naproxen for pain without any relief. Denies any past medical history, does not take any medications regularly. I saw patient on 02/17/2023 for right knee pain with diagnosis of Landin's cyst. She states that the pain in her right knee has subsided. (SOFÍA CARDENAS APRN) Allergies and Home Medications Allergies Coded Allergies: No Known Drug Allergies (Verified , 06/02/20) Patient Home Medication List Home Medication List Reviewed: Yes (SOFÍA CARDENAS APRN) Ketorolac Tromethamine (Ketorolac Tromethamine) 10 Mg Tablet, 10 MG PO Q6H Prescribed by: Sofía Cardenas on 02/17/23 1533 Vits W-Ca,Fe,Fa(<1MG) () 1 Each Tablet, (Reported) Entered as Reported by: RAMU ROA on 03/14/10 2223 Review of Systems Constitutional: see HPI (SOFÍA CARDENAS APRN) Past Hoqlbjc-Sjsmvj-Yyblmo Hx Patient Social History Tobacco Use?: Yes Use of E-Cig and/or Vaping dev: Yes Substance use?: No Alcohol Use?: No Pt feels they are or have been: No (SOFÍA CARDENAS APRN) Immunizations Up To Date Tetanus Booster (TDap): Unknown PED Vaccines UTD: Yes Influenza Vaccine Up-to-Date: No; Not Current (SOFÍA CARDENAS APRN) Seasonal Allergies Seasonal Allergies: No (SOFÍA CARDENAS APRN) Past Medical History Surgery/Hospitalization HX: TUBES REMOVED. Surgeries: No Respiratory: No Cardiac: No Neurological: No Reproductive Disorders: No Sexually Transmitted Disease: No HIV/AIDS: No Gastrointestinal: No Musculoskeletal: No Endocrine: No HEENT: Yes (contacts/glasses) Cancer: No Psychosocial: No Integumentary: No Blood Disorders: No Adverse Reaction/Blood Tranf: No (SOFÍA CARDENAS APRN) Family Medical History Cardiovascular disease 19 FATHER Myocardial infarction 19 FATHER Physical Exam Vital Signs Vital Signs - First Documented 02/22/23 12:30 Temp 36.8 Pulse 94 Resp 18 B/P (MAP) 116/73 (87) Pulse Ox 99 O2 Delivery Room Air (VIKKI SANZ MD) Vital Signs Capillary Refill : (SOFÍA CARDENAS APRN) Height, Weight, BMI Height: 5'3.00" Weight: 115lbs. oz. 52.853684gv; 21.00 BMI Method:Stated General Appearance: WD/WN, no apparent distress Neck: supple, normal inspection Cardiovascular: regular rate, rhythm, no edema, no gallop, no JVD, no murmur Respiratory: lungs clear, normal breath sounds, no respiratory distress, no accessory muscle use Ankles: left ankle limited range of motion, left ankle pain, left ankle soft tissue tenderness, left ankle swelling, left ankle other (Sensation ankle intact, states her heel has decreased sensation) Feet: left foot limited range of motion, left foot pain, left foot soft tissue tenderness, left foot swelling, left foot other (Sensation intact, cap refill less than 2 seconds) Neurologic/Psychiatric: alert, normal mood/affect Skin: normal color, warm/dry (SOFÍA CARDENAS APRN) Ankles: left ankle other (Sensation ankle intact, states her heel has decreased sensation) (VIKKI SANZ MD) Procedures/Interventions Joint aspiration of the ankle was performed by myself with ultrasound guidance and real-time. Consent was obtained prior to procedure. 1% lidocaine was inf iltrated into the area with a 27-gauge needle. 2 cc of lidocaine was infiltrated. A 22-gauge needle was then used and 4 cc of purulent yellow fluid was aspirated. Patient tolerated the procedure well. (VIKKI SANZ MD) Progress/Results/Core Measures Results/Orders Lab Results Laboratory Tests Test 02/22/23 12:40 02/22/23 14:00 Range/Units White Blood Count 12.9 H 4.3-11.0 10^3/uL Red Blood Count 3.95 3.80-5.11 10^6/uL Hemoglobin 10.9 L 11.5-16.0 g/dL Hematocrit 33 L 35-52 % Mean Corpuscular Volume 84 80-99 fL Mean Corpuscular Hemoglobin 28 25-34 pg Mean Corpuscular Hemoglobin Concent 33 32-36 g/dL Red Cell Distribution Width 13.6 10.0-14.5 % Platelet Count 244 130-400 10^3/uL Mean Platelet Volume 11.7 9.0-12.2 fL Immature Granulocyte % (Auto) 1 % Neutrophils (%) (Auto) 91 H 42-75 % Lymphocytes (%) (Auto) 4 L 12-44 % Monocytes (%) (Auto) 4 0-12 % Eosinophils (%) (Auto) 0 0-10 % Basophils (%) (Auto) 0 0-10 % Neutrophils # (Auto) 11.8 H 1.8-7.8 10^3/uL Lymphocytes # (Auto) 0.5 L 1.0-4.0 10^3/uL Monocytes # (Auto) 0.5 0.0-1.0 10^3/uL Eosinophils # (Auto) 0.0 0.0-0.3 10^3/uL Basophils # (Auto) 0.0 0.0-0.1 10^3/uL Immature Granulocyte # (Auto) 0.1 0.0-0.1 10^3/uL Neutrophils % (Manual) 94 % Lymphocytes % (Manual) 1 % Monocytes % (Manual) 5 % Eosinophils % (Manual) 0 % Basophils % (Manual) 0 % Band Neutrophils 0 % Blood Morphology Comment NORMAL Erythrocyte Sedimentation Rate 60 H 0-20 MM/HR Sodium Level 137 135-145 MMOL/L Potassium Level 3.4 L 3.6-5.0 MMOL/L Chloride Level 101 98-107 MMOL/L Carbon Dioxide Level 26 21-32 MMOL/L Anion Gap 10 5-14 MMOL/L Blood Urea Nitrogen 14 7-18 MG/DL Creatinine 0.75 0.60-1.30 MG/DL Estimat Glomerular Filtration Rate 110 BUN/Creatinine Ratio 19 Glucose Level 108 H 70-105 MG/DL Uric Acid 2.4 L 2.6-7.2 MG/DL Calcium Level 9.0 8.5-10.1 MG/DL Corrected Calcium 9.3 8.5-10.1 MG/DL Total Bilirubin 0.4 0.1-1.0 MG/DL Aspartate Amino Transf (AST/SGOT) 13 5-34 U/L Alanine Aminotransferase (ALT/SGPT) 20 0-55 U/L Alkaline Phosphatase 108 40-136 U/L C-Reactive Protein High Sensitivity 21.51 H 0.00-0.50 MG/DL Total Protein 7.2 6.4-8.2 GM/DL Albumin 3.6 3.2-4.5 GM/DL Body Fluid Source SYNOVIAL Body Fluid Color PALE YELLOW Body Fluid Appearance MKD CLDY Body Fluid WBC 75.017 10^3/uL Body Fluid RBC 0.020 10^6/uL Body Fl Polynuclear WBCs (%)(Auto) 82.3 % Body Fluid Mononuclear Cells % Auto 17.7 % Body Fluid Slide Review Yes Body Fluid Crystals NOT SEEN Body Fluid Glucose < 10 MG/DL Body Fluid Total Protein 3.9 G/DL Body Fluid Lactate Dehydrogenase 19128 U/L (VIKKI SANZ MD) My Orders Orders - VIKKI SANZ MD Crystals,Body Fluid (02/22/23 14:05) Body Fluid Cell Count (02/22/23 14:05) Glucose,Body Fluid (02/22/23 14:05) Total Protein,Body Fluid (02/22/23 14:05) Body Fluid Culture (02/22/23 14:05) Ldh,Body Fluid (02/22/23 14:05) (VIKKI SANZ MD) Medications Given in ED Current Medications Medications Dose Ordered Sig/Anand Route Start Time Stop Time Status Last Admin Dose Admin Ceftriaxone Sodium 2000 mg/ Sodium Chloride 50 ml @ 100 mls/hr ONCE ONCE IV 02/22/23 15:00 4/6/23 15:29 DC 02/22/23 15:16 100 MLS/HR Fentanyl Citrate 25 mcg ONCE ONCE IVP 02/22/23 13:00 02/22/23 13:01 DC 02/22/23 13:09 25 MCG Fentanyl Citrate 50 mcg ONCE ONCE IVP 02/22/23 14:45 02/22/23 14:46 DC 02/22/23 14:49 50 MCG Vancomycin HCl 1000 mg/Sodium Chloride 250 ml @ 250 mls/hr ONCE ONCE IV 02/22/23 15:00 02/22/23 15:59 DC 02/22/23 15:16 250 MLS/HR (VIKKI SANZ MD) Vital Signs/I&O 02/22/23 12:30 Temp 36.8 Pulse 94 Resp 18 B/P (MAP) 116/73 (87) Pulse Ox 99 O2 Delivery Room Air (VIKKI SANZ MD) Blood Pressure Mean: 87 Progress Progress Note : Time: 13:06 Progress Note Patient seen and evaluated, resting comfortably in bed, no acute distress. Differential diagnosis includes but is not limited to septic arthritis, gout, osteomyelitis, cellulitis. Left ankle and foot swelling, tender to palpation, warm to touch, non erythemic, no crepitus palpated, decreased range of motion, sensation intact in the toes and ankle, patient reports decreased sensation in the heel, cap refill less than 2 seconds. Work-up initiated including CBC, CMP, ESR, CRP, uric acid, x-ray. Fentanyl ordered for pain. 1335 labs reviewed. CBC shows elevated WBC 12.9, decreased hemoglobin 10.9, decreased hematocrit 33, elevated neutrophils 91. ESR elevated 60. CMP shows slightly decreased potassium 3.4. Uric acid low at 2.4. CRP elevated 21.51. X- rays reviewed, no osseous abnormality. This is potentially septic joint, patient denies any IV drug use or history of STDs. 1457 results of ankle joint aspiration reviewed. It shows WBC 75,000, RBC 0.020, Polynucl WBC 18.3, mononuclear 17.7, negative for crystals. Still pending further results. Dr. Flores, orthopedics called for consultation. He is going to come and see the patient. Patient updated on results so far. Vancomycin and Rocephin ordered. 1544 Dr. Flores, orthopedics, at bedside seen patient. He would like to take patient to the OR tonight, and admit for at least 2 days. He asked me to place bridge orders. He is okay with patient going to inpatient room at this time, since the OR is not currently available. He will take patient to the OR once it is available. (SOFÍA CARDENAS APRN) Diagnostic Imaging Diagonstic Imaging: Xray Plain Films/CT/US/NM/MRI: other (Foot) Comments [facility] [place], [place] NAME: TOMAS OGDEN MED REC#: [id number] PT STATUS: REG ER : 1990 PHYSICIAN: SOFÍA CARDENAS APRN ADMIT DATE: 02/22/23/ER Signed Date of Exam:02/22/23 FOOT, LEFT, 3 VIEWS INDICATION: Left foot pain. Time of Exam: 1:07 PM 3 views of the left foot were obtained. The metatarsals appear to be intact. The phalanges are intact. Midfoot and hindfoot are unremarkable. No fractures are seen. IMPRESSION: No acute bony abnormality is detected. Dictated by: Dictated on workstation # [id number] Dict: 02/22/23 1334 Trans: 02/22/23 1615 [facility] [id number] Interpreted by: SHANKAR RUIZ MD Electronically signed by: SHANKAR RUIZ MD 02/22/23 1619 Diagonstic Imaging: Xray Plain Films/CT/US/NM/MRI: ankle Comments [facility]. [place], [place] NAME: TOMAS OGDEN [facility] REC#: [id number] PT STATUS: REG ER : 1990 PHYSICIAN: SOFÍA CARDENAS APRN ADMIT DATE: 02/22/23/ER Signed Date of Exam:02/22/23 ANKLE, LEFT, 3 VIEWS INDICATION: Severe left ankle pain. Time of Exam: 1:04 PM 3 views of left ankle were obtained. FINDINGS: Alignment is normal. Ankle mortise is well-maintained. Talar dome is smooth. No fracture or dislocation is seen. There does appear to be generalized soft tissue swelling about the medial and lateral ankle. IMPRESSION: Soft tissue swelling. No acute bony abnormality is detected. Dictated by: Dictated on workstation # [id number] Dict: 02/22/23 1334 Trans: 02/22/23 1615 [id number] Interpreted by: SHANKAR RUIZ MD Electronically signed by: SHANKAR RUIZ MD 02/22/23 1615 (SOFÍA CARDENAS APRN) Departure Communication (Admissions) Time/Spoke to Consulting Phy: 14:57 Dr. Flores, orthopedics, called for consultation. He is going to come and see the patient. (SOFÍA CARDENAS APRN) Impression Primary Impression: Septic joint Disposition: ADMITTED INPATIENT Condition: Stable Admissions Decision to Admit Reason: Admit from ER (General) Decision to Admit/Date: Feb 22, 2023 Time/Decision to Admit Time: 15:44 (SOFÍA CARDENAS APRN) Departure-Patient Inst. Referrals: [facility] (PCP/Family) Primary Care Physician SOFÍA CARDENAS APRN Feb 22, 2023 13:08 VIKKI SANZ MD Feb 22, 2023 14:36
[2023-02-22 13:22] LABS: BAND NEUTROPHILS 0 %; BASOPHILS % (MANUAL) 0 %; EOSINOPHILS % (MANUAL) 0 %; LYMPHOCYTES % (MANUAL) 1 %; MONOCYTES % (MANUAL) 5 %; NEUTROPHILS % (MANUAL) 94 %; RBC MORPH NORMAL
[2023-02-22 13:23] LABS: ERYTHROCYTE SEDIMENTATION RATE 60 MM/HR (0-20)
--- NOTE | 2023-02-22 13:39 | Diagnostic Imaging Report ---
INDICATION: Left foot pain. Time of Exam: 1:07 PM 3 views of the left foot were obtained. The metatarsals appear to be intact. The phalanges are intact. Midfoot and hindfoot are unremarkable. No fractures are seen. IMPRESSION: No acute bony abnormality is detected. Dictated by: Dictated on workstation # [id number]
--- NOTE | 2023-02-22 13:41 | Diagnostic Imaging Report ---
INDICATION: Severe left ankle pain. Time of Exam: 1:04 PM 3 views of left ankle were obtained. FINDINGS: Alignment is normal. Ankle mortise is well-maintained. Talar dome is smooth. No fracture or dislocation is seen. There does appear to be generalized soft tissue swelling about the medial and lateral ankle. IMPRESSION: Soft tissue swelling. No acute bony abnormality is detected. Dictated by: Dictated on workstation # [id number]
[2023-02-22 14:23] LABS: BODY FLUID APPEARENCE MKD CLDY; BODY FLUID COLOR PALE YELLOW; BODY FLUID SOURCE SYNOVIAL
[2023-02-22 14:27] LABS: BODY FLUID WBC TOTAL COUNT 75.017 10^3/uL
[2023-02-22] MEDS ORDERED: cefTRIAXone 2,000 MG in NS (IVPB) 50 ML IV ONE (15:00)
[2023-02-22] MEDS ORDERED: VANCOMYCIN INJECTION 1,000 MG in NS (IVPB) 250 ML IV ONE (15:00)
[2023-02-22 15:36] LABS: TOTAL PROTEIN,BODY FLUID 3.9 G/DL
[2023-02-22 15:44] LABS: GLUCOSE,BODY FLUID < 10 MG/DL
--- NOTE | 2023-02-22 15:59 | Progress Note-Post Operative ---
Post-Operative Progess Note Surgeon (s)/Boiler Mechanic (s) Surgeon ANSON MEDINA MD Boiler Mechanic: Anton Lackey Pre-Operative Diagnosis left ankle septic arthritis Post-Operative Diagnosis left ankle septic arthritis Procedure & Operative Findings Date of Procedure 02/22/23 Procedure Performed/Findings left ankle arthroscopic irrigation and debridement Anesthesia Type GETA Estimated Blood Loss Estimated blood loss (mL): 50 ml Specimens/Packing Specimens Removed none Packing: none ANSON MEDINA MD Feb 22, 2023 15:59
--- NOTE | 2023-02-22 15:59 | Progress Note-Pre Operative ---
Pre-Operative Progress Note Date of Available H&P: Feb 22, 2023 Date H&P Reviewed: Feb 22, 2023 Time H&P Reviewed: 15:58 Changes from last HP none Pre-Operative Diagnosis: left ankle septic arthritis ANSON MEDINA MD Feb 22, 2023 15:59
[2023-02-22 16:08] LABS: LDH,BODY FLUID 10136 U/L
[2023-02-22] MEDS ORDERED: fentaNYL INJ 100 MCG/2 ML AMP ONE ×2 (16:55→18:31)
[2023-02-22] MEDS ORDERED: fentaNYL INJ 100 MCG/2 ML AMP IV PRN (17:30)
[2023-02-22] MEDS ORDERED: CATHETER FLUSH 10 ML SYR IVP PRN (17:30)
[2023-02-22] MEDS ORDERED: ONDANSETRON 4 MG/2 ML (SDV) Z0FRAN IV PRN (17:30)
[2023-02-22] MEDS ORDERED: HYDR-3817 PO (18:15)
[2023-02-22] MEDS ORDERED: ONDANSETRON 4 MG/2 ML (SDV) Z0FRAN IVP PRN ×2 (18:15→19:45)
[2023-02-22] MEDS ORDERED: NALOXONE 0.4 MG/ML 1 ML (NARCAN) VIAL IV PRN (18:15)
[2023-02-22] MEDS ORDERED: LACTATED RINGERS 1,000 ML IV PRN (18:15)
[2023-02-22] MEDS ORDERED: fentaNYL INJ 100 MCG/2 ML AMP IVP PRN (18:15)
[2023-02-22] MEDS ORDERED: PIPERACILLIN SODIUM/TAZOBACTAM 4.5 GM in NS (IVPB) 100 ML IV NR (18:30)
[2023-02-22] MEDS ORDERED: ONDANSETRON 4 MG/2 ML (SDV) Z0FRAN ONE (18:31)
[2023-02-22] MEDS ORDERED: BUPIVACAINE 0.25% 30 ML (SENSORCAINE) VIAL ONE (18:31)
[2023-02-22] MEDS ORDERED: MIDAZOLAM 2 MG/2 ML (VERSED) VIAL ONE (18:31)
[2023-02-22] MEDS ORDERED: proPOfol 200 MG/20 ML (DIPRIVAN) VIAL IV ONE (18:31)
[2023-02-22] MEDS ORDERED: LIDOCAINE PF 2% 5 ML (XYLOCAINE) VIAL ONE (18:31)
--- NOTE | 2023-02-22 19:06 | HISTORY AND PHYSICAL ---
DATE OF SERVICE: 02/22/2023 REASON FOR ADMISSION: Suspected left ankle septic arthritis. SUMMARY: The patient is a 32-year-old female who reports a 24-hour history of progressively worsening left ankle and foot swelling and pain. She reports it started 3 days ago. She was treated at [facility] 2 days ago and diagnosed with gout. She was started on prednisone. Following that, she reported increased pain, swelling, redness and loss of motion. She denies fever, chills, night sweats. She reports no recent illnesses. She reports no penetrating trauma. Reports no injuries to her ankle. She reports she did have some knee pain. Reports this result. She has no history of gout. She does report a history of previous illicit drug use, but reports that she currently is not a drug user. ALLERGIES: NO KNOWN DRUG ALLERGIES. HOME MEDICATIONS: Ketorolac. PAST SURGICAL HISTORY: Tubal ligation. FAMILY HISTORY: Significant for cardiovascular disease. PHYSICAL EXAMINATION: GENERAL: The patient is well-developed, well-nourished, in minimal distress. HEENT: Normocephalic, atraumatic. Pupils are equal, round, reactive to light. Oropharynx is clear. NECK: Supple. No lymphadenopathy. LUNGS: Clear to auscultation bilaterally. HEART: Regular rate and rhythm. ABDOMEN: Soft, nontender, nondistended. EXTREMITIES: The left ankle demonstrates markedly painful range of motion. There is erythema and warmth. Slight effusion. Sensation is intact distally. LABORATORY RESULTS: An aspirate was performed by [ ] which revealed 4 mL of purulent fluid with 35,000 white cells and no crystals. Her CBC demonstrated elevated white count, her sed rate was 60 and her CRP was 21.5. Her uric acid was low. IMPRESSION: Septic arthritis, left ankle. PLAN: Irrigation and debridement of the left ankle. I discussed this with the patient. I explained to her that this will potentially require 48 hours of IV antibiotics and possible repeat irrigation and debridement if the infection is not resolving. We discussed risks, benefits, options, ramifications and recovery. She understands and wishes to proceed. Job ID: [id number] DocumentID: [id number] Dictated Date: 02/22/2023 15:58:25 Supervisor Roving Department Date: 02/22/2023 19:04:00 Dictated By: ANSON MEDINA MD
[2023-02-22] MEDS ORDERED: SEVOFLURANE (ULTANE) 15 ML INHAL SOLN ONE (19:28)
[2023-02-22] MEDS ORDERED: morphine INJ 10 MG/ML 1ML (SYR OR VIAL) IVP ONE (19:45)
[2023-02-22] MEDS ORDERED: PROMETHAZINE INJ 25 MG/ML (PHENERGAN) AMP IVP ONE (19:45)
[2023-02-22] MEDS ORDERED: HYDROmorphone 2 MG/ML VIAL (DILAUDID) IV ONE (19:45)
[2023-02-22] MEDS ORDERED: MEPERIDINE (DEMEROL) INJ 50 MG/ML IVP ONE (19:45)
[2023-02-22] MEDS ORDERED: morphine INJ 10 MG/ML 1ML (SYR OR VIAL) ONE (19:50)
[2023-02-22] MEDS: HYDROcodone/APAP 7.5 MG/325 MG (LORTAB, LORCET PLUS) TABLET PO PRN (20:36)
[2023-02-22] MEDS: CATHETER FLUSH 10 ML SYR IVP SCH (20:37)
--- NOTE | 2023-02-22 22:41 | OPERATIVE REPORT ---
DATE OF SERVICE: 02/22/2023 PREOPERATIVE DIAGNOSIS: Left ankle septic arthritis. POSTOPERATIVE DIAGNOSIS: Left ankle septic arthritis. PROCEDURE: Left ankle arthroscopic irrigation and debridement. SURGEON: Cristi Flores MD TRAY DELIVERY AIDE: Anton SANCHEZ, who assisted throughout the procedure and closed the incisions. ANESTHESIA: General endotracheal by Kedar Quintana CRNA. TOURNIQUET TIME: Not applicable. ESTIMATED BLOOD LOSS: Minimal. DRAINS: None. COMPLICATIONS: None. POSTOPERATIVE PLAN: IV antibiotics with following of the cultures closely. The patient was transferred to recovery room awake and stable condition. STATEMENT OF MEDICAL NECESSITY: The patient is a 32-year-old female who presented to the emergency department today with complaints of left ankle swelling and pain, this was aspirated by ER physician and she was found to have 75,000 white cells with no crystals. Her CRP and sed rate were elevated. Because of this, it was recommended the patient undergo operative intervention. After the ankle was aspirated and sent for culture, the patient was given Rocephin and vancomycin in the emergency department. DESCRIPTION OF PROCEDURE: After risks and benefits of the procedure were discussed and questions were answered and informed consent was signed and placed on the chart, the operative site was confirmed in the preoperative holding initialed by surgeon. The patient was then transferred to the operating room. After adequate levels of general endotracheal anesthetic were obtained, timeout was called, confirming the operative site. The left lower extremity was prepped and draped in the usual sterile fashion. The ankle joint was injected with 20 mL of fluid. Two portals were placed, one just medial to the anterior tibialis and one just lateral to the peroneus tertius. These were carefully made and the scope was inserted. There was dense synovitis noted anteriorly, which was resected with the shaver under direct visualization. The articular surfaces demonstrated no gross abnormalities. No loose bodies were noted. No gross purulence was noted. The scope was placed in through both portals with inflow cannula irrigating the medial and lateral gutters as well. The ankle was irrigated with a total of 9 liters of fluid. The portal sites were then closed with a 4-0 nylon in vertical mattress interrupted fashion. The incisions were infiltrated with plain Marcaine. A soft dressing was applied. The patient was transferred to the recovery room, awake and in stable condition. Job ID: [id number] DocumentID: [id number] Dictated Date: 02/22/2023 19:38:02 Beeswax Bleacher Date: 02/22/2023 22:38:00 Dictated By: CRISTI FLORES MD
[2023-02-23] MEDS: HYDROcodone/APAP 7.5 MG/325 MG (LORTAB, LORCET PLUS) TABLET PO PRN ×4 (00:22→14:19)
[2023-02-23] MEDS ORDERED: PIPERACILLIN SODIUM/TAZOBACTAM 4.5 GM in NS (IVPB) 100 ML IV SCH (00:30)
[2023-02-23 03:43] VITALS: BP 89/54
[2023-02-23] MEDS ORDERED: VANCOMYCIN INJECTION 1,000 MG in NS (IVPB) 250 ML IV SCH (04:00)
[2023-02-23 04:34] VITALS: BP 97/53
[2023-02-23] MEDS: CATHETER FLUSH 10 ML SYR IVP SCH ×2 (04:58→14:23)
--- NOTE | 2023-02-23 07:08 | Progress Note ---
Standard Progress Note Progress Notes/Assess & Plan Date Seen by a Provider: Feb 23, 2023 Time Seen by a Provider: 06:59 Progress/Assessment & Plan no complaints Vital Signs Date Time Temp Pulse Resp B/P (MAP) Pulse Ox O2 Delivery O2 Flow Rate FiO2 02/23/23 04:34 36.3 62 16 97/53 (68) 96 Room Air 02/23/23 03:43 36.3 65 16 89/54 (66) 94 Room Air 02/22/23 23:25 36.3 87 16 105/61 (76) 97 Room Air 02/22/23 20:45 Room Air 02/22/23 20:17 36.1 81 18 122/78 (93) Room Air 02/22/23 20:10 37.5 14 121/73 (89) 98 Room Air 02/22/23 20:10 Room Air 02/22/23 20:00 12 124/88 (100) 100 Room Air 02/22/23 20:00 OxyMask 4.00 02/22/23 19:50 18 127/87 (100) 100 OxyMask 4.00 02/22/23 19:45 OxyMask 4.00 02/22/23 19:40 28 131/90 (104) 100 OxyMask 8 02/22/23 19:33 OxyMask 8 02/22/23 19:33 37.9 22 133/86 (102) 97 OxyMask 8 02/22/23 17:22 37.4 86 18 118/69 (85) 95 Room Air 02/22/23 17:10 99 Room Air 02/22/23 16:31 103/71 02/22/23 12:30 36.8 94 18 116/73 (87) 99 Room Air I & O 02/23/23 07:00 Intake Total 1300 ml Output Total 500 ml LLE--intact FBalance 800 ml LLE--intact DF and PF of toes and ankle s/p I and D left ankle await Micro results possible repeat I and D tomorrow ANSON MEDINA MD Feb 23, 2023 07:08
[2023-02-23 07:28] LABS: BASOPHILS % (AUTO) 0 % (0-10); EOSINOPHILS % (AUTO) 0 % (0-10); HEMATOCRIT 24 % (35-52); LYMPHOCYTES % (AUTO) 22 % (12-44); MEAN CORPUSCULAR HEMOGLOBIN 28 pg (25-34); MEAN CORPUSCULAR HGB CONC 34 g/dL (32-36); MEAN CORPUSCULAR VOLUME 83 fL (80-99); MEAN PLATELET VOLUME 11.8 fL (9.0-12.2); MONOCYTES # (AUTO) 0.7 10^3/uL (0.0-1.0); MONOCYTES % (AUTO) 8 % (0-12); NEUTROPHILS # (AUTO) 6.1 10^3/uL (1.8-7.8); NEUTROPHILS % (AUTO) 69 % (42-75); PLATELET COUNT 180 10^3/uL (130-400); WHITE BLOOD COUNT 8.8 10^3/uL (4.3-11.0)
[2023-02-23 07:48] LABS: BAND NEUTROPHILS 0 %; BASOPHILS % (MANUAL) 0 %; EOSINOPHILS % (MANUAL) 0 %; LYMPHOCYTES % (MANUAL) 20 %; MONOCYTES % (MANUAL) 7 %; NEUTROPHILS % (MANUAL) 73 %; POLYCHROMASIA SLIGHT
[2023-02-23 08:03] VITALS: BP 91/49
[2023-02-23 09:49] VITALS: BP 99/65
--- NOTE | 2023-02-23 11:43 | Progress Note ---
Standard Progress Note Progress Notes/Assess & Plan Date Seen by a Provider: Feb 23, 2023 Time Seen by a Provider: 11:41 Progress/Assessment & Plan no complaints Vital Signs Date Time Temp Pulse Resp B/P (MAP) Pulse Ox O2 Delivery O2 Flow Rate FiO2 02/23/23 04:34 36.3 62 16 97/53 (68) 96 Room Air 02/23/23 03:43 36.3 65 16 89/54 (66) 94 Room Air 02/22/23 23:25 36.3 87 16 105/61 (76) 97 Room Air 02/22/23 20:45 Room Air 02/22/23 20:17 36.1 81 18 122/78 (93) Room Air 02/22/23 20:10 37.5 14 121/73 (89) 98 Room Air 02/22/23 20:10 Room Air 02/22/23 20:00 12 124/88 (100) 100 Room Air 02/22/23 20:00 OxyMask 4.00 02/22/23 19:50 18 127/87 (100) 100 OxyMask 4.00 02/22/23 19:45 OxyMask 4.00 02/22/23 19:40 28 131/90 (104) 100 OxyMask 8 02/22/23 19:33 OxyMask 8 02/22/23 19:33 37.9 22 133/86 (102) 97 OxyMask 8 02/22/23 17:22 37.4 86 18 118/69 (85) 95 Room Air 02/22/23 17:10 99 Room Air 02/22/23 16:31 103/71 02/22/23 12:30 36.8 94 18 116/73 (87) 99 Room Air I & O 02/23/23 07:00 Intake Total 1300 ml Output Total 500 ml LLE--intact FBalance 800 ml LLE--intact DF and PF of toes and ankle s/p I and D left ankle await Micro results possible repeat I and D tomorrow Final Diagnosis Gram stain indicates likely Neiseria informed patient of results and need for abx treatment and treatment of her partner Dr Mayorga to coordinate abx treatment and patient to FU with Dr Torres as outpatient FU with [place] appreciate assistance ANSON MEDINA MD Feb 23, 2023 11:43
--- NOTE | 2023-02-23 11:46 | Consultation - Hospitalist ---
ARRON HANKINS Zainab 02/23/23 1146: HPI History of Present Illness: HPI/Chief Complaint 32 yr female who presented to ED with worsening left ankle and foot swelling. Joint aspiration revealed WBCs and culture came back positive for N. Gonnorrhea. Pt is status post irrigation and debridment of left ankle joint. Pt continues with IV antibiotics. Today pt reports that she is feeling better and pain has improved. Denies any CP, SOB, fever, chills, N/V, and weakness. No other complaints. Date Seen 02/23/23 Attending Physician [place] PCP Admitting Physician: Cristi Flores MD Attending Physician: Cristi Flores MD Referring Physician Date of Admission Feb 22, 2023 at 16:28 Home Medications & Allergies Home Medications Reviewed patient Home Medication Reconciliation performed by pharmacy medication reconciliations dairy technician and/or nursing. Patients Allergies have been reviewed. Allergies Allergies Coded Allergies No Known Drug Allergies (Verified02/22/23) Past Newmlwq-Avezjr-Rmoxzq Hx Patient Social History Tobacco Use?: Yes Use of E-Cig and/or Vaping dev: Yes Substance use?: No Alcohol Use?: No Pt feels they are or have been: Unable to obtain Immunizations Up To Date Tetanus Booster (TDap): Unknown Hepatitis A: Yes Hepatitis B: Yes PED Vaccines UTD: Yes Seasonal Allergies Seasonal Allergies: No Current Status status: No Advance Directives: No Communicates: Verbally Primary Language: Czech Preferred Spoken Language: Czech Sensory deficits: Vision impairment Past Medical History Currently Using CPAP: No Currently Using BIPAP: No Sexually Transmitted Disease: No HIV/AIDS: No Blood Disorders: No Adverse Reaction/Blood Tranf: No History of SVT at age 17 Family Medical History Cardiovascular disease 19 FATHER Myocardial infarction 19 FATHER Review of Systems Musculoskeletal: other (ankle pain) All Other Systems Reviewed Negative Unless Noted: Yes Physical Exam Physical Exam Vital Signs Vital Signs - First Documented 02/22/23 12:30 Temp 36.8 Pulse 94 Resp 18 B/P (MAP) 116/73 (87) Pulse Ox 99 O2 Delivery Room Air Capillary Refill : Height, Weight, BMI Height: 5'3.00" Weight: 115lbs. oz. 52.289816hu; 23.04 BMI Method:Stated General Appearance: No Apparent Distress, WD/WN HEENT: PERRL/EOMI Respiratory: Chest Non Tender, Lungs Clear, Normal Breath Sounds, No Accessory Muscle Use, No Respiratory Distress Cardiovascular: Regular Rate, Rhythm, No Edema, No Murmur, Normal Peripheral Pulses Neurologic/Psychiatric: Alert, Oriented x3, Normal Mood/Affect Skin: Normal Color, Warm/Dry Lymphatic: No Adenopathy Results Results/Procedures Labs Laboratory Tests 02/22/23 12:40 02/23/23 07:20 Patient resulted labs reviewed. Assessment/Plan Assessment and Plan Assess & Plan/Chief Complaint Septic joint - N. Gonorrhea Ceftriaxone 1g q24hrs pain meds prn CBC CMP Continue home meds as indicated DVT Prophylaxis: SCDs Code status: Full LOLA ART DO 02/24/23 0651: Past Bnlauup-Fvigsc-Swfoqy Hx Family Medical History Cardiovascular disease 19 FATHER Myocardial infarction 19 FATHER Review of Systems Constitutional: see HPI Physical Exam Physical Exam General Appearance: No Apparent Distress, WD/WN, Chronically ill Supervisory-Addendum Brief Verification & Attestation Participated in pt care: history, MDM, physical Personally performed: exam, history, MDM, supervision of care Care discussed with: Medical Student Procedures: n/a Results interpretation: Verified all documentation Verification and Attestation of Medical Student E/M Service A medical student performed and documented this service in my presence. I reviewed and verified all information documented by the medical student and made modifications to such information, when appropriate. I personally performed the physical exam and medical decision making. Lola Art, Feb 24, 2023,06:51 ARRON HANKINS Feb 23, 2023 11:46 LOLA ART DO Feb 24, 2023 06:51
[2023-02-23 12:15] VITALS: BP 112/69
[2023-02-23] MEDS ORDERED: DOCUSATE SODIUM 100 MG (COLACE) CAP PO SCH (13:45)
[2023-02-23] MEDS ORDERED: DOXY100T2 PO (14:36)
[2023-02-23] MEDS ORDERED: CFTR1V IV (14:37)
[2023-02-23] MEDS ORDERED: cefTRIAXone 2,000 MG in NS (IVPB) 50 ML IV SCH (15:00)
[2023-02-23 15:15] VITALS: BP 112/69
[2023-02-23] MEDS ORDERED: DOXYCYCLINE 100 MG (VIBRAMYCIN) TABLET PO SCH (17:00)
[2023-02-24] MEDS ORDERED: TROUGH ORDER-PHARMACY XX NR (03:00)
== END 2023-02-23 15:15 | disposition home or self-care (01) | DRG 494 ==
LOC: EDUNIT# 12:17 → ER 12:19 → 4TH 16:28
PROVIDERS: ADMIT Orthopaedic Surgery; ATTEND Orthopaedic Surgery
PROC: 0S9G3ZX Drainage of Left Ankle Joint, Percutaneous Approach, Diagnostic (ICD-10-PCS; 2023-02-22)
PROC: 0SBG4ZZ Excision of Left Ankle Joint, Percutaneous Endoscopic Approach (ICD-10-PCS; principal; 2023-02-22 18:33)
DX: M00.9 Pyogenic arthritis, unspecified (principal)
CPT/HCPCS: 10140; 36415; 73610; 73630; 80053; 82945; 83615; 84157; 84550; 85007; 85027; 85652; 86141; 87070; 87077; 87185; 87205; 89051; 89060

== ENCOUNTER 2023-03-02 10:10 | Outpatient (RCR) | payer MEDICAID ==
[2023-02-24] MEDS: cefTRIAXone 1 GM IV (PRE-MIX) 50 ML IV SCH (14:26)
[2023-02-24 14:27] VITALS: BP 123/79
--- NOTE | 2023-02-25 04:17 | Anesthesia-General Post-Op ---
General Patient Condition Mental Status/LOC: Same as Preop Cardiovascular: Satisfactory Nausea/Vomiting: Absent Respiratory: Satisfactory Pain: Controlled Complications: Absent Post Op Complications Complications None Follow Up Care/Instructions Patient Instructions None needed. Anesthesia/Patient Condition Patient Condition Patient is doing well, no complaints, stable vital signs, no apparent adverse anesthesia problems. No complications reported per nursing. AVIVA MONCADA CRNA Feb 25, 2023 04:17
[2023-02-25 13:29] VITALS: BP 103/58
[2023-02-25] MEDS: cefTRIAXone 1 GM IV (PRE-MIX) 50 ML IV SCH (13:33)
[2023-02-26 14:25] VITALS: BP 114/72
[2023-02-26] MEDS: cefTRIAXone 1 GM IV (PRE-MIX) 50 ML IV SCH (14:33)
[2023-02-27 14:10] VITALS: BP 121/73
[2023-02-27] MEDS: cefTRIAXone 1 GM IV (PRE-MIX) 50 ML IV SCH (14:26)
[2023-02-28 13:55] VITALS: BP 126/76
[2023-02-28] MEDS: cefTRIAXone 1 GM/NS 50 ML IVPB IV SCH ×4 (14:24→14:35)
[2023-03-01 14:24] VITALS: BP 130/80
[~2023-03-02] VITALS: Ht 160 cm; Wt 54.5 kg
[~2023-03-02 10:10] MED LIST changes: +CFTR1V IV; +DOXY100T2 PO; +HYDR-3817 PO; +NS (IVPB) 50 ML ONE; +ceFAZolin INJECTION 1,000 MG ONE; +cefTRIAXone PRE-MIX 50 ML IV ONE
[2023-03-02 10:33] VITALS: BP 135/89
[2023-03-02] MEDS: cefTRIAXone 1 GM/NS 50 ML IVPB IV SCH ×2 (10:37)
== END 2023-03-18 | disposition home or self-care (01) ==
LOC: 4THo 10:10
PROVIDERS: ATTEND Internal Medicine
DX: Z79.899 Other long term (current) drug therapy (principal)
CPT/HCPCS: 96365